=== PATIENT | female | born 1965 | race Caucasian/White ===

== ENCOUNTER → 2017-03-10 | Day surgery (SDC) | payer OTHER ==
[~2017-03-10] VITALS: Ht 160 cm; Wt 123.0 kg
[~2017-03-10] MED LIST: ALBUAER19 INH; ASPI81TA28 PO; CLB/200 PO; DIPH25TA24 PO; FENTANYL CITRATE INJ 50 MCG/1 ML 2 ML VIAL ONE; LACTATED RINGER'S 1000ML 1,000 ML IV ONE; LIDOCAINE HCL 2% 2 ML VIAL (20MG/ML) ONE; LISI-729 PO; LORA10TA51 PO; METF-384 PO; OMEG10007 PO; ONDANSETRON INJ 2 MG/ML 2 ML VIAL IV PRN; PROPOFOL IV EMULSION 10 MG/ML 20 ML VIAL IV ONE; SITA50TA3 PO
[2017-03-10 10:16] VITALS: Ht 160 cm; Wt 123.0 kg
[2017-03-10 10:28] VITALS: TEMP 36.5
--- NOTE | 2017-03-10 10:47 | Endo History and Physical ---
History & Physical Date of Service: Mar 10, 2017. Chief Complaint: SCREENING Referring Physician: DR Nolan GRAY History of Present Illness Patient referred for colon cancer screening today. She has a second-degree relative who had colon cancer in his mid 60s. She has no present symptoms. Past Surgical History Hx Cardiac Surgery: No Hx Internal Defibrillator: No Hx Pacemaker: No Hx Abdominal Surgery: Yes (TUBAL) Hx of Implantable Prosthesis: No Hx Post-Op Nausea and Vomiting: No Hx Cancer Surgery: No Hx Thoracic Surgery: No Hx Orthopedic: Yes (SCREWS RIGHT ANKLE) Hx Urinary Tract Surgery: No Tubal ligation Family History None, Polyp Social History Smoking Status: Current Every Day Smoker Hx Substance Use: No Hx Alcohol Use: No Allergies Coded Allergies: Ibuprofen (Verified Allergy, Unknown, RASH, 03/10/17) with brand name drug can take generic forms Naproxen (Verified Allergy, Unknown, rash, 03/10/17) Current Medications Reported Home Medications Medications Dose Route/Sig Max Daily Dose Days Date Category Januvia (Sitagliptin) 50 Mg Tab 50 Mg PO DAILY 03/10/17 Reported Zestril (Lisinopril) 5 Mg Tab 5 Mg PO DAILY 11/12/15 Reported CeleBREX (Celecoxib) 200 Mg Cap 200 Mg PO DAILY 11/12/15 Reported Claritin (Loratadine) 10 Mg Tab 10 Mg PO DAILY 11/12/15 Reported [place]-3 (Fish Oil) 1 Ea Cap 1 Cap PO DAILY 11/12/15 Reported Aspirin Ec (Aspirin) 81 Mg Tab 81 Mg PO DAILY 11/12/15 Reported Benadryl (Diphenhydramine Hcl) 25 Mg Tab 50 Mg PO Q4H PRN 04/07/15 Reported Ventolin Inhaler (Albuterol) Aers 2 Puffs INH UD PRN 11/15/14 Reported Vital Signs Weight (Kilograms): 123 Height (Feet): 5 Height (Inches): 3 Date Time Temp Pulse Resp B/P (MAP) Pulse Ox O2 Delivery O2 Flow Rate FiO2 03/10/17 10:28 36.5 75 18 147/64 (91) 97 Room Air Physical Exam General Appearance: no apparent distress Respiratory/Chest: Auscultation: breath sounds normal Cardiovascular: Heart Auscultation: RRR Assessment and Plan Patient for colon cancer screening today. We have discussed the risks and benefits of the procedure to include bleeding, infection, perforation and missed colonic polyps.
--- NOTE | 2017-03-10 12:42 | GI REPORT ---
Procedure Date: 03/10/2017 12:02 PM Procedure: Colonoscopy Indications: Screening for colorectal malignant neoplasm Medicines: Monitored Anesthesia Care Complications: No immediate complications. Estimated blood loss: Minimal. Estimated Blood Loss: Estimated blood loss was minimal. Procedure: Pre-Anesthesia Assessment: - Prior to the procedure, a History and Physical was performed, and patient medications, allergies and sensitivities were reviewed. The patient's tolerance of previous anesthesia was reviewed. - The risks and benefits of the procedure and the sedation options and risks were discussed with the patient. All questions were answered and informed consent was obtained. - Patient identification and proposed procedure were verified prior to the procedure by the physician, the nurse and the community planner. The procedure was verified in the procedure room. - Pre-procedure physical examination revealed no contraindications to sedation. - ASA Grade Assessment: III - A patient with severe systemic disease. - After reviewing the risks and benefits, the patient was deemed in satisfactory condition to undergo the procedure. - The anesthesia plan was to use monitored anesthesia care (MAC). - Immediately prior to administration of medications, the patient was re-assessed for adequacy to receive sedatives. - The heart rate, respiratory rate, oxygen saturations, blood pressure, adequacy of pulmonary ventilation, and response to care were monitored throughout the procedure. - The physical status of the patient was re-assessed after the procedure. After I obtained informed consent, the scope was passed under direct vision. Throughout the procedure, the patient's blood pressure, pulse, and oxygen saturations were monitored continuously. The scope was introduced through the anus and advanced to the terminal ileum. The colonoscopy was performed without difficulty. The patient tolerated the procedure well. The quality of the bowel preparation was good. Findings: The perianal and digital rectal examinations were normal. Pertinent negatives include normal sphincter tone. The terminal ileum appeared normal. A 5 mm polyp was found in the transverse colon. The polyp was sessile. The polyp was removed with a cold snare. Resection and retrieval were complete. Estimated blood loss was minimal. A 5 mm polyp was found in the sigmoid colon. The polyp was sessile. The polyp was removed with a cold snare. Resection and retrieval were complete. Estimated blood loss was minimal. Internal hemorrhoids were found during retroflexion. The hemorrhoids were mild. The exam was otherwise without abnormality. Impression: - The examined portion of the ileum was normal. - One 5 mm polyp in the transverse colon, removed with a cold snare. Resected and retrieved. - One 5 mm polyp in the sigmoid colon, removed with a cold snare. Resected and retrieved. - Internal hemorrhoids. - The examination was otherwise normal. Recommendation: - Discharge patient to home (ambulatory). - Advance diet as tolerated today. - Await pathology results. - Repeat colonoscopy in 3 - 5 years for surveillance based on pathology results. - Return to GI office PRN. Nicole Junior D.O. Nicole Junior, 03/10/2017 12:41:33 PM This report has been signed electronically. Note Initiated On: 03/10/2017 12:02 PM I attest to the content of the Intraoperative Record and orders documented therein, exceptions below
--- NOTE | 2017-03-10 12:45 | Anesthesiology Progress Note ---
Anesthesia Post Op Note Date & Time Mar 10, 2017 at 12:45 Vital Signs Pain Intensity: 0 Vital Signs Past 12 Hours Date Time Temp Pulse Resp B/P (MAP) Pulse Ox O2 Delivery O2 Flow Rate FiO2 03/10/17 12:41 75 18 111/63 (79) 96 Room Air 03/10/17 12:34 75 18 97/49 (65) 96 Room Air 03/10/17 10:28 36.5 75 18 147/64 (91) 97 Room Air Notes Mental Status: alert / awake / arousable, participated in evaluation Pt Amnestic to Procedure: Yes Nausea / Vomiting: adequately controlled Pain: adequately controlled Airway Patency, RR, SpO2: stable & adequate BP & HR: stable & adequate Hydration State: stable & adequate Anesthetic Complications: no major complications apparent
--- NOTE | 2017-03-10 12:46 | Discharge Instructions ---
Endoscopy Patient Instructions Date / Procedure(s) Performed Mar 10, 2017. Colonoscopy Allergy Information Coded Allergies: Ibuprofen (Verified Allergy, Unknown, RASH, 03/10/17) with brand name drug can take generic forms Naproxen (Verified Allergy, Unknown, rash, 03/10/17) Discharge Date / Findings Mar 10, 2017. Internal hemorrhoids 2 small colon polyps Medication Instructions Reported Home Medications Medications Dose Route/Sig Max Daily Dose Days Date Category Januvia (Sitagliptin) 50 Mg Tab 50 Mg PO DAILY 03/10/17 Reported Zestril (Lisinopril) 5 Mg Tab 5 Mg PO DAILY 11/12/15 Reported CeleBREX (Celecoxib) 200 Mg Cap 200 Mg PO DAILY 11/12/15 Reported Claritin (Loratadine) 10 Mg Tab 10 Mg PO DAILY 11/12/15 Reported [place]-3 (Fish Oil) 1 Ea Cap 1 Cap PO DAILY 11/12/15 Reported Aspirin Ec (Aspirin) 81 Mg Tab 81 Mg PO DAILY 11/12/15 Reported Benadryl (Diphenhydramine Hcl) 25 Mg Tab 50 Mg PO Q4H PRN 04/07/15 Reported Ventolin Inhaler (Albuterol) Aers 2 Puffs INH UD PRN 11/15/14 Reported Provider Instructions Activity Restrictions - No exercising or heavy lifting for 24 hours. - Do not drink alcohol the day of the procedure. - Do not drive a car or operate machinery until the day after the procedure. - Do not make any important decisions or sign important papers in 24 hours after the procedure. Following Day: - Return to full activity which may include returning to work/school. Diet Start your diet with liquids and light foods (jello, soup, juice, toast). Then eat your usual diet if not nauseated. Treatment For Common After Affects For mild abdominal pain, bloating, or excessive gas: - Rest - Eat lightly - Lie on right side Follow-Up Information Follow-up with DR Nolan GRAY as scheduled Repeat colonoscopy in 3-5 years depending on pathology results. Anesthesia Information What You Should Know You have had a procedure that required some medicine to reduce anxiety and discomfort. This treatment is called moderate sedation. After receiving the treatment, you may be sleepy, but you will be able to breathe on your own. The effects of the treatment may last for several hours. Follow these instructions along with Activity/Diet recommendations noted above: * Do NOT do anything where dizziness or clumsiness would be dangerous. * Rest quietly at home today, then you can be up and about tomorrow. * Have a responsible person stay with you the rest of today. * You may have had an I.V. today. If so, you may take the dressing off later today. Recommendations Call your doctor if: * Trouble breathing * Continuous vomiting for more than 24 hours * Temperature above 101 degrees * Severe abdominal pain or bloating * Pain not relieved by pain medicine ordered * There is increased drainage or redness from any incision * A large amount of rectal bleeding greater than 2-3 tablespoons. (If you had a polyp/s removed or have hemorrhoids, a small amount of blood - from the rectum is to be expected.) * You have any unanswered questions or concerns. IN THE EVENT OF A SERIOUS EMERGENCY, GO TO THE NEAREST EMERGENCY ROOM Your discharge instructions were prepared by provider Nicole Junior. Patient Instructions Signature Page Josey Rotmhan Patient (or Guardian) Signature/Date: I have read and understand the instructions given to me by my caregivers. Caregiver/RN/Doctor Signature/Date: The above-named patient and/or guardian has received patient instructions on this date. + Original Patient Signature Page (only) stays with chart. Please make copy for patient.
[2017-03-10 12:52] VITALS: BP 122/73; PULSE 72; O2SAT 98
== END | disposition home or self-care (01) ==
LOC: C.GI 09:57
PROVIDERS: ATTEND Internal Medicine Gastroenterology
DX: Z12.11 Encounter for screening for malignant neoplasm of colon (principal); D12.5 Benign neoplasm of sigmoid colon; D12.3 Benign neoplasm of transverse colon; F17.200 Nicotine dependence, unspecified, uncomplicated

== ENCOUNTER 2017-07-24 04:38 | Emergency (ER) | payer SELFPAY ==
[~2017-07-24] VITALS: Ht 160 cm; Wt 126.8 kg
[~2017-07-24 04:38] MED LIST changes: -FENTANYL CITRATE INJ 50 MCG/1 ML 2 ML VIAL ONE; -LACTATED RINGER'S 1000ML 1,000 ML IV ONE; -LIDOCAINE HCL 2% 2 ML VIAL (20MG/ML) ONE; -METF-384 PO; -ONDANSETRON INJ 2 MG/ML 2 ML VIAL IV PRN; -PROPOFOL IV EMULSION 10 MG/ML 20 ML VIAL IV ONE; +VARE1PAK15 PO
[2017-07-24 04:44] VITALS: TEMP 36.6; Ht 160 cm; Wt 126.8 kg
[2017-07-24 05:39] VITALS: O2SAT 98
[2017-07-24 05:58] LABS: BASO % 0.3 %; BASO ABS # 0.04 K/uL (0-0.2); EOS % 0.6 %; EOS ABS # 0.08 K/uL (0-0.5); HEMATOCRIT 42.5 % (37-47); HEMOGLOBIN 14.4 g/dL (12.0-16.0); IG# 0.03 K/uL (0.00-0.02); LYMPH % 29.2 %; LYMPH ABS # 3.77 K/uL (1.2-3.4); MEAN CELL VOLUME 87.6 fL (80-100); MEAN CORPUSCULAR HEMOGLOBIN 29.7 pg (25-34); MEAN CORPUSCULAR HGB CONC 33.9 g/dl (32-36); MEAN PLATELET VOLUME 9.8 fL (7.4-10.4); MONO % 5.4 %; NEUT % 64.3 %; NEUT ABS # 8.31 K/uL (1.4-6.5); PLATELET COUNT 262 K/uL (130-400); RED CELL DISTRIBUTION WIDTH CV 13.4 % (11.5-14.5); RED CELL DISTRIBUTION WIDTH SD 42.6 fL (36.4-46.3); WHITE BLOOD COUNT 12.93 K/uL (4.8-10.8)
[2017-07-24 06:08] LABS: ALBUMIN 3.1 gm/dl (3.4-5.0); ALT/SGPT 19 U/L (12-78); AST/SGOT 9 U/L (15-37); BLOOD UREA NITROGEN 13 mg/dl (7-18); CALCIUM 8.4 mg/dl (8.5-10.1); CARBON DIOXIDE 29 mmol/L (21-32); CREATININE 0.65 mg/dl (0.60-1.20); GLUCOSE 149 mg/dl (70-99); SODIUM 138 mmol/L (136-145)
[2017-07-24] MEDS ORDERED: LPT40 PO (06:09)
[2017-07-24] MEDS ORDERED: FLUT1INH3 PO (06:09)
[2017-07-24] MEDS ORDERED: ULT50 PO (06:09)
[2017-07-24] MEDS ORDERED: CYM60 PO (06:09)
[2017-07-24] MEDS ORDERED: EPP3/2 INJ (06:09)
[2017-07-24] MEDS ORDERED: LIDOCAINE HCL 2% VISC SOLN 20 ML UDC PO STA (06:10)
[2017-07-24] MEDS ORDERED: ALUMINUM/MAGNESIUM SUSP 30 ML UDC PO STA (06:10)
[2017-07-24 06:13] LABS: ALKALINE PHOSPHATASE 114 U/L (45-117); CKMB < 0.5 ng/ml (0.5-3.6); TOTAL PROTEIN 7.4 gm/dl (6.4-8.2)
--- NOTE | 2017-07-24 06:30 | DIAGNOSTIC IMAGING REPORT ---
CHEST ONE VIEW PORTABLE CLINICAL HISTORY: Chest pain. COMPARISON STUDY: Chest radiograph July 11, 2015. FINDINGS: Lung volumes are normal. No pneumothorax or pleural effusion is noted. There is no consolidation to suggest pneumonia. Cardiac size is at the upper limits of normal. There is no evidence of pulmonary edema. IMPRESSION: No acute cardiopulmonary findings. Electronically signed by: Attila Harrison M.D. 07/24/2017 6:28 AM Dictated Date/Time: 07/24/2017 6:27 AM
[2017-07-24 08:00] VITALS: BP 129/66; PULSE 70; O2SAT 99
--- NOTE | 2017-07-24 22:59 | EMERGENCY ROOM VISIT NOTE ---
History Report prepared by Jordan: Anais Dillon Under the Supervision of: Dr. Aruna Chopra D.O. First contact with patient: 05:20 Chief Complaint: CHEST PAIN Stated Complaint: CHEST PAIN Nursing Triage Summary: Patient reports midsternal chest pain that began approx 0330, woke her from sleep. Patient denies cardiac history. Reports shortness of breath. History of Present Illness The patient is a 51 year old female who presents to the Emergency Room with complaints of sudden chest pain starting two hours ago. The patient states that it woke her up out of her sleep. She states that the pain is in the center. She states that she has had this once before. The patient notes that she felt fine before going to bed. The patient currently rates her pain as a 6/10 in severity. The patient complains of shortness of breath. The patient denies nausea, vomiting, diaphoresis, lightheadedness, leg cramping, leg swelling, and a cardiac history. She notes that she did not eat anything before bed that would give her reflux. Source of History: patient Onset: two hours ago Position: chest Symptom Intensity: 6/10 Timing: other (sudden) Associated Symptoms: + SOB, No diaphoresis, No nausea, No vomiting Note: The patient denies lightheadedness, leg cramping, and leg swelling. Review of Systems See HPI for pertinent positives & negatives. A total of 10 systems reviewed and were otherwise negative. Past Medical & Surgical Medical Problems: (1) CHRONIC SINUSITIS NOS (2) MORBID OBESITY (3) PNEUMONIA, ORGANISM NOS (4) TOBACCO USE DISORDER Family History Diabetes mellitus Heart disease Hypertension Social History Smoking Status: Current Every Day Smoker Alcohol Use: none Marital Status: single Housing Status: lives with family Occupation Status: employed Current/Historical Medications Scheduled Aspirin (Aspirin Ec), 81 MG PO DAILY Atorvastatin (Lipitor), 40 MG PO DAILY Celecoxib (CeleBREX), 200 MG PO DAILY Duloxetine HCl (Duloxetine HCl), 60 MG PO DAILY Fluticasone Furoate (Inhalatio (Arnuity Ellipta), 1 PUFF PO DAILY Lisinopril (Zestril), 5 MG PO DAILY Sitagliptin (Januvia), 50 MG PO DAILY Varenicline Tartrate (Chantix Starting Month Pa), PO UD Scheduled PRN Epinephrine (Epipen 2-Iglesia), 0.3 MG INJ UD PRN for Allergic Reaction Loratadine (Claritin), 10 MG PO DAILY PRN for Nasal Congestion Tramadol HCl (Tramadol HCl), 1-2 TABS PO TID PRN for Pain Allergies Coded Allergies: Ibuprofen (Verified Allergy, Unknown, RASH, 07/24/17) with brand name drug can take generic forms Naproxen (Verified Allergy, Unknown, rash, 07/24/17) Physical Exam Vital Signs Date Time Temp Pulse Resp B/P (MAP) Pulse Ox O2 Delivery O2 Flow Rate FiO2 07/24/17 08:00 70 18 129/66 99 07/24/17 07:51 66 07/24/17 07:08 59 18 126/63 98 Room Air 07/24/17 06:40 69 18 124/45 98 Room Air 07/24/17 05:39 98 Room Air 07/24/17 05:38 66 07/24/17 04:44 36.6 75 18 140/74 97 Room Air Physical Exam General: Obese. Appears comfortable on exam. HEENT: Head - normocephalic and atraumatic Pupils are equal, round, and reactive to light. Extraocular eye muscles are intact, and sclera are anicteric. Nose - moist nasal mucosa without discharge. Mouth - moist buccal mucosa. Oropharynx is nonerythematous and there is no tonsillar exudate or edema noted. Neck: Supple; no JVD, nuchal rigidity, cervical lymphadenopathy, or auscultated bruits. Heart: Regular rate and rhythm. There is a normal S1 and S2 with no murmurs, clicks, or gallops appreciated. Lungs: Clear to auscultation bilaterally with no wheezes, rales, or rhonchi. Abdomen: Soft, completely nontender, nondistended, with good bowel sounds. There are no palpable pulsatile masses or hepatosplenomegaly. There is no guarding, rigidity, or rebound noted. Extremities: No evidence of cyanosis, clubbing, or edema. There are easily palpable peripheral pulses. Skin: warm and dry with good turgor and no rashes. Medical Decision & Procedures ER Provider Diagnostic Interpretation: Radiology results as stated below per my review and the radiologist's interpretation: CHEST ONE VIEW PORTABLE CLINICAL HISTORY: Chest pain. COMPARISON STUDY: Chest radiograph July 11, 2015. FINDINGS: Lung volumes are normal. No pneumothorax or pleural effusion is noted. There is no consolidation to suggest pneumonia. Cardiac size is at the upper limits of normal. There is no evidence of pulmonary edema. IMPRESSION: No acute cardiopulmonary findings. Electronically signed by: Attila Harrison M.D. 07/24/2017 6:28 AM Dictated Date/Time: 07/24/2017 6:27 AM Laboratory Results 07/24/17 05:36 Red Blood Count 4.85, Mean Corpuscular Volume 87.6, Mean Corpuscular Hemoglobin 29.7, Mean Corpuscular Hemoglobin Concent 33.9, Mean Platelet Volume 9.8, Neutrophils (%) (Auto) 64.3, Lymphocytes (%) (Auto) 29.2, Monocytes (%) (Auto) 5.4, Eosinophils (%) (Auto) 0.6, Basophils (%) (Auto) 0.3, Neutrophils # (Auto) 8.31, Lymphocytes # (Auto) 3.77, Monocytes # (Auto) 0.70, Eosinophils # (Auto) 0.08, Basophils # (Auto) 0.04 07/24/17 05:36 Test 07/24/17 05:36 07/24/17 07:13 White Blood Count 12.93 K/uL (4.8-10.8) Red Blood Count 4.85 M/uL (4.2-5.4) Hemoglobin 14.4 g/dL (12.0-16.0) Hematocrit 42.5 % (37-47) Mean Corpuscular Volume 87.6 fL (80-100) Mean Corpuscular Hemoglobin 29.7 pg (25-34) Mean Corpuscular Hemoglobin Concent 33.9 g/dl (32-36) Platelet Count 262 K/uL (130-400) Mean Platelet Volume 9.8 fL (7.4-10.4) Neutrophils (%) (Auto) 64.3 % Lymphocytes (%) (Auto) 29.2 % Monocytes (%) (Auto) 5.4 % Eosinophils (%) (Auto) 0.6 % Basophils (%) (Auto) 0.3 % Neutrophils # (Auto) 8.31 K/uL (1.4-6.5) Lymphocytes # (Auto) 3.77 K/uL (1.2-3.4) Monocytes # (Auto) 0.70 K/uL (0.11-0.59) Eosinophils # (Auto) 0.08 K/uL (0-0.5) Basophils # (Auto) 0.04 K/uL (0-0.2) RDW Standard Deviation 42.6 fL (36.4-46.3) RDW Coefficient of Variation 13.4 % (11.5-14.5) Immature Granulocyte % (Auto) 0.2 % Immature Granulocyte # (Auto) 0.03 K/uL (0.00-0.02) Anion Gap 2.0 mmol/L (3-11) Est Creatinine Clear Calc Drug Dose 134.3 ml/min Estimated GFR () 120.0 Estimated GFR (Non- 103.5 BUN/Creatinine Ratio 19.4 (10-20) Calcium Level 8.4 mg/dl (8.5-10.1) Total Bilirubin 0.3 mg/dl (0.2-1) Aspartate Amino Transf (AST/SGOT) 9 U/L (15-37) Alanine Aminotransferase (ALT/SGPT) 19 U/L (12-78) Alkaline Phosphatase 114 U/L (45-117) Total Creatine Kinase 49 U/L (26-192) Creatine Kinase MB < 0.5 ng/ml (0.5-3.6) Creatine Kinase MB Ratio (0-3.0) Total Protein 7.4 gm/dl (6.4-8.2) Albumin 3.1 gm/dl (3.4-5.0) Globulin 4.3 gm/dl (2.5-4.0) Albumin/Globulin Ratio 0.7 (0.9-2) Troponin I < 0.015 ng/ml (0-0.045) Laboratory results per my review. Medications Administered Medications (Trade) Dose Ordered Sig/Precious Route Start Time Stop Time Status Last Admin Dose Admin Lidocaine HCl (Viscous Lidocaine 2% Soln) 10 ml NOW STAT PO 07/24/17 06:10 07/24/17 06:12 DC 07/24/17 06:10 10 ML Al Hydroxide/Mg Hydroxide (Maalox Susp) 30 ml NOW STAT PO 07/24/17 06:10 07/24/17 06:12 DC 07/24/17 06:10 30 ML Procedure 0610: Ordered Maalox Susp 30 ml PO, Lidocaine HCl 10 ml PO. ECG Indication: chest pain Rate (beats per minute): 67 Rhythm: normal sinus Findings: no acute ischemic change, no ectopy ED Course 0539: Past medical records reviewed. The patient was evaluated in room A2. A complete history and physical exam was performed. A twelve-lead EKG was obtained as described above. A chest x-ray was performed. 0540: I interpreted the patient's EKG at this time. It was normal with no signs of ischemia. 0610: Ordered Maalox Susp 30 ml PO, Lidocaine HCl 10 ml PO. 0632: I reevaluated the patient and she just received the GI Cocktail. 0649: I reevaluated the patient and she feels better after the GI Cocktail. She had a repeat troponin which remained negative. She had no return of her chest discomfort. 0752: Upon reevaluation, the patient is feeling better. She asked for a work note. I discussed findings and results with her. She verbalized agreement of the treatment plan. The patient was discharged home. Medical Decision The patient is a 51 year old female who presents to the Emergency Room with complaints of sudden chest pain starting two hours ago. Differential diagnoses include GERD, cardiac ischemia, aortic dissection, costochondritis, pleurisy, pneumonia. LABS: White count 12.9 Stable H&H Normal renal function Glucose 149 Normal cardiac enzymes Repeat Troponin less than 0.015 This is a 51-year-old female patient presents to the emergency department with an episode of chest discomfort which woke her from sleep. The pain resolved after a GI cocktail. She has a normal EKG with 2 negative troponins. Her pain has resolved. I spent some time talking to the patient about further workup to rule out heart disease. We did talk about her risk factors. I encouraged her to stop smoking. She was told to return to the ER immediately if she developed worsening discomfort in her chest, nausea, diaphoresis or shortness of breath. Otherwise, she should follow-up with his PCP on Wednesday to schedule outpatient stress testing. Medication Reconcilliation Current Medication List: was personally reviewed by me Blood Pressure Screening Patient's blood pressure: Normal blood pressure Blood pressure disposition: Did not require urgent referral Impression Primary Impression: Left sided chest pain Scribe Attestation The scribe's documentation has been prepared under my direction and personally reviewed by me in its entirety. I confirm that the note above accurately reflects all work, treatment, procedures, and medical decision making performed by me. Departure Information Dispostion Home / Self-Care Referrals Yanni Tillman D.O. (PCP) Forms Call Back Authorization, HOME CARE DOCUMENTATION FORM, IMPORTANT VISIT INFORMATION Patient Instructions My [facility] Additional Instructions Return to the ED if you develop increased chest pain, shortness of breath, nausea, or sweating. Follow up on Wednesday with your PCP for further cardiac testing - stress test, etc. Stop smoking.
== END 2017-07-24 08:02 | disposition home or self-care (01) ==
LOC: C.EDB 04:39 → C.EDA 08:02
DX: R07.9 Chest pain, unspecified (principal); J32.9 Chronic sinusitis, unspecified; E66.01 Morbid (severe) obesity due to excess calories; Z87.01 Personal history of pneumonia (recurrent); F17.210 Nicotine dependence, cigarettes, uncomplicated; Z83.3 Family history of diabetes mellitus; Z82.49 Family history of ischemic heart disease and other diseases of the circulatory system; Z79.82 Long term (current) use of aspirin; Z79.899 Other long term (current) drug therapy

== ENCOUNTER 2017-07-30 20:40 | Inpatient (IN) | payer SELFPAY ==
[~2017-07-30] VITALS: Ht 160 cm; Wt 120.0 kg
[~2017-07-30 20:40] MED LIST changes: -ALBUAER19 INH; +CYM60 PO; -DIPH25TA24 PO; +EPP3/2 INJ; +FLUT1INH3 PO; +LPT40 PO; -OMEG10007 PO; +ULT50 PO
[2017-07-30] MEDS ORDERED: OPTIRAY 320 IV PRN (21:30)
--- NOTE | 2017-07-30 21:43 | DIAGNOSTIC IMAGING REPORT ---
CHEST ONE VIEW PORTABLE CLINICAL HISTORY: 51 years-old Female presenting with EVALUATE FOR TRAUMA/INJURY. TECHNIQUE: Portable upright AP view of the chest was obtained. COMPARISON: 07/24/2017. FINDINGS: Cardiac silhouette normal in size. Pulmonary vascular prominence. Lungs and pleural spaces clear. Osseous structures normal. Upper abdomen normal. IMPRESSION: 1. Findings could suggest volume overload. Otherwise no acute cardiopulmonary disease. Electronically signed by: Roby Garcia M.D. 07/30/2017 9:41 PM Dictated Date/Time: 07/30/2017 9:40 PM
[2017-07-30 22:15] LABS: BASO % 0.3 %; BASO ABS # 0.05 K/uL (0-0.2); EOS % 0.1 %; EOS ABS # 0.02 K/uL (0-0.5); HEMATOCRIT 45.4 % (37-47); HEMOGLOBIN 15.4 g/dL (12.0-16.0); IG# 0.09 K/uL (0.00-0.02); LYMPH % 15.2 %; LYMPH ABS # 2.74 K/uL (1.2-3.4); MEAN CELL VOLUME 87.5 fL (80-100); MEAN CORPUSCULAR HEMOGLOBIN 29.7 pg (25-34); MEAN CORPUSCULAR HGB CONC 33.9 g/dl (32-36); MEAN PLATELET VOLUME 9.9 fL (7.4-10.4); MONO % 5.3 %; MONO ABS # 0.96 K/uL (0.11-0.59); NEUT % 78.6 %; NEUT ABS # 14.18 K/uL (1.4-6.5); PLATELET COUNT 286 K/uL (130-400); RED CELL DISTRIBUTION WIDTH CV 13.5 % (11.5-14.5); RED CELL DISTRIBUTION WIDTH SD 43.2 fL (36.4-46.3); WHITE BLOOD COUNT 18.04 K/uL (4.8-10.8)
[2017-07-30 22:39] LABS: PTT PATIENT 26.6 SECONDS (21.0-31.0)
[2017-07-30 23:11] LABS: POTASSIUM 3.8 mmol/L (3.5-5.1); SODIUM 134 mmol/L (136-145)
[2017-07-30 23:16] LABS: AST/SGOT 29 U/L (15-37)
[2017-07-30 23:24] LABS: ALBUMIN 3.6 gm/dl (3.4-5.0); ALKALINE PHOSPHATASE 117 U/L (45-117); ALT/SGPT 38 U/L (12-78); BLOOD UREA NITROGEN 16 mg/dl (7-18); CARBON DIOXIDE 22 mmol/L (21-32); CREATININE 0.75 mg/dl (0.60-1.20); GLUCOSE 135 mg/dl (70-99); TOTAL PROTEIN 8.1 gm/dl (6.4-8.2)
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
[2017-07-31] MEDS ORDERED: ATORVASTATIN 40 MG TAB PO STA (06:49)
[2017-07-31] MEDS ORDERED: ASPIRIN 81 MG ECTAB PO STA (06:49)
[2017-07-31] MEDS ORDERED: LISINOPRIL 5 MG TAB PO ONE (07:00)
--- NOTE | 2017-07-31 07:01 | EMERGENCY ROOM VISIT NOTE ---
ED Visit Note First contact with patient: 05:04 This case was signed out to me awaiting bed placement. The patient rested comfortably throughout the night. The bed search was suspended overnight. Her morning medications were ordered. The case was signed out to Dr. Encarnacion at change of shift.
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
[2017-07-31] MEDS ORDERED: SITAGLIPTIN 25 MG TAB PO SCH (09:00)
[2017-07-31] MEDS ORDERED: NURSING VERBAL MED ORDER ONE (13:00)
[2017-07-31] MEDS ORDERED: TRAMADOL HCL 50 MG TAB PO STA (13:06)
[2017-07-31] MEDS ORDERED: ACETAMINOPHEN 500 MG TAB PO STA (13:06)
--- NOTE | 2017-07-31 13:24 | Psych Management Progress Note ---
Psychiatry Miscellaneous Date of Service: Jul 31, 2017. As to review as patient has been in the emergency room since yesterday awaiting placement on a 302 commitment. She is not on any psychotropic medications, and has been given her home medications this morning. He have an expected female discharge this afternoon, and will be able to admit the patient to the behavioral health unit at that time.
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
[2017-07-31] MEDS ORDERED: TRAMADOL HCL 50 MG TAB PO PRN (16:15)
[2017-07-31] MEDS ORDERED: MAGNESIUM HYDROXIDE SUSP 30 ML UDC PO PRN (16:15)
[2017-07-31] MEDS ORDERED: hydrOXYzine HCL 25 MG TAB PO PRN ×2 (16:15)
[2017-07-31] MEDS ORDERED: EPINEPHRINE ADULT AUTO-INJECT 0.3 MG SYR IM PRN (16:15)
[2017-07-31] MEDS ORDERED: SODIUM CHLORIDE 0.65% NA SOLN 45 ML (OCEAN) PRN (16:15)
[2017-07-31] MEDS ORDERED: BISMUTH SUBSALICYLATE PER ML OMNICELL CHARGE PO PRN (16:15)
[2017-07-31] MEDS ORDERED: ALUMINUM/MAGNESIUM SUSP 30 ML UDC PO PRN (16:15)
[2017-07-31] MEDS ORDERED: DULO60CA44 PO (16:34)
--- NOTE | 2017-07-31 17:14 | EMERGENCY ROOM VISIT NOTE ---
ED Visit Note First contact with patient: 15:23 I assumed care at the change of shift, Dr. Encarnacion had been the physician prior to me. The patient was seen by the psychiatry services at our hospital. She has been accepted to the psychiatry floor, [address] [facility]. She has been cooperative under my stay.
[2017-07-31 17:16] VITALS: O2SAT 95
[2017-07-31] MEDS ORDERED: LORAZEPAM 2 MG/ML 1 ML VIAL IM STA (17:44)
[2017-07-31] MEDS ORDERED: HALOPERIDOL LACTATE 5 MG/ML 1 ML VIAL IM STA (17:44)
--- NOTE | 2017-07-31 17:47 | EMERGENCY ROOM VISIT NOTE ---
ED Visit Note First contact with patient: 15:23 As the patient was being readied to be transferred to the psychiatric floor of this hospital, she became uncooperative. The psychiatrist subcontract manager requested IM Haldol and IM Ativan for behavioral control. This was ordered. She was given 10 mg of Haldol IM, 2 mg of Ativan IM.
[2017-07-31] MEDS ORDERED: LORAZEPAM 1 MG TAB SL STA (18:12)
[2017-07-31] MEDS ORDERED: HALOPERIDOL 5 MG TAB PO STA (18:12)
[2017-07-31] MEDS: ACETAMINOPHEN 325 MG TAB PO PRN (18:30)
--- NOTE | 2017-07-31 18:34 | EMERGENCY ROOM VISIT NOTE ---
ED Visit Note First contact with patient: 15:23 Before the IM Haldol and IM Ativan were given, the patient consented to transfer to the psychiatry floor. She agreed to take some oral Ativan. 2 mg sublingual was given. I did speak with her, she is now cooperative and understands her situation and the need for a hospital stay. She consented to taking the Ativan orally. I did speak with Dr. Dimas of psychiatry. She is aware of the canceled order for the IM Haldol and IM Ativan.
[2017-07-31] MEDS ORDERED: NICOTINE 21 MG/24 HR TDSY EXT STA (18:35)
[2017-07-31 20:41] VITALS: BP 131/78; PULSE 81; TEMP 36.6; Ht 160 cm; Wt 120.0 kg
[2017-08-01 06:52] VITALS: BP_SYST 121; BP_SYST 156; BP_DIAS 77; BP_DIAS 84; PULSE 77; PULSE 87; TEMP 36.8
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
[2017-08-01] MEDS: CeleBREX 200 MG CAP PO SCH (08:49)
[2017-08-01] MEDS: ASPIRIN 81 MG ECTAB PO SCH (08:50)
[2017-08-01] MEDS: ATORVASTATIN 40 MG TAB PO SCH (08:50)
[2017-08-01] MEDS: LISINOPRIL 5 MG TAB PO SCH (08:50)
[2017-08-01] MEDS ORDERED: LISINOPRIL 5 MG TAB PO SCH (09:00)
[2017-08-01] MEDS ORDERED: ATORVASTATIN 40 MG TAB PO SCH (09:00)
[2017-08-01] MEDS ORDERED: CeleBREX 200 MG CAP PO SCH (09:00)
[2017-08-01] MEDS ORDERED: ASPIRIN 81 MG ECTAB PO SCH (09:00)
[2017-08-01] MEDS: FLUTICASONE FUROATE SCH (09:00)
--- NOTE | 2017-08-01 09:38 | DIAGNOSTIC IMAGING REPORT ---
CHEST 2 VIEWS ROUTINE CLINICAL HISTORY: 51 years-old Female presenting with per ER recs - rib fractures, checking for fluid accumulation. TECHNIQUE: PA and lateral views of the chest were obtained. COMPARISON: 07/30/2017. FINDINGS: Cardiomediastinal silhouette normal. Lungs and pleural spaces clear. Nondisplaced rib fractures not radiographically apparent. Upper abdomen normal. IMPRESSION: 1. No acute cardiopulmonary disease. 2. Bilateral rib fractures not radiographically apparent. No fluid accumulation as clinically queried. Electronically signed by: Roby Garcia M.D. 08/01/2017 9:37 AM Dictated Date/Time: 08/01/2017 9:35 AM
[2017-08-01] MEDS: NICOTINE 21 MG/24 HR TDSY TD SCH (10:17)
[2017-08-01] MEDS: TRAMADOL HCL 50 MG TAB PO PRN (13:42)
[2017-08-01] MEDS: ACETAMINOPHEN 325 MG TAB PO PRN (13:44)
[2017-08-02 06:51] VITALS: BP_SYST 144; BP_SYST 148; BP_DIAS 76; BP_DIAS 84; PULSE 62; PULSE 71; TEMP 36.8
[2017-08-02] MEDS: CeleBREX 200 MG CAP PO SCH (08:45)
[2017-08-02] MEDS: LISINOPRIL 5 MG TAB PO SCH (08:46)
[2017-08-02] MEDS: ASPIRIN 81 MG ECTAB PO SCH (08:46)
[2017-08-02] MEDS: ATORVASTATIN 40 MG TAB PO SCH (08:46)
[2017-08-02] MEDS: NICOTINE 21 MG/24 HR TDSY TD SCH (08:47)
[2017-08-02] MEDS: ACETAMINOPHEN 325 MG TAB PO PRN ×2 (08:55→21:16)
[2017-08-02] MEDS: TRAMADOL HCL 50 MG TAB PO PRN ×2 (08:56→18:45)
[2017-08-02] MEDS: FLUTICASONE FUROATE SCH (09:00)
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
[2017-08-03 05:37] LABS: HEMOGLOBIN A1C 7.1 % (4.5-5.6)
[2017-08-03 06:57] VITALS: BP_SYST 140; BP_SYST 141; BP_DIAS 77; BP_DIAS 84; PULSE 62; PULSE 67; TEMP 36.8
[2017-08-03] MEDS: CeleBREX 200 MG CAP PO SCH (09:09)
[2017-08-03] MEDS: ASPIRIN 81 MG ECTAB PO SCH (09:10)
[2017-08-03] MEDS: ATORVASTATIN 40 MG TAB PO SCH (09:10)
[2017-08-03] MEDS: LISINOPRIL 5 MG TAB PO SCH (09:10)
[2017-08-03] MEDS: TRAMADOL HCL 50 MG TAB PO PRN (09:11)
[2017-08-03] MEDS: NICOTINE 21 MG/24 HR TDSY TD SCH (09:16)
[2017-08-03] MEDS ORDERED: ULT50 PO (09:44)
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
[2017-08-03] MEDS ORDERED: DESTROY THIS MEDICATION ONE (10:00)
== END 2017-08-03 10:54 | disposition home or self-care (01) | DRG 880 ==
LOC: EDBD 20:40 → C.EDA 20:44 → C.MHU 07-31 16:09 → ENRESERV 07-31 17:17
PROVIDERS: ADMIT Psychiatry & Neurology Psychiatry; ATTEND Psychiatry & Neurology Psychiatry
DX: R45.851 Suicidal ideations (principal); S22.41XA Multiple fractures of ribs, right side, initial encounter for closed fracture; E11.9 Type 2 diabetes mellitus without complications; Z83.3 Family history of diabetes mellitus; Z82.49 Family history of ischemic heart disease and other diseases of the circulatory system; Z79.82 Long term (current) use of aspirin; Z88.8 Allergy status to other drugs, medicaments and biological substances; F17.200 Nicotine dependence, unspecified, uncomplicated; E66.01 Morbid (severe) obesity due to excess calories; V89.2XXA Person injured in unspecified motor-vehicle accident, traffic, initial encounter

== ENCOUNTER 2018-01-26 19:46 | Emergency (ER) | payer SELFPAY ==
[~2018-01-26] VITALS: Ht 160 cm; Wt 126.5 kg
[~2018-01-26 19:46] MED LIST changes: -CYM60 PO; -LORA10TA51 PO; -VARE1PAK15 PO
[2018-01-26 19:48] VITALS: TEMP 36.6; Ht 160 cm; Wt 126.5 kg
[2018-01-26] MEDS ORDERED: LIDOCAINE/EPINEPHRINE 1% 20 ML VIAL INFIL STA (20:03)
[2018-01-26] MEDS ORDERED: OXYCODONE HCL IR 5 MG TAB (IMMEDIATE RELEASE) PO STA (20:03)
[2018-01-26] MEDS ORDERED: CEPHALEXIN 500MG HOME PACK 1 EA BTL PO STA (21:26)
[2018-01-26] MEDS ORDERED: CEPH500C PO ×2 (21:27→21:29)
[2018-01-26] MEDS ORDERED: OXYC-90 PO ×2 (21:27→21:29)
--- NOTE | 2018-01-26 21:30 | EMERGENCY ROOM VISIT NOTE ---
History First contact with patient: 19:58 Chief Complaint: WOUND INFECTION Stated Complaint: PAINFUL CYST ON BUTTOCK Nursing Triage Summary: Cyst to left buttocks History of Present Illness The patient is a 52 year old female who presents to the Emergency Room via private vehicle with complaints of "painful cyst on buttock". The patient notes that she has had a cyst on the left buttock region for about 2 years now. She notes that it continues to come and go. She notes she seen dermatology and she states that they have not removed it. It became painful today especially with sitting therefore prompting her arrival. She denies any fevers or chills. No history of Crohn's or ulcerative colitis. She rates the pain as a 7/10 Review of Systems A complete 6-point Review of Systems was discussed with the patient, with pertinent positives and negatives listed in the History of Present Illness. All remaining Review of Systems questions can be considered negative unless otherwise specified. Past Medical/Surgical History Medical Problems: (1) Arthritis (2) CHRONIC SINUSITIS NOS (3) Diabetes (4) MORBID OBESITY (5) PNEUMONIA, ORGANISM NOS (6) Ribs, multiple fractures (7) Suicidal ideation (8) TOBACCO USE DISORDER Family History Diabetes mellitus Heart disease Hypertension Social History Smoking Status: Current Every Day Smoker Alcohol Use: none Marital Status: single Housing Status: lives with family Occupation Status: employed Current/Historical Medications Scheduled Aspirin (Aspirin Ec), 81 MG PO DAILY Atorvastatin (Lipitor), 40 MG PO DAILY Celecoxib (CeleBREX), 200 MG PO DAILY Cephalexin Monohydrate (Keflex), 500 MG PO QID Fluticasone Furoate (Inhalatio (Arnuity Ellipta), 1 PUFF PO DAILY Lisinopril (Zestril), 5 MG PO DAILY Sitagliptin (Januvia), 50 MG PO DAILY Scheduled PRN Epinephrine (Epipen 2-Iglesia), 0.3 MG INJ UD PRN for Allergic Reaction Oxycodone Ir (Roxicodone Ir), 1 TAB PO Q4H PRN for Pain Tramadol HCl (Tramadol HCl), 1-2 TABS PO TID PRN for Pain Physical Exam Vital Signs Date Time Temp Pulse Resp B/P (MAP) Pulse Ox O2 Delivery O2 Flow Rate FiO2 01/26/18 22:35 84 20 125/77 98 01/26/18 19:48 36.6 105 18 141/68 94 Room Air Physical Exam VITAL SIGNS - Vital signs and nursing notes were reviewed. Stable. Afebrile. GENERAL -52-year-old female appearing her stated age who is in no acute distress. Communicates well with provider and answers questions appropriately. SKIN -overlying the left buttock, medial aspect there is a 2 cm in diameter slightly depressed/dimple-like region with surrounding induration, and erythema. No large palpable fluctuance. No drainage currently. Medical Decision & Procedures Medications Administered Medications (Trade) Dose Ordered Sig/Precious Route Start Time Stop Time Status Last Admin Dose Admin Lidocaine/ Epinephrine (Xylocaine/Epine 1% Inj) 20 ml ONE STAT INFIL 01/26/18 20:03 01/26/18 20:05 DC 01/26/18 20:24 20 ML Oxycodone HCl (Roxicodone Immediate Rel Tab) 10 mg NOW STAT PO 01/26/18 20:03 01/26/18 20:05 DC 01/26/18 20:26 10 MG Cephalexin Monohydrate (Keflex 500MG Home Pack) 1 homepack NOW STAT PO 01/26/18 21:26 01/26/18 21:27 DC 01/26/18 22:10 1 HOMEPACK Oxycodone HCl (Roxicodone Immediate Rel 5MG Home Pack) 1 homepack UD STAT PO 01/26/18 22:16 01/26/18 22:17 DC 01/26/18 22:34 1 HOMEPACK Medical Decision Patient was seen and evaluated as above in room D2. Review was performed of nursing notes and vital signs. After obtaining a thorough history and physical examination the above work up was performed. She presents to us today with an erythematous and indurated region on the right buttock. This is consistent with cellulitis likely overlying a chronic cyst. She notes she has had it for about 2 years off and on and sometimes becomes infected. This appears to be chronic in nature, the skin is hardened and indurated. I did elect to attempt an I&D. Consent was obtained. Region was cleansed and dressed with Betadine. 11 blade scalpel was utilized to incise a small portion of the center of the region. Minimal purulence. No evidence of large abscess. There was not enough to culture. Keflex will be initiated. She is to follow with general surgery for definitive removal/management. I do believe that pathology will likely need to be sent in the future when this is removed. Patient was educated upon differentials. She is to return with worsening. She is to call the family doctor tomorrow. She was given oxycodone here for pain and a short prescription. No red flags in the [place] drug monitoring system. The patient was educated upon management, had questions answered prior to discharge , and was discharged home in good condition. In the evaluation and treatment of this patient the following differential diagnoses were entertained: Cellulitis, abscess, cancer, among others. Impression Primary Impression: Cellulitis and abscess of buttock Departure Information Dispostion Home / Self-Care Condition GOOD Prescriptions Oxycodone Ir (Roxicodone Ir) 5 Mg Tab 1 TAB PO Q4H Y for Pain, #12 TAB For Initial Treatment Prov: Duc Milton PA-C 01/26/18 Cephalexin Monohydrate (Keflex) 500 Mg Cap 500 MG PO QID for 9 Days, #36 CAP . Prov: Duc Milton PA-C 01/26/18 Referrals No Doctor, Assigned (PCP) Edward Gracia M.D. Patient Instructions [facility] Additional Instructions You were seen in the emergency department for an infection in the left buttock. At this time I do recommend follow-up with general surgery as well as [facility] please call Dr. Gracia. Please take the Keflex 1 tablet every 6 hours. Remainder via prescription. Oxycodone 1 tablet every [address] with this. Please watch for fevers, chills or worsening symptoms if this occur please return.
[2018-01-26] MEDS ORDERED: OXYCODONE IR HOME PACK PO STA (22:16)
[2018-01-26 22:35] VITALS: BP 125/77; PULSE 84; O2SAT 98
== END 2018-01-26 22:37 | disposition home or self-care (01) ==
LOC: C.EDB 19:48 → C.EDD 22:37
DX: L03.317 Cellulitis of buttock (principal); L02.31 Cutaneous abscess of buttock; E11.9 Type 2 diabetes mellitus without complications; M19.90 Unspecified osteoarthritis, unspecified site; F17.200 Nicotine dependence, unspecified, uncomplicated; Z83.3 Family history of diabetes mellitus; Z79.82 Long term (current) use of aspirin; Z79.899 Other long term (current) drug therapy

== ENCOUNTER 2021-07-10 18:04 | Inpatient (IN) ==
[2021-07-10] MEDS ORDERED: SODIUM CHLORIDE 0.9% 1000ML 1,000 ML IV ONE (18:40)
[2021-07-10 18:56] LABS: Basophils # (auto) 0.03 K/uL (0-0.2); Basophils % (auto) 0.2 %; Eosinophils # (auto) 0.05 K/uL (0-0.5); Eosinophils % (auto) 0.3 %; Hematocrit (blood only) 42.5 % (37-47); Hemoglobin 14.1 g/dL (12.0-16.0); Immature Granulocytes # (auto) 0.05 K/uL (0.00-0.02); Immature Granulocytes % (auto) 0.3 %; Lymphocytes # (auto) 2.48 K/uL (1.2-3.4); Lymphocytes % (auto) 13.8 %; Mean Corpuscular Hemoglobin 29.5 pg (25-34); Mean Corpuscular Hgb Conc 33.2 g/dL (32-36); Mean Corpuscular Volume 88.9 fL (80-100); Mean Platelet Volume 9.4 fL (7.4-10.4); Monocytes # (auto) 1.02 K/uL (0.11-0.59); Monocytes % (auto) 5.7 %; Neutrophils # (auto) 14.34 K/uL (1.4-6.5); Neutrophils % (auto) 79.7 %; Platelet Count 354 K/uL (130-400); RDW Coefficient of Variation 12.9 % (11.5-14.5); RDW Standard Deviation 42.4 fL (36.4-46.3); Red Blood Count 4.78 M/uL (4.2-5.4); White Blood Count 17.97 K/uL (4.8-10.8)
--- NOTE | 2021-07-10 19:31 | Emergency Department Note ---
History of Present Illness General Chief complaint: Skin Problem Stated complaint: POSS CYST ON BUTT, UNABLE TO SIT Time Seen by Provider: 07/10/21 18:28 History of Present Illness Maximum Pain Intensity: 10 55-year-old female who presents to the emergency department with complaint of skin wounds on both buttocks. The patient reports that she has had a history of recurrent infections with drainage for over 3 years on the left buttock. Patient reports that she has followed up with her PCP with these infections, however reports that no one has referred her to a surgeon for I&D or wound debridement. The patient reports that over the past several days, she now is starting to get a wound on the right buttock as well. She reports notable swelling and pain. She denies any fevers, but has had chills. The patient is diabetic. She denies any abdominal or vaginal pain. She does report rectal pain, especially with bowel movements. The patient rates her discomfort a 10 out of 10. Home Medications Medication Instructions Recorded Confirmed Type aspirin 81 mg tablet,delayed 81 mg PO DAILY 12/11/18 12/11/18 History release (Aspir-) atorvastatin 40 mg tablet 40 mg PO DAILY 12/11/18 12/11/18 History celecoxib 200 mg capsule (Celebrex) 200 mg PO DAILY 12/11/18 12/11/18 History cyclobenzaprine 5 mg tablet 5 - 10 mg PO Q8H PRN #20 tab 12/11/18 Rx epinephrine 0.3 mg/0.3 mL 0.3 mg IM DIRECTED PRN 12/11/18 12/11/18 History injection, auto-injector (EpiPen) fluticasone furoate 100 1 inh INHALATION DAILY 12/11/18 12/11/18 History mcg/actuation blister powder for inhalation (Arnuity Ellipta) lisinopril 5 mg tablet 5 mg PO DAILY 12/11/18 12/11/18 History sitagliptin 50 mg tablet (Januvia) 50 mg PO DAILY 12/11/18 12/11/18 History Allergies Allergy/AdvReac Type Severity Reaction Status Date / Time ibuprofen AdvReac Intermediate RASH Verified 12/11/18 15:58 naproxen AdvReac Intermediate rash Verified 12/11/18 15:58 Past Med/Surg History Medical History No pertinent past medical history Surgical History No pertinent past surgical history Social History (Updated 07/10/21 @ 19:31 by Wilder Ann) Smoking Status: Current every day smoker Tobacco Type: Cigarettes Preferred Language: [place] marital status: current occupational status: employed Feels Safe at Home: Yes Review of Systems 10 system review was performed and was negative except for pertinent positives and negatives as indicated in history of present illness Physical Exam Vital Signs Vital Signs - 24 hr 07/10/21 18:18 Temperature 36.4 C L Temperature Source Oral Pulse Rate 110 H Respiratory Rate 18 Blood Pressure 139/87 Blood Pressure Mean 104 Pulse Oximetry 96 Oxygen Delivery Method Room Air Sepsis Recent Fever Within 48 Hours No Sepsis New/Unexplained Change in Mental Status No Sepsis Action Taken by Nursing No Action Required CONSTITUTIONAL: Obese female in moderate discomfort. HEENT: No scleral icterus or conjunctival injection. RESPIRATORY: Clear to auscultation bilaterally with no wheezing, crackles, rhonchi or stridor. CARDIOVASCULAR: Regular rate and rhythm with no murmurs, rubs or gallops. GASTROINTESTINAL: Bowel sounds present in all quadrants. Abdomen is soft and n ontender to palpation. MUSCULOSKELETAL: Full range of motion of all joints without discomfort. No pain with logroll of the hips. No tenderness to palpation through the lower lumbar spine. INTEGUMENTARY: With a female nurse automatic glove former present, examination shows notable induration of bilateral buttocks. There is an open wound with purulent drainage from the left inferomedial buttock. Edema goes down to the perianal region, with induration extending to the intergluteal fold and medial wall of the right buttock. No drainage is noted from the right buttock region. Patient does have tenderness to palpation of the perianal region. Digital rectal exam was not performed. HEMATOLOGIC: No ecchymosis or petechiae. PSYCHIATRIC: Positive affect. NEUROLOGIC: No focal neurologic deficits noted. Course Course Patient history and physical exam were performed. Nurses notes were reviewed. Vital signs were reviewed. The patient is mildly tachycardic, but not febrile or hypotensive. IV access was established, and labs were drawn. The patient was hydrated with a liter of normal saline, and administered IV morphine and Zofran for pain. Review of labs shows a notable leukocytosis with left shift and bandemia. Patient is mildly hyponatremic at 135. Glucose is also elevated at 270. The patient reports that she does not check her glucose levels at home. An order was placed for Zosyn 4.5 g IV infusion. The patient was happy with her pain control. COVID-19 test was also ordered and pending at the time of this dictation Findings were discussed with Dr. Lao, general surgeon who came to the emergency department for further evaluation. He will take the patient to the OR for surgical management. Please see his dictation for further treatment and final disposition. Administered Medications Discontinued Medications Sodium Chloride (Nss 1000ml) 1,000 mls @ 999 mls/hr IV .Q1H1M ONE Stop: 07/10/21 19:40 Last Infusion: 07/10/21 21:09 Dose: 0 mls/hr Documented by: [id number] Admin: 07/10/21 19:49 Dose: 999 mls/hr Documented by: [id number] Piperacillin Sod/Tazobactam Sod (Zosyn) 4.5 gm in 120 mls @ 240 mls/hr IV NOW ONE Stop: 07/10/21 21:33 Last Admin: 07/10/21 21:27 Dose: 240 mls/hr Documented by: [id number] Ioversol (Optiray 320 100ml) 91 ml IV ONCE ONE Stop: 07/10/21 20:16 Last Admin: 07/10/21 20:15 Dose: 91 ml Documented by: [id number] Morphine Sulfate (Morphine Sulfate 10 Mg/Ml Carp/Vial) 8 mg IV NOW STA Stop: 07/10/21 19:33 Last Admin: 07/10/21 19:47 Dose: 8 mg Documented by: [id number] Ondansetron HCl (Ondansetron Inj 2 Mg/Ml 2 Ml Vial) 4 mg IV NOW STA Stop: 07/10/21 19:33 Last Admin: 07/10/21 19:48 Dose: 4 mg Documented by: [id number] Medical Decision Making Medical Records Attestation: I reviewed the patient's medical records. Home Medications Current Medication List: was personally reviewed by me Laboratory Data Attestation: I reviewed the patient's lab results. Result diagrams: 07/10/21 18:35 07/10/21 18:35 Lab Results 07/10/21 07/10/21 Range/Units 18:35 18:35 WBC 17.97 H (4.8-10.8) K/uL RBC 4.78 (4.2-5.4) M/uL Hgb 14.1 (12.0-16.0) g/dL Hct 42.5 (37-47) % MCV 88.9 (80-100) fL MCH 29.5 (25-34) pg MCHC 33.2 (32-36) g/dL RDW Std Deviation 42.4 (36.4-46.3) fL RDW Coeff of Won 12.9 (11.5-14.5) % Plt Count 354 (130-400) K/uL MPV 9.4 (7.4-10.4) fL Immature Gran % (Auto) 0.3 % Neut % (Auto) 79.7 % Lymph % (Auto) 13.8 % Stanly % (Auto) 5.7 % Eos % (Auto) 0.3 % Baso % (Auto) 0.2 % Neut # (Auto) 14.34 H (1.4-6.5) K/uL Lymph # (Auto) 2.48 (1.2-3.4) K/uL Stanly # (Auto) 1.02 H (0.11-0.59) K/uL Eos # (Auto) 0.05 (0-0.5) K/uL Baso # (Auto) 0.03 (0-0.2) K/uL Immature Gran # (Auto) 0.05 H (0.00-0.02) K/uL Sodium 135 L (136-145) mmol/L Potassium 3.7 (3.5-5.1) mmol/L Chloride 103 (98-107) mmol/L Carbon Dioxide 23 (21-32) mmol/L Anion Gap 9 (3-11) BUN 16 (6-23) mg/dl Creatinine 0.80 (0.6-1.2) mg/dl Est Cr Clr Drug Dosing Not Reportable Est GFR ( Amer) 96.9 ml/min Est GFR (Non-Af Amer) 83.6 ml/min BUN/Creatinine Ratio 20.0 (10-20) Glucose 270 H (70-99) mg/dl Calcium 8.9 (8.5-10.1) mg/dl Total Bilirubin 0.3 (0.2-1.0) mg/dl AST 7 L (13-39) U/L ALT 8 (7-52) U/L Alkaline Phosphatase 101 (34-104) U/L Total Protein 7.9 (6.0-8.3) gm/dl Albumin 3.6 (3.4-5.0) gm/dl Globulin 4.3 H (2.5-4.0) gm/dl Albumin/Globulin Ratio 0.8 L (0.9-2) Imaging Data Attestation: I personally reviewed and interpreted this imaging study as follows: My Impression: My interpretation of the CT with IV contrast of the pelvis confirms bilateral buttock abscesses with a fistulous track extending around the inferior anal ring region. No additional deep pelvic fluid collections are noted. Radiologist report was also reviewed. Radiologist's Impression: Pelvis CT 07/10/21 18:40 CT SCAN OF THE PELVIS WITH IV CONTRAST CLINICAL HISTORY: Cellulitis of the buttock. COMPARISON STUDY: Pelvic CT dated 07/30/2017. TECHNIQUE: Following the IV administration of 91 cc of Optiray 320, CT scan of the pelvis is performed from the pelvic inlet to the proximal femora. Images are reviewed in the axial, sagittal, and coronal planes. IV contrast was administered without complication. A dose lowering technique was utilized adhering to the principles of ALARA. CT DOSE: 1669.57 mGy.cm FINDINGS: The bladder, uterus, and adnexa are normal as visualized. No free fluid is seen in the pelvis. Atherosclerotic calcification is noted in the distal abdominal aorta and iliac arteries. The vessels remain patent. There is mild diverticulosis of the sigmoid colon without CT evidence of acute diverticulitis. Imaged portions of the small bowel and colon show no evidence of obstruction. A mildly enlarged lymph node along the left pelvic sidewall measures up to 12 mm in short axis. No inguinal adenopathy is seen. Inflammatory change is present within the buttock bilaterally along the gluteal crease. There is a multiloculated fluid collection identified in the right buttock along the gluteal crease seen on axial image #152 - 180. This measures 4.5 x 4.1 x 5.6 cm in dimension and is typical in appearance for abscess. This approaches the inferior aspect of the anal ring at the 7:00 position. Additionally, there is a gas and fluid containing tract identified in the medial left buttock measuring at least 5 cm in length. This is best seen on axial image #154 and likely represents a fistula. This reaches the dermal surface in the inferior buttock on image #165. The largest pocket of fluid within this tract measures 1.6 cm. This approaches the inferior aspect of the anal ring at the 5:00 position. No perianal fluid collection is identified. The bony pelvis is intact. No lytic or blastic lesion is seen. Lumbosacral spondylosis is partially visualized. Mild sclerotic change is noted in the sacroiliac joints. Advanced sclerosis is seen in the pubic symphysis. There is generalized and symmetric atrophy of the regional musculature. IMPRESSION: 1. There is a fluid collection in the medial right buttock measuring up to 5.6 cm as detailed above. This is typical for abscess with surrounding cellulitis. 2. The fluid collection approaches the inferior aspect of the right anal ring at the 7:00 position. 3. A fistulous tract is seen extending from the inferior aspect of the anal ring at 5:00 and reaches the dermal surface in the inferior left buttock. The largest pocket of fluid within this tract measures up to 1.6 cm. 4. Additional findings as above. ACT 112: Negative or not required by law. Dictated: 07/10/2021 8:24 PM Transcribed: 07/10/2021 8:48 PM Swati [id number] [facility] Electronically signed by: Efren Nielsen M.D. 07/10/2021 8:49 PM Blood Pressure Blood Pressure Findings: Normal blood pressure MDM Narrative Patient presents to the emergency department for evaluation of ongoing and recurrent left buttock abscesses. She now reports development of a right buttock swelling and pain as well. She has noticed discomfort around the anus, especially with bowel movements. The patient presents today because of worsening pain and swelling. She also has had some drainage from the left buttock as well. CT imaging today is concerning for abscesses of bilateral buttocks, with a connecting anal rim fistula. CT imaging does not show any convincing evidence for Katie's gangrene. Patient does have a notable leukocytosis. She is afebrile. At this point, I do not suspect sepsis given her stable vital signs. General surgery evaluated the patient and will be taking the patient to the OR for surgical management. Impression & Plan Abscess of buttock, left, Abscess of buttock, right, Perianal fistula, History of diabetes mellitus Discharge Plan Visit Data Chief Complaint: Skin Problem Stated Complaint: POSS CYST ON BUTT, UNABLE TO SIT ED Provider: Santos Ann ED Midlevel Provider: Wilder Ann Discharge Problem: Abscess of buttock, left, Abscess of buttock, right, Perianal fistula, History of diabetes mellitus Forms Stand Alone Forms: [facility] Prescriptions Prescriptions: No Action celecoxib [Celebrex] 200 mg Capsule 200 mg PO DAILY RF: 0 atorvastatin 40 mg Tablet 40 mg PO DAILY RF: 0 aspirin [Aspir-81] 81 mg Tablet,Delayed Release (Dr/Ec) 81 mg PO DAILY RF: 0 lisinopril 5 mg Tablet 5 mg PO DAILY RF: 0 epinephrine [EpiPen] 0.3 mg/0.3 mL Auto-Injector 0.3 mg IM DIRECTED PRN (Reason: Allergic Reaction) RF: 0 Januvia 50 mg Tablet 50 mg PO DAILY RF: 0 Arnuity Ellipta 100 mcg/actuation Blister With Device 1 inh INHALATION DAILY RF: 0 cyclobenzaprine 5 mg tablet 5 - 10 mg PO Q8H PRN (Reason: muscle spasm) Qty: 20 RF: 0 Referrals Referrals: [facility],Medicine [Primary Care Provider] -
[2021-07-10 19:32] LABS: Alanine Aminotransferase 8 U/L (7-52); Albumin Globulin Ratio 0.8 (0.9-2); Albumin Level 3.6 gm/dl (3.4-5.0); Alkaline Phosphatase 101 U/L (34-104); Anion Gap 9 (3-11); Aspartate Aminotransferase 7 U/L (13-39); Bilirubin,Total 0.3 mg/dl (0.2-1.0); Blood Urea Nitrogen 16 mg/dl (6-23); Calcium 8.9 mg/dl (8.5-10.1); Carbon Dioxide 23 mmol/L (21-32); Chloride 103 mmol/L (98-107); Est GFR (African American) 96.9 ml/min; Est GFR (Non-African American) 83.6 ml/min; Globulin 4.3 gm/dl (2.5-4.0); Glucose 270 mg/dl (70-99); Potassium 3.7 mmol/L (3.5-5.1); Sodium 135 mmol/L (136-145); Total Protein 7.9 gm/dl (6.0-8.3)
[2021-07-10] MEDS ORDERED: MoRPHine SULFATE 10 MG/ML CARP/VIAL IV STA (19:32)
[2021-07-10] MEDS ORDERED: ONDANSETRON INJ 2 MG/ML 2 ML VIAL IV STA (19:32)
[2021-07-10] MEDS ORDERED: OPTIRAY 320 100ml IV ONE (20:15)
--- NOTE | 2021-07-10 20:50 | CT Scan Report ---
CT SCAN OF THE PELVIS WITH IV CONTRAST CLINICAL HISTORY: Cellulitis of the buttock. COMPARISON STUDY: Pelvic CT dated 07/30/2017. TECHNIQUE: Following the IV administration of 91 cc of Optiray 320, CT scan of the pelvis is performe d from the pelvic inlet to the proximal femora. Images are reviewed in the axial, sagittal, and coron al planes. IV contrast was administered without complication. A dose lowering technique was utilized adhering to the principles of ALARA. CT DOSE: 1669.57 mGy.cm FINDINGS: The bladder, uterus, and adnexa are normal as visualized. No free fluid is seen in the pelvis. Athero sclerotic calcification is noted in the distal abdominal aorta and iliac arteries. The vessels remain patent. There is mild diverticulosis of the sigmoid colon without CT evidence of acute diverticuliti s. Imaged portions of the small bowel and colon show no evidence of obstruction. A mildly enlarged ly mph node along the left pelvic sidewall measures up to 12 mm in short axis. No inguinal adenopathy is seen. Inflammatory change is present within the buttock bilaterally along the gluteal crease. There is a mu ltiloculated fluid collection identified in the right buttock along the gluteal crease seen on axial image #152 - 180. This measures 4.5 x 4.1 x 5.6 cm in dimension and is typical in appearance for absc ess. This approaches the inferior aspect of the anal ring at the 7:00 position. Additionally, there i s a gas and fluid containing tract identified in the medial left buttock measuring at least 5 cm in l ength. This is best seen on axial image #154 and likely represents a fistula. This reaches the dermal surface in the inferior buttock on image #165. The largest pocket of fluid within this tract measure s 1.6 cm. This approaches the inferior aspect of the anal ring at the 5:00 position. No perianal flui d collection is identified. The bony pelvis is intact. No lytic or blastic lesion is seen. Lumbosacral spondylosis is partially v isualized. Mild sclerotic change is noted in the sacroiliac joints. Advanced sclerosis is seen in the pubic symphysis. There is generalized and symmetric atrophy of the regional musculature. IMPRESSION: 1. There is a fluid collection in the medial right buttock measuring up to 5.6 cm as detailed above. This is typical for abscess with surrounding cellulitis. 2. The fluid collection approaches the inferior aspect of the right anal ring at the 7:00 position. 3. A fistulous tract is seen extending from the inferior aspect of the anal ring at 5:00 and reaches the dermal surface in the inferior left buttock. The largest pocket of fluid within this tract measur es up to 1.6 cm. 4. Additional findings as above. ACT 112: Negative or not required by law. Dictated: 07/10/2021 8:24 PM Transcribed: 07/10/2021 8:48 PM Swati [id number] [facility] Electronically signed by: Efren Nielsen M.D. 07/10/2021 8:49 PM
[2021-07-10] MEDS ORDERED: PIPERACILLIN/TAZOBACTAM 4.5 GM/120 ML BAG IV ONE (21:04)
[2021-07-10] MEDS ORDERED: PIPERACILL/TAZOBAC CONSULT ACTIVE PRN ×2 (21:04→23:48)
--- NOTE | 2021-07-10 21:35 | Surgery Consultation ---
Date of Consultation July 10, 2021 Assessment & Plan (1) Abscess of buttock, left: see below (2) Abscess of buttock, right: pt is a 55 year-old female who presents to ER with 4 days history perirectal pain, IMP: bilateral buttock abscess, plan, I recommend to do Incision and drainage bilateral buttock abscess, D/W benefits, risks and alternatives of the surgery, the risks - infection, bleeding, recurrence, sepsis, may need more surgery, pt understood, she agrees with the surgery, she signed informed consent, I answered all questions, pre-op antibiotic, History of Present Illness Reason for Consultation: bilateral buttock abscess History of Present Illness History of Present Illness General Chief complaint: Skin Problem Stated complaint: POSS CYST ON BUTT, UNABLE TO SIT Time Seen by Provider: 07/10/21 18:28 History of Present Illness Maximum Pain Intensity: 10 55-year-old female who presents to the emergency department with complaint of skin wounds on both buttocks. The patient reports that she has had a history of recurrent infections with drainage for over 3 years on the left buttock. Patient reports that she has followed up with her PCP with these infections, however reports that no one has referred her to a surgeon for I&D or wound debridement. The patient reports that over the past several days, she now is starting to get a wound on the right buttock as well. She reports notable swelling and pain. She denies any fevers, but has had chills. The patient is diabetic. She denies any abdominal pain, rectal pain or vaginal pain. The patient rates her discomfort a 10 out of 10. I ( Johana Lao MD ) got a call for consult bilateral buttock abscess, I reviewed pt's H/P, labs, CT scan with pt, Home Medications Medication Instructions Recorded Confirmed Type aspirin 81 mg tablet,delayed 81 mg PO DAILY 12/11/18 12/11/18 Hi story release (Aspir-) atorvastatin 40 mg tablet 40 mg PO DAILY 12/11/18 12/11/18 Histo ry celecoxib 200 mg capsule (Celebrex) 200 mg PO DAILY 12/11/1811/26 History cyclobenzaprine 5 mg tablet 5 - 10 mg PO Q8H PRN #20 tab 12/11/18 Rx epinephrine 0.3 mg/0.3 mL 0.3 mg IM DIRECTED PRN 12/11/18 12/11/18 History injection, auto-injector (EpiPen) fluticasone furoate 100 1 inh INHALATION DAILY 12/11/18 12/11/18 Hist ory mcg/actuation blister powder for inhalation (Arnuity Ellipta) lisinopril 5 mg tablet 5 mg PO DAILY 12/11/18 12/11/18 History sitagliptin 50 mg tablet (Januvia) 50 mg PO DAILY 12/11/1812/11 History Allergies Allergy/AdvReac Type Severity Reaction Status Date / Time ibuprofen AdvReac Intermediate RASH Verified 12/11/18 15:58 naproxen AdvReac IntermediateB rash Verified 12/11/18 15:58 Past Med/Surg History Medical History No pertinent past medical history Surgical History No pertinent past surgical history Social History(Updated 07/10/21 @ 19:31 by Wilder Ann) Smoking Status: Current every day smoker Tobacco Type: Cigarettes Preferred Language: Turkish marital status: current occupational status: employed Feels Safe at Home: Yes Review of Systems 10 system review was performed and was negative except for pertinent positives and negatives as indicated in history of present illness Allergies Allergy/AdvReac Type Severity Reaction Status Date / Time ibuprofen AdvReac Intermediate RASH Verified 12/11/18 15:58 naproxen AdvReac Intermediate rash Verified 12/11/18 15:58 Home Medications Medication Instructions Recorded Confirmed Type aspirin 81 mg tablet,delayed 81 mg PO DAILY 12/11/18 12/11/18 History release (Aspir-) atorvastatin 40 mg tablet 40 mg PO DAILY 12/11/18 12/11/18 History celecoxib 200 mg capsule (Celebrex) 200 mg PO DAILY 12/11/18 12/11/18 History cyclobenzaprine 5 mg tablet 5 - 10 mg PO Q8H PRN #20 tab 12/11/18 Rx epinephrine 0.3 mg/0.3 mL 0.3 mg IM DIRECTED PRN 12/11/18 12/11/18 History injection, auto-injector (EpiPen) fluticasone furoate 100 1 inh INHALATION DAILY 12/11/18 12/11/18 History mcg/actuation blister powder for inhalation (Arnuity Ellipta) lisinopril 5 mg tablet 5 mg PO DAILY 12/11/18 12/11/18 History sitagliptin 50 mg tablet (Januvia) 50 mg PO DAILY 12/11/18 12/11/18 History Patient History Medical History No pertinent past medical history Surgical History No pertinent past surgical history Social History (Updated 07/10/21 @ 19:31 by Wilder Ann) Smoking Status: Current every day smoker Tobacco Type: Cigarettes Preferred Language: Turkish marital status: current occupational status: employed Feels Safe at Home: Yes Review of Systems Constitutional: obesity Eyes: as per Subjective / HPI Respiratory: as per Subjective / HPI (dyspnea) Cardiovascular: Additional Comments: non-cardiac chest pain Gastrointestinal: rectal fistula, perirectal abscess, Genitourinary: as per Subjective / HPI Musculoskeletal: as per Subjective / HPI (knee pain, lumbar pain) Neurologic: as per Subjective / HPI Psychiatric: suicidal ideation Endocrine: as per Subjective / HPI Hematologic / Lymphatic: as per Subjective / HPI Physical Exam Constitutional: obesity Eyes: PERRL, conjunctivae normal, anicteric sclerae Neck: trachea midline, no thyromegaly Respiratory: normal respiratory effort, lungs clear to auscultation Cardiovascular: RRR, no murmur, no edema Gastrointestinal (Abdomen): Rectal Exam: + rectal tenderness (tenderness and redness at bilateral buttock,some drainage from left buttock) soft, NT, ND, Musculoskeletal: no cyanosis or clubbing, extremities motor strength 5/5 Neurologic: patellar DTR's 2+ bilat, sensation intact Psychiatric: A+Ox3, euthymic affect Results & Data ([facility]) Vital Signs (Past 12 Hours) Vital Signs Temp Pulse Resp BP Pulse Ox 07/10/21 18:18 36.4 C L 110 H 18 139/87 96 Laboratory Results Abnormal lab results 07/10/21 07/10/21 Range/Units 18:35 18:35 WBC 17.97 H (4.8-10.8) K/uL Neut # (Auto) 14.34 H (1.4-6.5) K/uL Starke # (Auto) 1.02 H (0.11-0.59) K/uL Immature Gran # (Auto) 0.05 H (0.00-0.02) K/uL Sodium 135 L (136-145) mmol/L Glucose 270 H (70-99) mg/dl AST 7 L (13-39) U/L Globulin 4.3 H (2.5-4.0) gm/dl Albumin/Globulin Ratio 0.8 L (0.9-2) Diagnostic Findings CT SCAN OF THE PELVIS WITH IV CONTRAST CLINICAL HISTORY: Cellulitis of the buttock. COMPARISON STUDY: Pelvic CT dated 07/30/2017. TECHNIQUE: Following the IV administration of 91 cc of Optiray 320, CT scan of the pelvis is performed from the pelvic inlet to the proximal femora. Images are reviewed in the axial, sagittal, and coronal planes. IV contrast was administered without complication. A dose lowering technique was utilized adhering to the principles of ALARA. CT DOSE: 1669.57 mGy.cm FINDINGS: The bladder, uterus, and adnexa are normal as visualized. No free fluid is seen in the pelvis. Atherosclerotic calcification is noted in the distal abdominal aorta and iliac arteries. The vessels remain patent. There is mild diverticulosis of the sigmoid colon without CT evidence of acute diverticulitis. Imaged portions of the small bowel and colon show no evidence of obstruction. A mildly enlarged lymph node along the left pelvic sidewall measures up to 12 mm in short axis. No inguinal adenopathy is seen. Inflammatory change is present within the buttock bilaterally along the gluteal crease. There is a multiloculated fluid collection identified in the right buttock along the gluteal crease seen on axial image #152 - 180. This measures 4.5 x 4.1 x 5.6 cm in dimension and is typical in appearance for abscess. This approaches the inferior aspect of the anal ring at the 7:00 position. Additionally, there is a gas and fluid containing tract identified in the medial left buttock measuring at least 5 cm in length. This is best seen on axial image #154 and likely represents a fistula. This reaches the dermal surface in the inferior buttock on image #165. The largest pocket of fluid within this tract measures 1.6 cm. This approaches the inferior aspect of the anal ring at the 5:00 position. No perianal fluid collection is identified. The bony pelvis is intact. No lytic or blastic lesion is seen. Lumbosacral spondylosis is partially visualized. Mild sclerotic change is noted in the sacroiliac joints. Advanced sclerosis is seen in the pubic symphysis. There is generalized and symmetric atrophy of the regional musculature. IMPRESSION: 1. There is a fluid collection in the medial right buttock measuring up to 5.6 cm as detailed above. This is typical for abscess with surrounding cellulitis. 2. The fluid collection approaches the inferior aspect of the right anal ring at the 7:00 position. 3. A fistulous tract is seen extending from the inferior aspect of the anal ring at 5:00 and reaches the dermal surface in the inferior left buttock. The largest pocket of fluid within this tract measures up to 1.6 cm. 4. Additional findings as above.
--- NOTE | 2021-07-10 21:40 | History & Physical Bridge Note ---
Date of Service July 10, 2021 History & Physical Bridge Note I have examined the patient, reviewed the History & Physical and in the interval since the performance of the History & Physical I have noted the following changes of clinical significance: no changes noted
[2021-07-10] MEDS ORDERED: ePHEDrine sulfate 50 MG/ML AMP IV PRN (21:45)
[2021-07-10] MEDS ORDERED: ONDANSETRON INJ 2 MG/ML 2 ML VIAL IV PRN (21:45)
[2021-07-10] MEDS ORDERED: fentaNYL citrate 100 MCG/2 ML VIAL IV PRN (21:45)
[2021-07-10] MEDS ORDERED: PROMETHAZINE HCL 6.25 MG in SODIUM CHLORIDE 0.9% 50 ML IV PRN (21:45)
[2021-07-10] MEDS ORDERED: ATROPINE SULFATE 0.1 MG/ML 10ML SYR IV PRN (21:45)
[2021-07-10] MEDS ORDERED: LIDOCAINE 1% LOCAL 20 ML VIAL ONE (22:19)
[2021-07-10] MEDS ORDERED: BACITRACIN OINT 15 GM TUBE ONE (22:19)
[2021-07-10] MEDS ORDERED: BUPIVACAINE 0.5 % 5 MG/1 ML MPF 30ML VIAL ONE (22:19)
[2021-07-10] MEDS ORDERED: fentaNYL citrate 100 MCG/2 ML VIAL ONE (22:20)
[2021-07-10] MEDS ORDERED: PROPOFOL IV EMULSION 10 MG/ML 20 ML VIAL IV ONE (22:44)
[2021-07-10] MEDS ORDERED: SUCCINYLCHOLINE CHLORIDE 20 MG/ML 10 ML VIAL IV ONE (22:44)
[2021-07-10] MEDS ORDERED: ONDANSETRON INJ 2 MG/ML 2 ML VIAL ONE (22:44)
[2021-07-10] MEDS ORDERED: LIDOCAINE 2% 2 ML VIAL/AMP(20MG/ML) INFIL ONE (22:44)
[2021-07-10] MEDS ORDERED: DEXAMETHASONE SOD INJ 4 MG/ML VIAL ONE (22:44)
--- NOTE | 2021-07-10 22:49 | Anesthesiology Consultation ---
Date of Service July 10, 2021 Assessment & Plan Chart Review Chart Review: Acceptable Risk for Surgery and Patient NOT seen in Pre Admission Testing Consults Requested none ASA [id number] Proposed Anesthesia Anesthesia Type: General Risk / Benefits Reviewed With: PT / POA / Parent / Guardian, Accepts Plan and Informed Consent Obtained History Surgery Operation Date: 07/10/21 22:30 Proposed Procedures p Rectal Surgery - Johana Lao MD Height/Weight Height: 5 ft 3 in Weight: 0 g Allergies Allergy/AdvReac Type Severity Reaction Status Date / Time ibuprofen AdvReac Intermediate RASH Verified 12/11/18 15:58 naproxen AdvReac Intermediate rash Verified 12/11/18 15:58 Medications Home Medications Medication Instructions Recorded Confirmed Last Taken aspirin 81 mg tablet,delayed 81 mg PO DAILY 12/11/18 12/11/18 12/11/18 release (Aspir-) atorvastatin 40 mg tablet 40 mg PO DAILY 12/11/18 12/11/18 12/10/18 celecoxib 200 mg capsule (Celebrex) 200 mg PO DAILY 12/11/18 12/11/18 12/11/18 cyclobenzaprine 5 mg tablet 5 - 10 mg PO Q8H PRN #20 tab 12/11/18 Unknown epinephrine 0.3 mg/0.3 mL 0.3 mg IM DIRECTED PRN 12/11/18 12/11/18 Unknown injection, auto-injector (EpiPen) fluticasone furoate 100 1 inh INHALATION DAILY 12/11/18 12/11/18 12/11/18 mcg/actuation blister powder for inhalation (Arnuity Ellipta) lisinopril 5 mg tablet 5 mg PO DAILY 12/11/18 12/11/18 12/11/18 sitagliptin 50 mg tablet (Januvia) 50 mg PO DAILY 12/11/18 12/11/18 12/11/18 NPO Date Last Intake of Fluids: 07/10/21 Time Last Intake of Fluids: 19:00 Date Last Intake of Solids: 07/09/21 Last Intake of Solids Comment: Nothing to eat today Past Medical History Medical History No pertinent past medical history Exercise / Class Metabolic Activity II 4-5 Yardwork/Stairs/Walk up hill Past Surgical History Surgical History No pertinent past surgical history Past Anesthesia History No Hx of Anesthesia Complications and No Family Hx of Anesthesia Complications History of PONV No Hx of PONV and No Hx of Motion Sickness Social History Smoking Status: Current every day smoker Physical Exam Vital Signs Last Vital Signs Temp 36.4 C L 07/10/21 18:18 Pulse 110 H 07/10/21 18:18 Resp 18 07/10/21 18:18 BP 139/87 07/10/21 18:18 Pulse Ox 96 07/10/21 18:18 Constitutional + morbidly obese ENMT Mouth: + dentures Thyromental Distance: > or= 3.5 Finger Breadths Mallampati Class: II Neck normal visual inspection Respiratory normal respiratory effort Auscultation: lungs clear to auscultation bilaterally Cardiovascular Rate/Rhythm: regular rate and regular rhythm Psychiatric Orientation: alert Testing Laboratory Results 07/10/21 18:35 07/10/21 18:35
--- NOTE | 2021-07-10 23:04 | Post Operative Brief Note ---
Immediate Post Op Note v1 Date of Surgery July 10, 2021 Pre & Post Diagnosis Operation Date: 07/10/21 22:30 Pre-Op Diagnosis: Bilateral Buttock Abscesses Post-Op Diagnosis: Bilateral Buttock Abscesses I identified the patient and participated in the time-out.: Yes Procedure Operation Date: 07/10/21 22:30 Actual Procedures p Incision and Drainage Bilateral Buttock Abscess - Johana Lao MD Surgeon Johana Lao MD Dumbwaiter Operator surgical specialist Estimated Blood Loss 20 Findings Consistent with Post-Op Diagnosis bilateral buttock abscess Fluids 1000ml Specimens wound culture sent Drains [place] Drain (07/01", one on each side) Complications none Disposition Accompanied Patient To Recovery: Yes
[2021-07-10 23:17] LABS: Pregnancy Test, Urine Negative (Negative)
--- NOTE | 2021-07-10 23:47 | Anesthesiology Progress Note ---
Date of Service July 10, 2021 Anesthesia Post Procedure Vital Signs Vital Signs: Temp Pulse Pulse Resp BP BP Pulse Ox 07/10/21 23:38 36.7 C 81 20 133/50 L 98 07/10/21 23:30 84 20 138/66 97 07/10/21 23:20 83 16 128/58 L 97 07/10/21 23:14 36.5 C 88 14 146/79 H 97 07/10/21 18:18 36.4 C L 110 H 18 139/87 96 Transfer of Care Handoff Completed per policy Notes Mental Status: alert / awake / arousable Patient Amnestic to Procedure: Yes Nausea / Vomiting: adequately controlled Pain: adequately controlled Airway Patency, RR, SpO2: stable & adequate BP & HR: stable & adequate Hydration State: stable & adequate Anesthetic Complications: no major complications apparent
[2021-07-10] MEDS ORDERED: EPINEPHrine ADULT AUTO-INJECT 0.3 MG SYR IM PRN (23:48)
[2021-07-10] MEDS ORDERED: HYDROmorphone INJ 1 MG/ML SYRINGE IV PRN (23:48)
[2021-07-10] MEDS ORDERED: CYCLOBENZAPRINE HCL 5 MG TAB PO PRN (23:48)
[2021-07-11] MEDS ORDERED: DAPTOmycin 300 MG in SYRINGE 0 ML IV SCH
[2021-07-11] MEDS ORDERED: GLUCOSE 40% GEL 15 GM TUBE PO PRN (00:03)
[2021-07-11] MEDS ORDERED: CARBOHYDRATES FOR HYPOGLYCEMIA PO PRN (00:03)
[2021-07-11] MEDS ORDERED: GLUCAGON FOR INJ 1 MG VIAL SQ PRN (00:03)
[2021-07-11] MEDS ORDERED: DEXTROSE 50% 50 ML SYRINGE IV PRN (00:03)
[2021-07-11] MEDS ORDERED: INSULIN GLARGINE SOLOSTAR 100 UNITS/ML 3 ML PEN SC STA (00:03)
[2021-07-11] MEDS ORDERED: GLUCOSE 10 TABS/TUBE PO PRN (00:03)
[2021-07-11 00:10] LABS: Basophils # (auto) 0.01 K/uL (0-0.2); Basophils % (auto) 0.1 %; Eosinophils % (auto) 0.6 %; Hemoglobin 12.6 g/dL (12.0-16.0); Immature Granulocytes # (auto) 0.07 K/uL (0.00-0.02); Immature Granulocytes % (auto) 0.4 %; Lymphocytes # (auto) 1.88 K/uL (1.2-3.4); Lymphocytes % (auto) 10.8 %; Mean Corpuscular Hemoglobin 29.5 pg (25-34); Mean Corpuscular Hgb Conc 33.2 g/dL (32-36); Mean Platelet Volume 9.1 fL (7.4-10.4); Monocytes # (auto) 1.25 K/uL (0.11-0.59); Monocytes % (auto) 7.2 %; Neutrophils # (auto) 14.09 K/uL (1.4-6.5); Neutrophils % (auto) 80.9 %; Platelet Count 296 K/uL (130-400); RDW Coefficient of Variation 12.9 % (11.5-14.5); RDW Standard Deviation 41.7 fL (36.4-46.3); Red Blood Count 4.27 M/uL (4.2-5.4)
--- NOTE | 2021-07-11 00:13 | Hospitalist Consultation ---
Date of Consultation July 11, 2021 Assessment & Plan (1) Sepsis: Final Assessment and Recommendations as follows : Sepsis secondary to bilateral buttock abscesses/anal fistula status post I/D concern for rectovaginal fistula given patient account hypertension, stable hyperlipidemia on statin Rx COPD, pulmonary status at baseline DM2 on oral medications, BSGs elevated, suboptimal control as of recent hemoglobin A1c of 7.30 December 2020 ongoing tobacco abuse Follow abscess CS, Zosyn for now Gynecology consult for possible rectovaginal fistula if okay with General Surgery Basal insulin, ISS BG goal 1 10-1 40, carb count coverage, update hemoglobin A1c Nicotine patch as needed DVT prophylaxis SCDs as per postop orders. Recommend pharmacologic anticoagulation with Lovenox 40 mg subcutaneous daily once bleeding risk is deemed to be minimal and negligible pending postop Surgery evaluation. Thank you very much for this consultation. Dr. Maravilla will follow patient's progress. Text document was generated using [employer] voice recognition software. It may contain grammatical or spelling errors. Kindly contact undersigned for clarification of any documentation item in question. History of Present Illness Reason for Consultation: Medical management Requesting Physician: Dr. Lao Attending Physician: Johana Lao MD History of Present Illness PCP : [facility] History obtained from patient and records. Medical history significant for hypertension, hyperlipidemia, COPD, DM2 on oral medications, ongoing tobacco abuse. Patient has had a cyst on her left buttock, coming and going in the last 3 years. Spontaneous rupture with purulent drainage from time to time without antibiotic Rx or consultations. Last month, patient noted consulted PCP's office with note of drainage through her vagina. Patient prescribed Bactrim Rx which did not totally relieve symptoms. Last week, patient noted a painful enlarging cyst on the right buttock. Rectal pain causing constipation. No fever, no chills. Patient consulted ER yesterday for worsening symptoms. Zosyn administered for pelvic abscess. Patient underwent emergent incision and drainage of bilateral buttock abscesses. Patient currently admitted under General Surgery. Medical History as above Surgical History : Buttock abscess drainage, BTL, tonsillectomy, right ankle surgery, jaw fracture surgery Family History : DM, heart disease, esophageal cancer Personal/Social history : 1 pack daily, occasional EtOH intake, caregiver Allergies Allergy/AdvReac Type Severity Reaction Status Date / Time ibuprofen AdvReac Intermediate RASH Verified 12/11/18 15:58 naproxen AdvReac Intermediate rash Verified 12/11/18 15:58 Home Medications Medication Instructions Recorded Confirmed Type atorvastatin 40 mg tablet 40 mg PO DAILY 12/11/18 12/11/18 History fluticasone furoate 100 1 inh INHALATION DAILY 12/11/18 12/11/18 History mcg/actuation blister powder for inhalation (Arnuity Ellipta) lisinopril 5 mg tablet 5 mg PO DAILY 12/11/18 12/11/18 History sitagliptin 50 mg tablet (Januvia) 50 mg PO DAILY 12/11/18 12/11/18 History Patient History Medical History No pertinent past medical history Surgical History No pertinent past surgical history Social History (Updated 07/10/21 @ 19:31 by Wilder Ann) Smoking Status: Current every day smoker Tobacco Type: Cigarettes Do You Dip or Chew Tobacco: No; Tobacco Cessation Education Requested by Patient: No Hx Alcohol Use: No Hx Substance Use: No Preferred Language: Bengali Communication Ability: Effective Explosive Ordnance Disposal Specialist Required: No Beliefs That Will Affect Care: None marital status: Current Living Situation: Spouse Current Living Situation Comment: current occupational status: employed Other Information That Helps Us Care for You: No Feels Safe at Home: Yes Safety Concerns: Feels Safe At This Time Assistive Devices: Denture - Upper and Glasses Review of Systems Review of Systems: As per HPI, all 10 systems reviewed, all other ROS negative Physical Exam Physical Exam: GENERAL: Comfortable, pleasant, morbidly obese, no respiratory distress SKIN: Normal color, warm HEENT: [place] palpebral conjunctivae, no ptosis, dry buccal mucosa NECK : Supple, short neck no tenderness CHEST : Decreased breath sounds, no tenderness HEART : RRR, no obvious murmurs ABDOMEN: Some distention, nontender EXTREMITIES : Minimal LE swelling, no LE tenderness, no other conspicuous deformities noted NEUROLOGIC : Coherent, no facial asymmetry, no other gross focality Results & Data Results & Data ([facility]) Vital Signs (Past 12 Hours) Vital Signs Temp Pulse Pulse Resp BP BP Pulse Ox 07/10/21 23:38 36.7 C 81 20 133/50 L 98 07/10/21 23:30 84 20 138/66 97 07/10/21 23:20 83 16 128/58 L 97 07/10/21 23:14 36.5 C 88 14 146/79 H 97 07/10/21 18:18 36.4 C L 110 H 18 139/87 96 Laboratory Results Laboratory Results WBC 17.40 K/uL (4.8-10.8) H 07/11/21 00:02 RBC 4.27 M/uL (4.2-5.4) 07/11/21 00:02 Hgb 12.6 g/dL (12.0-16.0) 07/11/21 00:02 Hct 38.0 % (37-47) 07/11/21 00:02 MCV 89.0 fL (80-100) 07/11/21 00:02 MCH 29.5 pg (25-34) 07/11/21 00:02 MCHC 33.2 g/dL (32-36) 07/11/21 00:02 RDW Std Deviation 41.7 fL (36.4-46.3) 07/11/21 00:02 RDW Coeff of Won 12.9 % (11.5-14.5) 07/11/21 00:02 Plt Count 296 K/uL (130-400) 07/11/21 00:02 MPV 9.1 fL (7.4-10.4) 07/11/21 00:02 Immature Gran % (Auto) 0.4 % 07/11/21 00:02 Neut % (Auto) 80.9 % 07/11/21 00:02 Lymph % (Auto) 10.8 % 07/11/21 00:02 [place] % (Auto) 7.2 % 07/11/21 00:02 Eos % (Auto) 0.6 % 07/11/21 00:02 Baso % (Auto) 0.1 % 07/11/21 00:02 Neut # (Auto) 14.09 K/uL (1.4-6.5) H 07/11/21 00:02 Lymph # (Auto) 1.88 K/uL (1.2-3.4) 07/11/21 00:02 Alpine # (Auto) 1.25 K/uL (0.11-0.59) H 07/11/21 00:02 Eos # (Auto) 0.10 K/uL (0-0.5) 07/11/21 00:02 Baso # (Auto) 0.01 K/uL (0-0.2) 07/11/21 00:02 Immature Gran # (Auto) 0.07 K/uL (0.00-0.02) H 07/11/21 00:02 Sodium 135 mmol/L (136-145) L 07/10/21 18:35 Potassium 3.7 mmol/L (3.5-5.1) 07/10/21 18:35 Chloride 103 mmol/L (98-107) 07/10/21 18:35 Carbon Dioxide 23 mmol/L (21-32) 07/10/21 18:35 Anion Gap 9 (3-11) 07/10/21 18:35 BUN 16 mg/dl (6-23) 07/10/21 18:35 Creatinine 0.80 mg/dl (0.6-1.2) 07/10/21 18:35 Est Cr Clr Drug Dosing Not Reportable 07/10/21 18:35 Est GFR ( Amer) 96.9 ml/min 07/10/21 18:35 Est GFR (Non-Af Amer) 83.6 ml/min 07/10/21 18:35 BUN/Creatinine Ratio 20.0 (10-20) 07/10/21 18:35 Glucose 270 mg/dl (70-99) H 07/10/21 18:35 POC Glucose 189 mg/dl (70-99) H 07/10/21 23:15 Calcium 8.9 mg/dl (8.5-10.1) 07/10/21 18:35 Total Bilirubin 0.3 mg/dl (0.2-1.0) 07/10/21 18:35 AST 7 U/L (13-39) L 07/10/21 18:35 ALT 8 U/L (7-52) 07/10/21 18:35 Alkaline Phosphatase 101 U/L (34-104) 07/10/21 18:35 Total Protein 7.9 gm/dl (6.0-8.3) 07/10/21 18:35 Albumin 3.6 gm/dl (3.4-5.0) 07/10/21 18:35 Globulin 4.3 gm/dl (2.5-4.0) H 07/10/21 18:35 Albumin/Globulin Ratio 0.8 (0.9-2) L 07/10/21 18:35 Urine Test Negative (Negative) 07/10/21 23:14 POC Ur Test Cancelled 07/10/21 21:45 SARS-CoV-2, RNA, NAAT NEGATIVE (NEGATIVE) 07/10/21 21:[address] 07/10/21 18:40 CT SCAN OF THE PELVIS WITH IV CONTRAST CLINICAL HISTORY: Cellulitis of the buttock. COMPARISON STUDY: Pelvic CT dated 07/30/2017. TECHNIQUE: Following the IV administration of 91 cc of Optiray 320, CT scan of the pelvis is performed from the pelvic inlet to the proximal femora. Images are reviewed in the axial, sagittal, and coronal planes. IV contrast was administered without complication. A dose lowering technique was utilized adhering to the principles of ALARA. CT DOSE: 1669.57 mGy.cm FINDINGS: The bladder, uterus, and adnexa are normal as visualized. No free fluid is seen in the pelvis. Atherosclerotic calcification is noted in the distal abdominal aorta and iliac arteries. The vessels remain patent. There is mild diverticulosis of the sigmoid colon without CT evidence of acute diverticulitis. Imaged portions of the small bowel and colon show no evidence of obstruction. A mildly enlarged lymph node along the left pelvic sidewall measures up to 12 mm in short axis. No inguinal adenopathy is seen. Inflammatory change is present within the buttock bilaterally along the gluteal crease. There is a multiloculated fluid collection identified in the right buttock along the gluteal crease seen on axial image #152 - 180. This measures 4.5 x 4.1 x 5.6 cm in dimension and is typical in appearance for abscess. This approaches the inferior aspect of the anal ring at the 7:00 position. Additionally, there is a gas and fluid containing tract identified in the medial left buttock measuring at least 5 cm in length. This is best seen on axial image #154 and likely represents a fistula. This reaches the dermal surface in the inferior buttock on image #165. The largest pocket of fluid within this tract measures 1.6 cm. This approaches the inferior aspect of the anal ring at the 5:00 position. No perianal fluid collection is identified. The bony pelvis is intact. No lytic or blastic lesion is seen. Lumbosacral spondylosis is partially visualized. Mild sclerotic change is noted in the sacroiliac joints. Advanced sclerosis is seen in the pubic symphysis. There is generalized and symmetric atrophy of the regional musculature. IMPRESSION: 1. There is a fluid collection in the medial right buttock measuring up to 5.6 cm as detailed above. This is typical for abscess with surrounding cellulitis. 2. The fluid collection approaches the inferior aspect of the right anal ring at the 7:00 position. 3. A fistulous tract is seen extending from the inferior aspect of the anal ring at 5:00 and reaches the dermal surface in the inferior left buttock. The largest pocket of fluid within this tract measures up to 1.6 cm. 4. Additional findings as above. ACT 112: Negative or not required by law. Dictated: 07/10/2021 8:24 PM Transcribed: 07/10/2021 8:48 PM Swati [id number] [email or web address] Electronically signed by: Efren Nielsen M.D. 07/10/2021 8:49 PM
[2021-07-11] MEDS: LACTATED RINGER'S 1,000 ML IV SCH ×3 (00:21→23:25)
[2021-07-11] MEDS: INSULIN ASPART PER UNIT SC SCH ×5 (01:09→20:54)
--- NOTE | 2021-07-11 02:11 | Operative Report (OR) ---
DATE OF SURGERY: 07/10/2021. PREOPERATIVE DIAGNOSIS: Bilateral buttock abscess. POSTOPERATIVE DIAGNOSIS: Bilateral buttock abscess. OPERATION: Incision and drainage of bilateral buttock abscess. SURGEON: Johana Lao MD ANESTHESIA: General. ESTIMATED BLOOD LOSS: About 20 mL. FINDINGS: Bilateral buttock abscess and Sesar drain on each side. COMPLICATIONS: None. INDICATIONS FOR THE PROCEDURE: This is a 55-year-old female with diabetes history, who presented to the ED with a 4-day history of rectal pain and the patient had a CT scan diagnosis of bilateral buttock abscess. I recommended to do the incision and drainage of bilateral buttock abscess. I did talk to the patient about the benefits, risks, alternate procedures. I indicated the risks may include, but not limited to, such as bleeding, infection, recurrence, sepsis, may need more procedure, the patient understands. She signed informed consent and I answered all questions. DETAILS OF PROCEDURE: After we identified the patient and verified the procedure, we brought in the patient to the OR, put the patient in the lithotomy position. The patient received SCDs on bilateral legs to prevent DVT. Also, the patient received 3.375 grams Zosyn IV for prophylactic antibiotic and the patient received general anesthesia without difficulty. The rectal area was prepped and draped in routine sterile fashion after timeout. Then we found the patient had bilateral buttock abscess and we made an about 3 cm incision on the right side buttock area. There was some pus that came out and we sent a wound culture. Once we cleared up the abscess, the abscess was pretty close to the rectal area. We did not find any connect to inside the rectum. At this moment, we put one Sesar drainage. I used 3-0 nylon to fix the Sesar on the skin and then we packed the wound by using iodoform 0.5-inch. Hemostasis was obtained. Then we moved on to the left side buttock. I made about a 3 cm incision and there was pus that came out immediately. We sent a wound culture and once we cleared up the large abscess, again abscess near the rectal area, and used normal saline to flush the abscess. Then put one Sesar drainage and I used 3-0 nylon to fix the Sesar on the skin. I used iodoform 0.5-inch for packing the wound. Hemostasis was obtained. Then I injected the local anesthesia by using 1% lidocaine mixed with 0.5% Marcaine on the two sides of the incision around the incision each one, and again hemostasis was obtained. Then, we put the dressing on. The patient tolerated the procedure well. All the instrument, needle and sponge counts were correct x2 at the end of the case. The patient was transferred to recovery room in stable condition. After the procedure, I did talk to the patient about the OR finding and the procedure we did, the patient understands. Job ID: [id number] MTDD
[2021-07-11] MEDS: PIPERACILLIN/TAZOBACTAM 4.5 GM in DEXTROSE 5% 100 ML IV SCH ×3 (04:58→20:53)
[2021-07-11 05:27] LABS: Basophils # (auto) 0.01 K/uL (0-0.2); Basophils % (auto) 0.1 %; Hematocrit (blood only) 39.8 % (37-47); Hemoglobin 13.4 g/dL (12.0-16.0); Immature Granulocytes # (auto) 0.05 K/uL (0.00-0.02); Immature Granulocytes % (auto) 0.3 %; Lymphocytes # (auto) 1.44 K/uL (1.2-3.4); Lymphocytes % (auto) 8.4 %; Mean Corpuscular Hemoglobin 29.9 pg (25-34); Mean Corpuscular Hgb Conc 33.7 g/dL (32-36); Mean Corpuscular Volume 88.8 fL (80-100); Mean Platelet Volume 9.2 fL (7.4-10.4); Monocytes # (auto) 0.76 K/uL (0.11-0.59); Monocytes % (auto) 4.4 %; Neutrophils # (auto) 14.94 K/uL (1.4-6.5); Neutrophils % (auto) 86.8 %; Platelet Count 307 K/uL (130-400); RDW Coefficient of Variation 12.8 % (11.5-14.5); RDW Standard Deviation 41.6 fL (36.4-46.3); Red Blood Count 4.48 M/uL (4.2-5.4)
[2021-07-11 05:47] LABS: Albumin Globulin Ratio 0.9 (0.9-2); Albumin Level 3.2 gm/dl (3.4-5.0); BUN Creatinine Ratio 23.1 (10-20); Bilirubin,Total 0.3 mg/dl (0.2-1.0); Calcium 8.3 mg/dl (8.5-10.1); Creatinine Clr Calc Pharmacy 146.4 ml/min; Est GFR (African American) 125.5 ml/min; Est GFR (Non-African American) 108.3 ml/min; Globulin 3.6 gm/dl (2.5-4.0); Potassium 4.4 mmol/L (3.5-5.1); Total Protein 6.8 gm/dl (6.0-8.3)
[2021-07-11 06:07] LABS: Estimated Average Glucose 169 mg/dl; Hemoglobin A1C 7.5 % (4.5-5.6)
--- NOTE | 2021-07-11 08:22 | Surgery Progress Note ---
Date of Service July 11, 2021 Assessment & Plan (1) Abscess of buttock, left: Plan: see below (2) Abscess of buttock, right: Plan: pt is a 55 year-old female who presents to ER with 4 days history perirectal pain, IMP: bilateral buttock abscess, plan, I recommend to do Incision and drainage bilateral buttock abscess, D/W benefits, risks and alternatives of the surgery, the risks - infection, bleeding, recurrence, sepsis, may need more surgery, pt understood, she agrees with the surgery, she signed informed consent, I answered all questions, pre-op antibiotic, 07/11/2021 8:19AM F/U S/P I/D bilateral buttock abscess, POD 1 doing better, continue iv antibiotic treatment, consult hospitalist for manage DM, consult wound care nurse for dressing change repeat labs in morning, 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, Thanks, Admission and Anticipated Discharge Date Admission Date: July 10, 2021 Subjective F/U S/P I/D bilateral buttock abscess, POD 1 pt feels better, less pain, no fever, wound culture pending Review of Systems Constitutional: obesity Eyes: as per Subjective / HPI Respiratory: as per Subjective / HPI (dyspnea) Cardiovascular: Additional Comments: non-cardiac chest pain Gastrointestinal: rectal fistula, perirectal abscess, Genitourinary: as per Subjective / HPI Musculoskeletal: as per Subjective / HPI (knee pain, lumbar pain) Neurologic: as per Subjective / HPI Psychiatric: suicidal ideation Endocrine: as per Subjective / HPI Hematologic / Lymphatic: as per Subjective / HPI Physical Exam Eyes: PERRL, conjunctivae normal, anicteric sclerae Neck: trachea midline, no thyromegaly Respiratory: normal respiratory effort, lungs clear to auscultation Cardiovascular: RRR, no murmur, no edema Gastrointestinal (Abdomen): Rectal Exam: + rectal tenderness (emelyn drainage intact, less redness, ) Musculoskeletal: no cyanosis or clubbing, extremities motor strength 5/5 Neurologic: patellar DTR's 2+ bilat, sensation intact Psychiatric: A+Ox3, euthymic affect Results & Data ([facility]) Vital Signs (Past 12 Hours) Vital Signs Temp Pulse Pulse Resp BP Pulse Ox 07/11/21 07:23 36.4 C L 65 16 109/65 96 07/11/21 02:47 36.9 C 71 16 121/72 94 07/11/21 01:45 36.7 C 73 16 146/77 H 96 07/11/21 00:47 36.4 C L 74 16 138/76 94 07/11/21 00:26 36.5 C 75 16 133/79 96 07/10/21 23:45 36.4 C L 78 16 124/69 99 07/10/21 23:38 36.7 C 81 20 133/50 L 98 07/10/21 23:30 84 20 138/66 97 07/10/21 23:20 83 16 128/58 L 97 07/10/21 23:14 36.5 C 88 14 146/79 H 97 Laboratory Results Abnormal lab results 07/10/21 07/10/21 07/10/21 Range/Units 18:35 18:35 23:15 WBC 17.97 H (4.8-10.8) K/uL Neut # (Auto) 14.34 H (1.4-6.5) K/uL [place] # (Auto) 1.02 H (0.11-0.59) K/uL Immature Gran # (Auto) 0.05 H (0.00-0.02) K/uL Sodium 135 L (136-145) mmol/L Creatinine (0.6-1.2) mg/dl BUN/Creatinine Ratio (10-20) Glucose 270 H (70-99) mg/dl POC Glucose 189 H (70-99) mg/dl Hemoglobin A1c (4.5-5.6) % Calcium (8.5-10.1) mg/dl AST 7 L (13-39) U/L Albumin (3.4-5.0) gm/dl Globulin 4.3 H (2.5-4.0) gm/dl Albumin/Globulin Ratio 0.8 L (0.9-2) 07/11/21 07/11/21 07/11/21 Range/Units 00:02 00:02 00:37 WBC 17.40 H (4.8-10.8) K/uL Neut # (Auto) 14.09 H (1.4-6.5) K/uL [place] # (Auto) 1.25 H (0.11-0.59) K/uL Immature Gran # (Auto) 0.07 H (0.00-0.02) K/uL Sodium (136-145) mmol/L Creatinine (0.6-1.2) mg/dl BUN/Creatinine Ratio (10-20) Glucose (70-99) mg/dl POC Glucose 226 H (70-99) mg/dl Hemoglobin A1c 7.5 H (4.5-5.6) % Calcium (8.5-10.1) mg/dl AST (13-39) U/L Albumin (3.4-5.0) gm/dl Globulin (2.5-4.0) gm/dl Albumin/Globulin Ratio (0.9-2) 07/11/21 07/11/21 07/11/21 Range/Units 05:18 05:18 07:51 WBC 17.20 H (4.8-10.8) K/uL Neut # (Auto) 14.94 H (1.4-6.5) K/uL [place] # (Auto) 0.76 H (0.11-0.59) K/uL Immature Gran # (Auto) 0.05 H (0.00-0.02) K/uL Sodium 134 L (136-145) mmol/L Creatinine 0.52 L (0.6-1.2) mg/dl BUN/Creatinine Ratio 23.1 H (10-20) Glucose 263 H (70-99) mg/dl POC Glucose 227 H (70-99) mg/dl Hemoglobin A1c (4.5-5.6) % Calcium 8.3 L (8.5-10.1) mg/dl AST 6 L (13-39) U/L Albumin 3.2 L (3.4-5.0) gm/dl Globulin (2.5-4.0) gm/dl Albumin/Globulin Ratio (0.9-2)
[2021-07-11] MEDS ORDERED: ASPIRIN 81 MG ECTAB PO SCH (09:00)
[2021-07-11] MEDS ORDERED: CeleBREX 200 MG CAP PO SCH (09:00)
[2021-07-11] MEDS ORDERED: INSULIN GLARGINE SOLOSTAR 100 UNITS/ML 3 ML PEN SC SCH ×3 (09:00→20:30)
[2021-07-11] MEDS ORDERED: SITagliptin PHOSPHATE 25 MG TAB PO SCH (09:00)
[2021-07-11] MEDS ORDERED: ATORVASTATIN 40 MG TAB PO SCH (09:00)
[2021-07-11] MEDS ORDERED: ACETAMINOPHEN 325 MG TAB PO PRN (09:17)
[2021-07-11] MEDS: lisinopril 5 MG TAB PO SCH (09:22)
[2021-07-11] MEDS: FLUTICASONE FUROATE 100MCG 14 PUFFS/INHALER INH SCH (09:23)
[2021-07-11] MEDS: ATORVASTATIN 40 MG TAB PO SCH (09:23)
[2021-07-11] MEDS: ENOXAPARIN INJ 40 MG/0.4 ML SYR SQ SCH (10:45)
[2021-07-11] MEDS: DAPTOmycin 450 MG in SYRINGE 0 ML IV SCH (11:03)
--- NOTE | 2021-07-11 15:49 | Hospitalist Progress Note ---
Date of Service July 11, 2021 Assessment & Plan (1) Sepsis: Plan: Sepsis Bilateral buttock abscesses/anal fistula ? 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 on rectovaginal fistula Hyponatremia Sodium 134 today monitor Hypertension Continue lisinopril Monitor Hyperlipidemia on statin COPD, No signs of exacerbation DM II HbA1C: 7.5 Monitor BGs Hold oral medication Continue insulin therapy Tobacco disorder Counseled to quit DVT Px: SCDs for now Admission and Anticipated Discharge Date Admission Date: July 10, 2021 Subjective Seen and examined at bedside States having minimal pain at surgical site Denies any chest pain, shortness of breath, dizziness, nausea, abdominal pain Offers no other complaints Review of Systems Review of Systems: All systems reviewed & are unremarkable except as noted in Subjective Physical Exam Physical Exam: Physical Exam: Vitals signs as noted above General Appearance:Morbidly Obese, no apparent distress Head: normocephalic, Atraumatic Eyes: normal inspection, EOMI Neck: supple, Trachea midline Respiratory/Chest: Normal breath sounds, CTA Cardiovascular: S1, S2, + murmur Abdomen/GI:Soft, Non tender, Bowel sounds present perirectal wound in dressing Extremities/Musculoskeletal:normal inspection, no edema Neurologic/Psych:AAOX3, grossly no focal neurological deficits Skin: normal color, warm Results & Data Results & Data ([facility]) Vital Signs (Past 12 Hours) Vital Signs Temp Pulse Resp BP Pulse Ox 07/11/21 15:34 36.4 C L 70 16 117/68 97 07/11/21 11:54 36.5 C 65 13 115/61 97 07/11/21 08:53 66 108/63 07/11/21 07:23 36.4 C L 65 16 109/65 96 Laboratory Results Short CBC 07/10/21 07/11/21 07/11/21 Range/Units 18:35 00:02 05:18 WBC 17.97 H 17.40 H 17.20 H (4.8-10.8) K/uL Hgb 14.1 12.6 13.4 (12.0-16.0) g/dL Hct 42.5 38.0 39.8 (37-47) % Plt Count 354 296 307 (130-400) K/uL BMP 07/10/21 07/11/21 18:35 05:18 Sodium 135 L 134 L Potassium 3.7 4.4 Chloride 103 104 Carbon Dioxide 23 23 BUN 16 12 Creatinine 0.80 0.52 L Glucose 270 H 263 H Calcium 8.9 8.3 L Liver Function 07/10/21 07/11/21 Range/Units 18:35 05:18 Total Bilirubin 0.3 0.3 (0.2-1.0) mg/dl AST 7 L 6 L (13-39) U/L ALT 8 7 (7-52) U/L Alkaline Phosphatase 101 88 (34-104) U/L Albumin 3.6 3.2 L (3.4-5.0) gm/dl
--- NOTE | 2021-07-11 16:33 | OB/GYN Consultation ---
Date of Consultation July 11, 2021 Assessment & Plan (1) Abscess of buttock, left: 55-year-old -0-0-5 postmenopausal female who presented to ER with bilateral buttock abscess and had surgery by Dr. Dillon as Incision and drainage of bilateral buttock abscess this morning, postop day 0, Questionable rectovaginal fistula, unable to perform pelvic exam due to recent surgery and patient discomfort, Patient wants to hold on pelvic exam and follow-up later, Continue to monitor, All questions were answered. I will sign out to my partner for exam this weekend if she will be here on Wednesday I can follow-up, Thank you for the consultation. (2) Abscess of buttock, right: (3) Perianal fistula: (4) History of diabetes mellitus: (5) Menopausal state: History of Present Illness Attending Physician: Johana Lao MD History of Present Illness Is a 55-year-old -0-0-5 postmenopausal female who is status post Incision and drainage of bilateral buttock abscess this morning by Dr. Lao. She has been feeling drainage and pus coming from her holes not sure which will for about 2 months. She presented to ER last night and found to have bilateral buttock abscess. She was taking [address] Lao and had surgery this morning. It was thought that she might also have rectovaginal fistula. Patient denies any history of stool leaking or discharge from vagina, she denies history of traumatic vaginal , denies history of pelvic radiation therapy nor Crohn's disease. She had uneventful full-term spontaneous vaginal deliveries in the past with no history of laceration or repair, no history of forceps or vacuum use. Her youngest child is 24-year-old. She has been menopausal for about 4 years and never use hormones. She has not seen VEHICLE W[employer]OW [employer]INTER for about 3 to 4 years. She had normal Pap smear and exam at that time. She has a dressing and rectal drain covered by sponges and feels sore. I discussed how to diagnose rectovaginal fistula starting with pelvic exam with speculum possible instruments used possible rectal exam and use of methylene blue or radiologic exam like CT scan. She states she is sore and she is not ready for pelvic or speculum exam today. I will sign out to my partner for possible exam of Wednesday or Wednesday if she will be here on Wednesday I will come back and see her. Recommended to follow-up at our [facility] office at [facility]. 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 She sees [facility] for her medical care and was unable to make an appointment with [facility] clinic there. Allergies Allergy/AdvReac Type Severity Reaction Status Date / Time ibuprofen AdvReac Intermediate RASH Verified 12/11/18 15:58 naproxen AdvReac Intermediate rash Verified 12/11/18 15:58 Home Medications Medication Instructions Recorded Confirmed Type atorvastatin 40 mg tablet 40 mg PO DAILY 12/11/18 12/11/18 History fluticasone furoate 100 1 inh INHALATION DAILY 12/11/18 12/11/18 History mcg/actuation blister powder for inhalation (Arnuity Ellipta) lisinopril 5 mg tablet 5 mg PO DAILY 12/11/18 12/11/18 History sitagliptin 50 mg tablet (Januvia) 50 mg PO DAILY 12/11/18 12/11/18 History oxycodone-acetaminophen 5 mg-325 1 tab PO Q6H PRN #12 tab 07/11/21 Rx mg tablet sulfamethoxazole 800 1 tab PO BID 10 Days #20 tab 07/11/21 Rx mg-trimethoprim 160 mg tablet (Bactrim DS) Patient History Medical History No pertinent past medical history Surgical History No pertinent past surgical history Social History Smoking Status: Current every day smoker Tobacco Type: Cigarettes Do You Dip or Chew Tobacco: No; Tobacco Cessation Education Requested by Patient: No Hx Alcohol Use: No Hx Substance Use: No Preferred Language: Azeri Communication Ability: Effective Personal Financial Representative Required: No Beliefs That Will Affect Care: None marital status: Current Living Situation: Spouse Current Living Situation Comment: current occupational status: employed Other Information That Helps Us Care for You: No Feels Safe at Home: Yes Safety Concerns: Feels Safe At This Time Assistive Devices: None Physical Exam Constitutional: WD/WN, vitals as above well developed, well nourished and + obese SHe seems comfortable, speaking normally. Pleasant female Genitourinary: I gently opened her dressing and lower buttock sacral area and there were skin on the coccygeal lesion and a plastic drain on the anal orifice with sutures. Patient declined pelvic exam for today. Results & Data ([facility]) Vital Signs (Past 12 Hours) Vital Signs Temp Pulse Resp BP Pulse Ox 07/11/21 15:34 36.4 C L 70 16 117/68 97 07/11/21 11:54 36.5 C 65 13 115/61 97 07/11/21 08:53 66 108/63 07/11/21 07:23 36.4 C L 65 16 109/65 96 Laboratory Results Lab Results 07/10/21 07/10/21 07/10/21 Range/Units 18:35 18:35 21:28 WBC 17.97 H (4.8-10.8) K/uL RBC 4.78 (4.2-5.4) M/uL Hgb 14.1 (12.0-16.0) g/dL Hct 42.5 (37-47) % MCV 88.9 (80-100) fL MCH 29.5 (25-34) pg MCHC 33.2 (32-36) g/dL RDW Std Deviation 42.4 (36.4-46.3) fL RDW Coeff of [place] 12.9 (11.5-14.5) % Plt Count 354 (130-400) K/uL MPV 9.4 (7.4-10.4) fL Immature Gran % (Auto) 0.3 % Neut % (Auto) 79.7 % Lymph % (Auto) 13.8 % [place] % (Auto) 5.7 % Eos % (Auto) 0.3 % Baso % (Auto) 0.2 % Neut # (Auto) 14.34 H (1.4-6.5) K/uL Lymph # (Auto) 2.48 (1.2-3.4) K/uL [place] # (Auto) 1.02 H (0.11-0.59) K/uL Eos # (Auto) 0.05 (0-0.5) K/uL Baso # (Auto) 0.03 (0-0.2) K/uL Immature Gran # (Auto) 0.05 H (0.00-0.02) K/uL Sodium 135 L (136-145) mmol/L Potassium 3.7 (3.5-5.1) mmol/L Chloride 103 (98-107) mmol/L Carbon Dioxide 23 (21-32) mmol/L Anion Gap 9 (3-11) BUN 16 (6-23) mg/dl Creatinine 0.80 (0.6-1.2) mg/dl Est Cr Clr Drug Dosing Not Reportable Est GFR ( Amer) 96.9 ml/min Est GFR (Non-Af Amer) 83.6 ml/min BUN/Creatinine Ratio 20.0 (10-20) Glucose 270 H (70-99) mg/dl POC Glucose (70-99) mg/dl Estimat Average Glucose mg/dl Hemoglobin A1c (4.5-5.6) % Calcium 8.9 (8.5-10.1) mg/dl Total Bilirubin 0.3 (0.2-1.0) mg/dl AST 7 L (13-39) U/L ALT 8 (7-52) U/L Alkaline Phosphatase 101 (34-104) U/L Total Protein 7.9 (6.0-8.3) gm/dl Albumin 3.6 (3.4-5.0) gm/dl Globulin 4.3 H (2.5-4.0) gm/dl Albumin/Globulin Ratio 0.8 L (0.9-2) Urine Test (Negative) POC Ur Test Nasal Screen MRSA (PCR) (Negative) SARS-CoV-2, RNA, NAAT NEGATIVE (NEGATIVE) 07/10/21 07/10/21 07/10/21 Range/Units 21:45 23:14 23:15 WBC (4.8-10.8) K/uL RBC (4.2-5.4) M/uL Hgb (12.0-16.0) g/dL Hct (37-47) % MCV (80-100) fL MCH (25-34) pg MCHC (32-36) g/dL RDW Std Deviation (36.4-46.3) fL RDW Coeff of Won (11.5-14.5) % Plt Count (130-400) K/uL MPV (7.4-10.4) fL Immature Gran % (Auto) % Neut % (Auto) % Lymph % (Auto) % [place] % (Auto) % Eos % (Auto) % Baso % (Auto) % Neut # (Auto) (1.4-6.5) K/uL Lymph # (Auto) (1.2-3.4) K/uL [place] # (Auto) (0.11-0.59) K/uL Eos # (Auto) (0-0.5) K/uL Baso # (Auto) (0-0.2) K/uL Immature Gran # (Auto) (0.00-0.02) K/uL Sodium (136-145) mmol/L Potassium (3.5-5.1) mmol/L Chloride (98-107) mmol/L Carbon Dioxide (21-32) mmol/L Anion Gap (3-11) BUN (6-23) mg/dl Creatinine (0.6-1.2) mg/dl Est Cr Clr Drug Dosing Est GFR ( Amer) ml/min Est GFR (Non-Af Amer) ml/min BUN/Creatinine Ratio (10-20) Glucose (70-99) mg/dl POC Glucose 189 H (70-99) mg/dl Estimat Average Glucose mg/dl Hemoglobin A1c (4.5-5.6) % Calcium (8.5-10.1) mg/dl Total Bilirubin (0.2-1.0) mg/dl AST (13-39) U/L ALT (7-52) U/L Alkaline Phosphatase (34-104) U/L Total Protein (6.0-8.3) gm/dl Albumin (3.4-5.0) gm/dl Globulin (2.5-4.0) gm/dl Albumin/Globulin Ratio (0.9-2) Urine Test Negative (Negative) POC Ur Test Cancelled Nasal Screen MRSA (PCR) (Negative) SARS-CoV-2, RNA, NAAT (NEGATIVE) 07/11/21 07/11/21 07/11/21 Range/Units 00:02 00:02 00:37 WBC 17.40 H (4.8-10.8) K/uL RBC 4.27 (4.2-5.4) M/uL Hgb 12.6 (12.0-16.0) g/dL Hct 38.0 (37-47) % MCV 89.0 (80-100) fL MCH 29.5 (25-34) pg MCHC 33.2 (32-36) g/dL RDW Std Deviation 41.7 (36.4-46.3) fL RDW Coeff of Won 12.9 (11.5-14.5) % Plt Count 296 (130-400) K/uL MPV 9.1 (7.4-10.4) fL Immature Gran % (Auto) 0.4 % Neut % (Auto) 80.9 % Lymph % (Auto) 10.8 % [place] % (Auto) 7.2 % Eos % (Auto) 0.6 % Baso % (Auto) 0.1 % Neut # (Auto) 14.09 H (1.4-6.5) K/uL Lymph # (Auto) 1.88 (1.2-3.4) K/uL [place] # (Auto) 1.25 H (0.11-0.59) K/uL Eos # (Auto) 0.10 (0-0.5) K/uL Baso # (Auto) 0.01 (0-0.2) K/uL Immature Gran # (Auto) 0.07 H (0.00-0.02) K/uL Sodium (136-145) mmol/L Potassium (3.5-5.1) mmol/L Chloride (98-107) mmol/L Carbon Dioxide (21-32) mmol/L Anion Gap (3-11) BUN (6-23) mg/dl Creatinine (0.6-1.2) mg/dl Est Cr Clr Drug Dosing Est GFR ( Amer) ml/min Est GFR (Non-Af Amer) ml/min BUN/Creatinine Ratio (10-20) Glucose (70-99) mg/dl POC Glucose 226 H (70-99) mg/dl Estimat Average Glucose 169 mg/dl Hemoglobin A1c 7.5 H (4.5-5.6) % Calcium (8.5-10.1) mg/dl Total Bilirubin (0.2-1.0) mg/dl AST (13-39) U/L ALT (7-52) U/L Alkaline Phosphatase (34-104) U/L Total Protein (6.0-8.3) gm/dl Albumin (3.4-5.0) gm/dl Globulin (2.5-4.0) gm/dl Albumin/Globulin Ratio (0.9-2) Urine Test (Negative) POC Ur Test Nasal Screen MRSA (PCR) (Negative) SARS-CoV-2, RNA, NAAT (NEGATIVE) 07/11/21 07/11/21 07/11/21 Range/Units 05:18 05:18 07:51 WBC 17.20 H (4.8-10.8) K/uL RBC 4.48 (4.2-5.4) M/uL Hgb 13.4 (12.0-16.0) g/dL Hct 39.8 (37-47) % MCV 88.8 (80-100) fL MCH 29.9 (25-34) pg MCHC 33.7 (32-36) g/dL RDW Std Deviation 41.6 (36.4-46.3) fL RDW Coeff of Won 12.8 (11.5-14.5) % Plt Count 307 (130-400) K/uL MPV 9.2 (7.4-10.4) fL Immature Gran % (Auto) 0.3 % Neut % (Auto) 86.8 % Lymph % (Auto) 8.4 % [place] % (Auto) 4.4 % Eos % (Auto) 0.0 % Baso % (Auto) 0.1 % Neut # (Auto) 14.94 H (1.4-6.5) K/uL Lymph # (Auto) 1.44 (1.2-3.4) K/uL [place] # (Auto) 0.76 H (0.11-0.59) K/uL Eos # (Auto) 0.00 (0-0.5) K/uL Baso # (Auto) 0.01 (0-0.2) K/uL Immature Gran # (Auto) 0.05 H (0.00-0.02) K/uL Sodium 134 L (136-145) mmol/L Potassium 4.4 (3.5-5.1) mmol/L Chloride 104 (98-107) mmol/L Carbon Dioxide 23 (21-32) mmol/L Anion Gap 7 (3-11) BUN 12 (6-23) mg/dl Creatinine 0.52 L (0.6-1.2) mg/dl Est Cr Clr Drug Dosing 146.4 Est GFR ( Amer) 125.5 ml/min Est GFR (Non-Af Amer) 108.3 ml/min BUN/Creatinine Ratio 23.1 H (10-20) Glucose 263 H (70-99) mg/dl POC Glucose 227 H (70-99) mg/dl Estimat Average Glucose mg/dl Hemoglobin A1c (4.5-5.6) % Calcium 8.3 L (8.5-10.1) mg/dl Total Bilirubin 0.3 (0.2-1.0) mg/dl AST 6 L (13-39) U/L ALT 7 (7-52) U/L Alkaline Phosphatase 88 (34-104) U/L Total Protein 6.8 (6.0-8.3) gm/dl Albumin 3.2 L (3.4-5.0) gm/dl Globulin 3.6 (2.5-4.0) gm/dl Albumin/Globulin Ratio 0.9 (0.9-2) Urine Test (Negative) POC Ur Test Nasal Screen MRSA (PCR) (Negative) SARS-CoV-2, RNA, NAAT (NEGATIVE) 07/11/21 07/11/21 Range/Units 11:11 11:54 WBC (4.8-10.8) K/uL RBC (4.2-5.4) M/uL Hgb (12.0-16.0) g/dL Hct (37-47) % MCV (80-100) fL MCH (25-34) pg MCHC (32-36) g/dL RDW Std Deviation (36.4-46.3) fL RDW Coeff of Won (11.5-14.5) % Plt Count (130-400) K/uL MPV (7.4-10.4) fL Immature Gran % (Auto) % Neut % (Auto) % Lymph % (Auto) % [place] % (Auto) % Eos % (Auto) % Baso % (Auto) % Neut # (Auto) (1.4-6.5) K/uL Lymph # (Auto) (1.2-3.4) K/uL [place] # (Auto) (0.11-0.59) K/uL Eos # (Auto) (0-0.5) K/uL Baso # (Auto) (0-0.2) K/uL Immature Gran # (Auto) (0.00-0.02) K/uL Sodium (136-145) mmol/L Potassium (3.5-5.1) mmol/L Chloride (98-107) mmol/L Carbon Dioxide (21-32) mmol/L Anion Gap (3-11) BUN (6-23) mg/dl Creatinine (0.6-1.2) mg/dl Est Cr Clr Drug Dosing Est GFR ( Amer) ml/min Est GFR (Non-Af Amer) ml/min BUN/Creatinine Ratio (10-20) Glucose (70-99) mg/dl POC Glucose 213 H (70-99) mg/dl Estimat Average Glucose mg/dl Hemoglobin A1c (4.5-5.6) % Calcium (8.5-10.1) mg/dl Total Bilirubin (0.2-1.0) mg/dl AST (13-39) U/L ALT (7-52) U/L Alkaline Phosphatase (34-104) U/L Total Protein (6.0-8.3) gm/dl Albumin (3.4-5.0) gm/dl Globulin (2.5-4.0) gm/dl Albumin/Globulin Ratio (0.9-2) Urine Test (Negative) POC Ur Test Nasal Screen MRSA (PCR) Negative (Negative) SARS-CoV-2, RNA, NAAT (NEGATIVE)
[2021-07-11] MEDS: DOCUSATE SODIUM 100 MG CAP PO SCH (20:55)
[2021-07-12] MEDS: PIPERACILLIN/TAZOBACTAM 4.5 GM in DEXTROSE 5% 100 ML IV SCH ×3 (04:20→20:55)
[2021-07-12] MEDS: oxyCODONE/ACETAMINOPHEN 5mg/325mg TAB PO PRN ×4 (04:27→21:13)
--- NOTE | 2021-07-12 06:46 | Surgery Progress Note ---
Date of Service July 12, 2021 Assessment & Plan (1) Abscess of buttock, left: Plan: Patient is status post I&D of buttock abscess (postop day #1) Wound care as directed by wound care nurse Continue antibiotics in form of daptomycin and Zosyn. Antibiotics can be further tailored based on results of operative cultures which are pending Remainder of care per medical team (2) Abscess of buttock, right: Admission and Anticipated Discharge Date Admission Date: July 10, 2021 Supervising Physician Co-Signing Physician Notes Dr. Balderrama-patient appears to be feeling much better Nurses to change packing later this morning-patient wishes to go home She says her daughter can help her with the wounds-we will see how she tolerates the dressing changes Likely can go home with oral antibiotics and wound clinic follow-up as per Dr. Lao plan Subjective Patient is resting comfortably in bed. She denies any fevers, shakes, chills. She denies significant pain from yesterday's procedure Physical Exam Physical Exam: Patient's buttocks is covered with surgical dressing. This was not removed at the time of my initial exam we are waiting for wound care nurse to see. Results & Data ([facility]) Vital Signs (Past 12 Hours) Vital Signs Temp Pulse Resp BP Pulse Ox 07/11/21 23:05 36.5 C 61 16 90/53 L 98 PG Care Time/CCT Total # of Minutes Spent Total Time Spent with Patient: Total time spent is greater than 50% in coordination of care (as documented) at patient's floor/unit and/or counseling patient: Coding Level of Care Code None Diagnoses Abscess of buttock, left L02.31 Abscess of buttock, right L02.31
[2021-07-12] MEDS: ATORVASTATIN 40 MG TAB PO SCH (08:19)
[2021-07-12] MEDS: FLUTICASONE FUROATE 100MCG 14 PUFFS/INHALER INH SCH (08:19)
[2021-07-12] MEDS: DOCUSATE SODIUM 100 MG CAP PO SCH ×2 (08:19→21:12)
[2021-07-12] MEDS: ENOXAPARIN INJ 40 MG/0.4 ML SYR SQ SCH (08:19)
[2021-07-12] MEDS: lisinopril 5 MG TAB PO SCH (08:19)
[2021-07-12] MEDS: DAPTOmycin 450 MG in SYRINGE 0 ML IV SCH (08:19)
[2021-07-12] MEDS: INSULIN ASPART PER UNIT SC SCH ×4 (08:59→21:18)
[2021-07-12] MEDS: INSULIN GLARGINE SOLOSTAR 100 UNITS/ML 3 ML PEN SC SCH ×2 (09:43→21:15)
[2021-07-12 10:40] LABS: Basophils # (auto) 0.02 K/uL (0-0.2); Basophils % (auto) 0.2 %; Eosinophils # (auto) 0.11 K/uL (0-0.5); Eosinophils % (auto) 0.9 %; Hematocrit (blood only) 36.5 % (37-47); Hemoglobin 11.9 g/dL (12.0-16.0); Immature Granulocytes # (auto) 0.03 K/uL (0.00-0.02); Immature Granulocytes % (auto) 0.3 %; Lymphocytes # (auto) 4.12 K/uL (1.2-3.4); Lymphocytes % (auto) 35.2 %; Mean Corpuscular Hemoglobin 29.2 pg (25-34); Mean Corpuscular Hgb Conc 32.6 g/dL (32-36); Mean Corpuscular Volume 89.7 fL (80-100); Mean Platelet Volume 9.1 fL (7.4-10.4); Monocytes # (auto) 0.77 K/uL (0.11-0.59); Monocytes % (auto) 6.6 %; Neutrophils # (auto) 6.64 K/uL (1.4-6.5); Neutrophils % (auto) 56.8 %; Platelet Count 321 K/uL (130-400); RDW Coefficient of Variation 12.9 % (11.5-14.5); RDW Standard Deviation 42.3 fL (36.4-46.3); Red Blood Count 4.07 M/uL (4.2-5.4); White Blood Count 11.69 K/uL (4.8-10.8)
[2021-07-12] MEDS: LACTATED RINGER'S 1,000 ML IV SCH ×2 (11:07→23:26)
[2021-07-12 11:21] LABS: Albumin Globulin Ratio 0.9 (0.9-2); Albumin Level 2.9 gm/dl (3.4-5.0); BUN Creatinine Ratio 29.6 (10-20); Bilirubin,Total 0.2 mg/dl (0.2-1.0); Calcium 8.2 mg/dl (8.5-10.1); Globulin 3.3 gm/dl (2.5-4.0); Magnesium 1.9 mg/dl (1.7-2.4); Potassium 3.8 mmol/L (3.5-5.1); Total Protein 6.2 gm/dl (6.0-8.3)
[2021-07-12] MEDS ORDERED: LOPERAMIDE HCL 2 MG CAP PO PRN (16:04)
--- NOTE | 2021-07-12 19:14 | Hospitalist Progress Note ---
Date of Service July 12, 2021 Assessment & Plan (1) Sepsis: Plan: Sepsis Bilateral buttock abscesses/anal fistula ? 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 for input on rectovaginal fistula Leukocytosis trending down Cultures negative to date Hyponatremia Sodium 134 >143 Resolved monitor Hypertension Continue lisinopril Monitor Hyperlipidemia on statin COPD, No signs of exacerbation DM II HbA1C: 7.5 Monitor BGs Hold oral medication Continue insulin therapy And adjust insulin dose as needed Tobacco disorder Counseled to quit DVT Px: As per Primary Team Admission and Anticipated Discharge Date Admission Date: July 10, 2021 Subjective Patient is seen and examined at bedside Doing well today Denies any pain at surgical site Offers no complaints Eager to get discharged Denies any chest pain, shortness of breath, dizziness, nausea, abdominal pain Review of Systems Review of Systems: All systems reviewed & are unremarkable except as noted in Subjective Physical Exam Physical Exam: Physical Exam: Vitals signs as noted above General Appearance:Morbidly Obese, no apparent distress Head: normocephalic, Atraumatic Eyes: normal inspection, EOMI Neck: supple, Trachea midline Respiratory/Chest: Normal breath sounds, CTA Cardiovascular: S1, S2, + murmur Abdomen/GI:Soft, Non tender, Bowel sounds present perirectal wound in dressing Extremities/Musculoskeletal:normal inspection, no edema Neurologic/Psych:AAOX3, grossly no focal neurological deficits Skin: normal color, warm Results & Data Results & Data ([facility]) Vital Signs (Past 12 Hours) Vital Signs Temp Pulse Resp BP Pulse Ox 07/12/21 16:11 36.5 C 60 16 92/53 L 97 07/12/21 07:35 36.5 C 64 16 102/67 98 Laboratory Results Short CBC 07/12/21 Range/Units 10:31 WBC 11.69 H (4.8-10.8) K/uL Hgb 11.9 L (12.0-16.0) g/dL Hct 36.5 L (37-47) % Plt Count 321 (130-400) K/uL BMP 07/12/21 10:31 Sodium 143 D Potassium 3.8 Chloride 108 H Carbon Dioxide 27 BUN 16 Creatinine 0.54 L Glucose 229 H Calcium 8.2 L Liver Function 07/12/21 Range/Units 10:31 Total Bilirubin 0.2 (0.2-1.0) mg/dl AST 7 L (13-39) U/L ALT 8 (7-52) U/L Alkaline Phosphatase 74 (34-104) U/L Albumin 2.9 L (3.4-5.0) gm/dl
[2021-07-13] MEDS: PIPERACILLIN/TAZOBACTAM 4.5 GM in DEXTROSE 5% 100 ML IV SCH (04:16)
--- NOTE | 2021-07-13 05:54 | Surgery Progress Note ---
Date of Service July 13, 2021 Assessment & Plan (1) Abscess of buttock, left: Plan: Patient is status post I&D of buttock abscess (postop day #2) Continue local wound care. Continue antibiotics in form of daptomycin and Zosyn. Antibiotics can be further tailored based on results of operative cultures which presently have pinpoint growth and artery incubating Patient to follow-up with Dr. Lao at time of d/c Remainder of care per medical team (2) Abscess of buttock, right: Admission and Anticipated Discharge Date Admission Date: July 10, 2021 Supervising Physician Co-Signing Physician Notes Dr. Balderrama-patient is doing much better The left Sesar drain came out and was removed but continues to have ribbon gauze packing I do believe she can go home with the packing and her family apparently can take care of this daily We will continue her on antibiotics and have her follow-up with the surgery anne jaquez Subjective Patient denies any specific complaints today. She notes some minor pain at surgical site but otherwise is feeling well. She denies any fevers, shakes, chills. She denies any nausea vomiting Physical Exam Physical Exam: [facility] over I&D site. Nurses to change packing later this morning Results & Data ([facility]) Vital Signs (Past 12 Hours) Vital Signs Temp Pulse Resp BP Pulse Ox 07/12/21 23:28 36.8 C 73 16 126/78 95 PG Care Time/CCT Total # of Minutes Spent Total Time Spent with Patient: Total time spent is greater than 50% in coordination of care (as documented) at patient's floor/unit and/or counseling patient: Coding Level of Care Code None Diagnoses Abscess of buttock, left L02.31 Abscess of buttock, right L02.31
[2021-07-13] MEDS: DAPTOmycin 450 MG in SYRINGE 0 ML IV SCH (07:36)
[2021-07-13] MEDS: FLUTICASONE FUROATE 100MCG 14 PUFFS/INHALER INH SCH (07:37)
[2021-07-13] MEDS: ENOXAPARIN INJ 40 MG/0.4 ML SYR SQ SCH (07:37)
[2021-07-13] MEDS: ATORVASTATIN 40 MG TAB PO SCH (07:37)
[2021-07-13] MEDS: lisinopril 5 MG TAB PO SCH (07:37)
[2021-07-13] MEDS: DOCUSATE SODIUM 100 MG CAP PO SCH (07:37)
[2021-07-13 07:45] LABS: Hematocrit (blood only) 36.2 % (37-47); Hemoglobin 11.7 g/dL (12.0-16.0); Mean Corpuscular Hemoglobin 29.5 pg (25-34); Mean Corpuscular Hgb Conc 32.3 g/dL (32-36); Mean Corpuscular Volume 91.2 fL (80-100); Mean Platelet Volume 9.4 fL (7.4-10.4); Platelet Count 330 K/uL (130-400); RDW Standard Deviation 43.7 fL (36.4-46.3); Red Blood Count 3.97 M/uL (4.2-5.4); White Blood Count 11.12 K/uL (4.8-10.8)
[2021-07-13 07:55] LABS: BUN Creatinine Ratio 21.1 (10-20); Calcium 8.1 mg/dl (8.5-10.1); Creatinine Clr Calc Pharmacy 133.6 ml/min; Est GFR (African American) 121.8 ml/min; Est GFR (Non-African American) 105.1 ml/min; Potassium 3.9 mmol/L (3.5-5.1)
[2021-07-13] MEDS: INSULIN GLARGINE SOLOSTAR 100 UNITS/ML 3 ML PEN SC SCH (08:55)
[2021-07-13] MEDS: INSULIN ASPART PER UNIT SC SCH (08:55)
[2021-07-13] MEDS: oxyCODONE/ACETAMINOPHEN 5mg/325mg TAB PO PRN (09:20)
--- NOTE | 2021-07-30 16:31 | Discharge Summary (DS) ---
DATE OF ADMISSION: 07/10/2021 DATE OF DISCHARGE: 07/13/2021 ADMISSION DIAGNOSIS: Bilateral buttock abscess. DISCHARGE DIAGNOSIS: Bilateral buttock abscess. OPERATION: Incision and drainage of bilateral buttock abscess. SURGEON: Johana Lao MD. DETAILS OF DISCHARGE SUMMARY: This is a 55-year-old female who presented to ED with a few days histo ry of bilateral buttock pain with tenderness and infection. The patient had bilateral buttock infect ion over the last 3 years, and in the last few days, the patient was feeling more pain. The patient came to the ER and the patient had a CT scan diagnosis of bilateral buttock abscess. After I examine d the patient, reviewed all the CT scan and labs with the patient, I recommended to do the incision a nd drainage of bilateral buttock abscess. We took the patient to the OR, we did bilateral buttock ab scess incision and drainage and the patient tolerated the procedure well. After the procedure, the p atient was transferred to recovery room and later on transferred to regular floor. The patient is do ing fine, pain is less, no fever. Wound packing was changed. PHYSICAL EXAMINATION: VITAL SIGNS: Temperature is 36.8, respiratory rate is 16, heart rate 63, blood pressure 146/72, O2 s aturation 99% on room air. GENERAL: The patient is alert, awake, oriented x3. HEENT: Normal limitation. NEUROLOGIC: Exam intact. NECK: No JVD. CHEST: Bilateral lung sounds clear. HEART: Normal S1 and S2. No murmur. ABDOMEN: Soft and no tenderness. Bowel sounds positive. BACK: Bilateral buttock, the wound is dry and packing intact. Also, we put a Sesar drainage in ea ch incision site. EXTREMITIES: No edema. The patient wanted to go home on 07/13/2021. We gave the patient postoperative care instructions. T he patient will follow up with [facility] for packing change. Fo llow up with me as needed. The patient understands. Job ID: [id number]
--- NOTE | 2021-07-31 05:19 | Coding Query ---
SEPSIS To promote full compliance with coding requirements relating to patient care, physician participation is requested in all cases of flat drier uncertainty. Please assist us with the question(s) below: In responding to this query, please exercise your independent professional judgement. The fact that a question is asked does not imply that any particular answer is desired or expected. We appreciate your clarification on this issue. Throughout the medical record, you have clearly documented a localized infection and your patient has clinical evidence of a generalized sepsis or severe sepsis. The term urosepsis is a nonspecific entity and is coded as an UTI. If the patient has sepsis, severe sepsis, from an urinary source or some other source, please clarify in your response below. The medical record reflects the following clinical findings: Pt admitted with buttock abscesses. Had OR debridement. Hospitalist Consult documents Sepsis- also Hospitalist Progress notes 07/11 & 07/12. Please check below the appropriate phrase describing the diagnosis treated if applicable. Thanks for your help! Jeff Colbert ONCOLOGY RN [facility] ____ ( )Bacteremia (Nonspecific laboratory finding of bacteria in the blood) Specify Organism ( ) Present on Admission ( ) Not present on admission ( x) Unable to clinically determine ( ) Septicemia (Systemic disease associated with the presence of pathogenic microorganisms in the blood): Specify Organism ( ) Present on Admission ( )Not present on admission (x ) Unable to clinically determine ( ) Sepsis Specify Organism Specify Associated Condition/Diagnosis ( x) Present on Admission ( ) Not present on admission ( ) Unable to clinically determine ( ) Severe Sepsis (Sepsis associated with acute organ dysfunction) Specify Organism Specify Associated Condition/Diagnosis ( ) Present on Admission ( x) Not present on admission Unable to clinically determine ( ) Septic Shock (Severe sepsis with acute circulatory failure, unexplained by other causes) ( ) Present on Admission (x ) Not present on admission ( ) Unable to clinically determine ( ) Other, patient has: MTDD
== END 2021-07-13 09:52 | disposition home or self-care (01) | DRG 603 ==
LOC: ED 18:04 → 3E 22:06

== ENCOUNTER 2023-05-07 09:59 | Observation (INO) ==
[2023-05-07] MEDS ORDERED: SODIUM CHLORIDE 0.9% 1,000 ML IV ONE (10:58)
[2023-05-07 11:15] LABS: Basophils # (auto) 0.06 K/uL (0.00-0.20); Basophils % (auto) 0.3 %; Eosinophils # (auto) 0.15 K/uL (0.00-0.50); Eosinophils % (auto) 0.8 %; Hematocrit (blood only) 42.4 % (37.0-47.0); Hemoglobin 13.6 g/dl (12.0-16.0); Immature Granulocytes # (auto) 0.06 K/uL (0.01-0.20); Immature Granulocytes % (auto) 0.3 %; Lymphocytes # (auto) 1.89 K/uL (1.20-3.40); Lymphocytes % (auto) 10.6 %; Mean Corpuscular Hemoglobin 27.5 pg (25.0-34.0); Mean Corpuscular Hgb Conc 32.1 g/dL (32.0-36.0); Mean Corpuscular Volume 85.8 fL (80.0-100.0); Mean Platelet Volume 9.7 fL (9.4-12.4); Monocytes # (auto) 1.24 K/uL (0.11-0.59); Neutrophils # (auto) 14.42 K/uL (1.40-6.50); Platelet Count 303 K/uL (130-400); RDW Coefficient of Variation 14.3 % (11.5-14.5); RDW Standard Deviation 44.9 fL (36.4-46.3); Red Blood Count 4.94 M/uL (4.20-5.40); White Blood Count 17.82 K/ul (4.8-10.8)
[2023-05-07 11:32] LABS: Albumin Globulin Ratio 1.1 (0.9-2); Albumin Level 3.8 gm/dl (3.4-5.0); BUN Creatinine Ratio 30.6 (10-20); Bilirubin,Total 0.3 mg/dl (0.2-1.0); Calcium 8.9 mg/dl (8.6-10.3); Creatinine Clr Calc Pharmacy 112.8 ml/min; Est GFR (African American) 116.8 ml/min; Est GFR (Non-African American) 100.8 ml/min; Globulin 3.5 gm/dl (2.5-4.0); Potassium 3.8 mmol/L (3.5-5.1); Total Protein 7.3 gm/dl (6.0-8.3)
[2023-05-07] MEDS ORDERED: ACETAMINOPHEN 1,000 MG/100 ML VIAL IV STA (11:35)
[2023-05-07 11:39] LABS: Troponin I High Sensitivity 5.9 pg/ml (0-14)
[2023-05-07 11:53] LABS: Partial Thromboplastin Time 28.5 Seconds (21.0-31.0); Prothrombin Time 10.7 Seconds (9.0-12.0)
--- NOTE | 2023-05-07 11:53 | XRay Report ---
SINGLE VIEW CHEST CLINICAL HISTORY: Atypical chest pain. FINDINGS: An AP, portable, upright chest radiograph is compared to study dated 04/27/2023 and correla jose armando with chest CT dated 07/30/2017. The cardiac silhouette is enlarged. There is prominence of the pulm onary vasculature and interstitial thickening. Atelectasis is seen at the lung bases. No large pleura l effusion or pneumothorax is identify. The skeletal structures are osteopenic. The bony thorax is gr ossly intact. IMPRESSION: 1. Enlarged cardiac silhouette with prominence of the pulmonary vasculature and interstitial thickeni ng. Correlate clinically for evidence of fluid overload/congestive change. A pneumonitis could appear similar. Radiographic follow-up resolution is recommended. 2. No large pleural effusion is identified. ACT 112: Negative or not required by law. Electronically signed by: Efren Nielsen M.D. 05/07/2023 11:52 AM
[2023-05-07 12:03] LABS: D Dimer 510 ug/L FEU (0-500)
[2023-05-07 12:15] LABS: Influenza A virus by PCR Negative (Neg); Influenza B virus by PCR Negative (Neg); RSV by PCR Negative (Neg); SARS CoV2 RNA(COVID-19) Ceph NEGATIVE (Negative)
--- NOTE | 2023-05-07 12:54 | Emergency Department Note ---
Impression & Plan Chest pain, Tobacco abuse, Type II diabetes mellitus, Dyspnea ED Provider Note CHIEF COMPLAINT: Left-sided chest pain HISTORY OF PRESENT ILLNESS: This 57-year-old female patient presents to the emergency department via private vehicle for evaluation of shortness of breath, chest pain, body aches, and chills. Symptoms started this morning when she awoke. Patient states it feels like a "elephant sitting on my chest". The patient reports a history of an RI with stent placement 1 year ago in [place]. She states 3 weeks ago, she was "dumpster diving" when she struck the left ribs on the side of a dumpster. She was evaluated here and there was no fracture noted. Patient denies any nausea or vomiting. No documented fever, but there have been chills. No abdominal pain, numbness, tingling, weakness. No history of similar symptoms. REVIEW OF SYSTEMS: A 10 system review of systems was performed with positives and pertinent negatives listed in the history of present illness. All other systems were reviewed and are negative. ALLERGIES: Ibuprofen, naproxen PHYSICAL EXAM: VITALS: Vitals are noted on the nurse's note and reviewed by myself. Vital signs stable. GENERAL: This is a 57-year-old for, in no acute distress, nondiaphoretic, well- developed well-nourished. SKIN: The skin was without rashes, erythema, edema, or bruising. There is no tenting of the skin. Capillary refill less than 2 seconds. HEAD: Normocephalic atraumatic. EYES: Conjunctivae without injection, sclerae without icterus. NECK: Supple without nuchal rigidity. No lymphadenopathy. No JVD. HEART: Regular rate and rhythm without murmurs gallops or rubs. LUNGS: Clear to auscultation bilaterally without wheezes, rales or rhonchi. No retractions or accessory muscle use. ABDOMEN: Positive bowel sounds x 4. Soft, nontender, without masses or organomegaly. Navarrete sign negative. No guarding or rebound tenderness. MUSCULOSKELETAL: No muscle atrophy, erythema, or edema noted. Full range of motion without joint tenderness in all extremities. No tenderness to palpation. Normal gait. Strength 5/5 throughout. NEURO: Patient was alert and oriented to person place and time. No focal neurological deficits. An order was placed for continuous patternmaker all around. The monitor showed a normal sinus rhythm at a ventricular rate of 86 bpm, per my interpretation. EKG, per my interpretation: Normal sinus rhythm with ventricular rate of [address] elevation or depression. No T wave inversion. No significant change when compared to EKG completed 07/30/2017 EMERGENCY DEPARTMENT COURSE: The patient was seen and evaluated as above. Patient presents with left-sided chest pain and shortness of breath. The patient describes it as "an elephant sitting on my chest". The patient does have a history of RI with stents. She did injure the left ribs several weeks ago. Patient awoke with body aches and chills. She is complaining of some shortness of breath and there is intermittently wheezing/rhonchi on examination which seems to clear with movement and coughing Given the patient's history and physical examination we did elect to perform the above-mentioned work-up. IV access was obtained, labs were drawn. Patient was hydrated with IV fluids. Patient was medicated with acetaminophen Labs were reviewed. Per my interpretation, there was a leukocytosis of 17,000. No anemia or thrombocytopenia. INR 1.0. D-dimer was mildly elevated at 510. Renal, hepatic function and electrolytes without significant abnormality. Glucose was 203. Lipase 41. Procalcitonin less than 0.05 COVID-19, influenza, RSV testing is negative. Patient's blood glucose was elevated at 203. BNP was completed and was elevated at 185 Patient does not have any history of CHF. Chest x-ray was concerning for possible fluid overload/congestive change versus pneumonitis. Given the positive D-dimer and these abnormalities on chest x-ray, we did elect to perform CT imaging to evaluate for possible PE or other abnormality. CT scan was completed and was concerning for several incidental findings. CT scan without note of PE. There were subacute left anterior lateral sixth through eighth rib fractures. There was cardiomegaly with congestive failure. Peribronchial thickening suggestive of bronchitis or reactive airway disease which would fit the clinical picture. No evidence of consolidation or pleural effusion. There are pathologically enlarged mediastinal lymph nodes as well as mildly enlarged hilar lymph nodes which are new from 07/30/2017. Neoplasm is not excluded. The patient is a smoker and I am concerned for possible neoplasm and did discuss this with the patient. CT scan was concerning for advanced coronary artery atherosclerosis. There was also note of high-grade stenosis with near complete occlusion at the origin of the left internal carotid artery with only trace flow seen. I discussed the case with my attending physician. Given the extensive CT findings, the patient's risk factors including obesity, diabetes, vascular disease, and reports of sensation that "an elephant is sitting on her chest", we did recommend admission for chest pain rule out and to further evaluate the additional findings. The patient's care seems to be somewhat limited. It does appear that she spent some time in [place] and also spends time here. Uncertain of who her PCP is and how her care is being coordinated. I discussed the case with Bri Ohara PA-C with [facility] hospitalist group. She did agree to see and evaluate the patient. Please see hospitalist dictation regarding ongoing management care of this patient Differential diagnosis includes Cardiac ischemia, aortic dissection, pulmonary embolism, pneumothorax, pneumonia, pericarditis, myocarditis, esophageal rupture, GERD, cholecystitis, pancreatitis, musculoskeletal, as well as other pathologies. I attest that I have personally reviewed the patient's current medication list. Patient was found to have normal blood pressure on screening and does not require follow-up. The chart was completed utilizing [employer] Speech voice recognition software. Grammatical errors, random word insertions, pronoun errors, and incomplete sentences are an occasional consequence of this system due to software limitations, ambient noise, and hardware issues. Any formal questions or concerns about the content, text, or information contained within the body of this dictation should be directly addressed to the provider for clarification. Past Med/Surg History Medical History Dyslipidemia Diabetes mellitus Sepsis Surgical History (Updated 05/07/23 @ 15:52 by Yen Ohara PA-C) Status post incision and drainage bilateral buttocks S/P tubal ligation History of ankle surgery History of mandibular surgery S/P tonsillectomy Family History Uncle Colorectal cancer paternal Mother Ovarian cancer unsure if it was uterine cancer Sister Uterine cancer Denies family history of Breast cancer Social History Smoking Status: Current every day smoker Tobacco Type: Cigarettes Cigarettes Per Day: 10; Do You Dip or Chew Tobacco: No; Hx Alcohol Use: No Hx Substance Use: No Preferred Language: Egyptian Communication Ability: Effective Visual Impairment: Limited Hearing Ability: Normal Raiser Helper Required: No Beliefs That Will Affect Care: None marital status: Current Living Situation: Spouse Current Living Situation Comment: current occupational status: employed 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 Feels Safe at Home: Yes Diet: regular during the past year weight has: decreased > 10 lbs Assistive Devices: Denture - Upper and Glasses Allergies Allergies Allergy/AdvReac Type Severity Reaction Status Date / Time ibuprofen AdvReac Intermediate RASH Verified 12/03/21 09:38 naproxen AdvReac Intermediate rash Verified 12/03/21 09:38 Home Meds Home Medications Medication Instructions Recorded Confirmed aspirin 81 mg tablet,delayed 162 mg PO DAILY 05/07/23 05/07/23 release atorvastatin 80 mg tablet 80 mg PO DAILY 05/07/23 05/07/23 Results & Data (ED) Vital Signs Vital Signs - 24 hr 05/07/23 10:03 05/07/23 10:30 05/07/23 14:19 Temperature 36.3 C L Temperature Source Oral Pulse Rate 89 85 Pulse Rate [Apical] Pulse Rate [Right Finger] 84 Pulse Rhythm [Right Finger] Regular Pulse Strength [Right Finger] Normal Respiratory Rate 18 18 Respiratory Effort / Characteristics Non-Labored Respiratory Depth Normal Respiratory Pattern Regular Blood Pressure 103/62 Blood Pressure [Right Arm] 106/64 Blood Pressure Mean 75 Blood Pressure Mean [Right Arm] 78 Blood Pressure Position [Right Arm] Lying Pulse Oximetry 100 94 Oxygen Delivery Method Room Air Room Air Sepsis Recent Fever Within 48 Hours No Sepsis New/Unexplained Change in Mental Status No Sepsis Action Taken by Nursing No Action Required 05/07/23 14:29 05/07/23 16:15 Temperature Temperature Source Pulse Rate 81 Pulse Rate [Apical] 86 Pulse Rate [Right Finger] Pulse Rhythm [Right Finger] Pulse Strength [Right Finger] Respiratory Rate 17 Respiratory Effort / Characteristics Non-Labored Spontaneous Respiratory Depth Normal Respiratory Pattern Regular Blood Pressure Blood Pressure [Right Arm] 92/51 L Blood Pressure Mean Blood Pressure Mean [Right Arm] 64 Blood Pressure Position [Right Arm] Semi-fowlers Pulse Oximetry 95 Oxygen Delivery Method Room Air Sepsis Recent Fever Within 48 Hours Sepsis New/Unexplained Change in Mental Status Sepsis Action Taken by Nursing Laboratory Data 05/07/23 10:20 05/07/23 10:20 Lab Results 05/07/23 05/07/23 05/07/23 Range/Units 10:20 11:14 12:49 WBC 17.82 H (4.8-10.8) K/ul RBC 4.94 (4.20-5.40) M/uL Hgb 13.6 (12.0-16.0) g/dl Hct 42.4 (37.0-47.0) % MCV 85.8 (80.0-100.0) fL MCH 27.5 (25.0-34.0) pg MCHC 32.1 (32.0-36.0) g/dL RDW Std Deviation 44.9 (36.4-46.3) fL RDW Coeff of Won 14.3 (11.5-14.5) % Plt Count 303 (130-400) K/uL MPV 9.7 (9.4-12.4) fL Immature Gran % (Auto) 0.3 % Neut % (Auto) 81.0 % Lymph % (Auto) 10.6 % Placer % (Auto) 7.0 % Eos % (Auto) 0.8 % Baso % (Auto) 0.3 % Neut # (Auto) 14.42 H (1.40-6.50) K/uL Lymph # (Auto) 1.89 (1.20-3.40) K/uL Placer # (Auto) 1.24 H (0.11-0.59) K/uL Eos # (Auto) 0.15 (0.00-0.50) K/uL Baso # (Auto) 0.06 (0.00-0.20) K/uL Immature Gran # (Auto) 0.06 (0.01-0.20) K/uL PT 10.7 (9.0-12.0) Seconds INR 1.0 (0.9-1.1) APTT 28.5 (21.0-31.0) Seconds PTT Ratio 1.0 D-Dimer 510 H* (0-500) ug/L FEU Sodium 139 (136-145) mmol/L Potassium 3.8 (3.5-5.1) mmol/L Chloride 106 (98-107) mmol/L Carbon Dioxide 27 (21-32) mmol/L Anion Gap 6 (3-11) BUN 19 (6-23) mg/dl Creatinine 0.62 (0.6-1.2) mg/dl Est Cr Clr Drug Dosing 112.8 ml/min Est GFR ( Amer) 116.8 ml/min Est GFR (Non-Af Amer) 100.8 ml/min BUN/Creatinine Ratio 30.6 H (10-20) Glucose 203 H (70-99(Fasting)) mg/dl Calcium 8.9 (8.6-10.3) mg/dl Total Bilirubin 0.3 (0.2-1.0) mg/dl AST 12 L (13-39) U/L ALT 17 (7-52) U/L Alkaline Phosphatase 120 H (34-104) U/L Troponin I High Sens 5.9 (0-14) pg/ml B-Natriuretic Peptide 185 H (0-100) pg/ml Total Protein 7.3 (6.0-8.3) gm/dl Albumin 3.8 (3.4-5.0) gm/dl Globulin 3.5 (2.5-4.0) gm/dl Albumin/Globulin Ratio 1.1 (0.9-2) Lipase 41 (11-82) U/L Procalcitonin < 0.05 (0-0.5) ng/ml SARS-CoV-2 (PCR) NEGATIVE (Negative) Influenza Type A (PCR) Negative (Neg) Influenza Type B (PCR) Negative (Neg) RSV (RT-PCR) Negative (Neg) Administered Medications Discontinued Medications Sodium Chloride (Nss) 1,000 mls @ 999 mls/hr IV .Q1H1M ONE Stop: 05/07/23 11:58 Last Infusion: 05/07/23 12:24 Dose: Infused Documented By: Admin: 05/07/23 11:13 Dose: 999 mls/hr Documented By: SOL Acetaminophen (Ofirmev) 1,000 mg in 100 mls @ 400 mls/hr IV NOW STA Stop: 05/07/23 11:49 Last Infusion: 05/07/23 11:58 Dose: Infused Documented By: Admin: 05/07/23 11:43 Dose: 400 mls/hr Documented By: SOL Ioversol (Optiray 320 500ml) 112 ml IV ONCE ONE Stop: 05/07/23 14:36 Last Admin: 05/07/23 14:37 Dose: 112 ml Documented By: VERA Nicotine (Nicotine 21 Mg/24 Hr Tdsy) 21 mg TD NOW STA Stop: 05/07/23 15:31 Last Admin: 05/07/23 15:39 Dose: 21 mg Documented By: AB Imaging Data Radiologist's Impression: Chest X-Ray 05/07/23 10:58 SINGLE VIEW CHEST CLINICAL HISTORY: Atypical chest pain. FINDINGS: An AP, portable, upright chest radiograph is compared to study dated 04/27/2023 and correlated with chest CT dated 07/30/2017. The cardiac silhouette is enlarged. There is prominence of the pulmonary vasculature and interstitial thickening. Atelectasis is seen at the lung bases. No large pleural effusion or pneumothorax is identify. The skeletal structures are osteopenic. The bony thorax is grossly intact. IMPRESSION: 1. Enlarged cardiac silhouette with prominence of the pulmonary vasculature and interstitial thickening. Correlate clinically for evidence of fluid overload/congestive change. A pneumonitis could appear similar. Radiographic follow-up resolution is recommended. 2. No large pleural effusion is identified. ACT 112: Negative or not required by law. Electronically signed by: Efren Nielsen M.D. 05/07/2023 11:52 AM Chest CTA 05/07/23 12:18 CT ANGIOGRAM OF THE CHEST CLINICAL HISTORY: Dyspnea. Elevated d-dimer. Left-sided chest wall pain. COMPARISON STUDY: Chest CT dated 07/30/2017. Chest x-ray dated 05/07/2023. TECHNIQUE: Following the IV administration of 112 cc of Optiray 320, CT angiogram of the chest was performed from the upper abdomen to the thoracic inlet utilizing the pulmonary embolus protocol. Images are reviewed in the axial, sagittal, and coronal planes. 3-D MIPS images are created and assessed. IV contrast was administered without complication. A dose lowering technique was utilized adhering to the principles of ALARA. CT DOSE: 946.85 mGy.cm FINDINGS: Thyroid: Imaged portions of the thyroid gland are normal in size and attenuation. Thoracic aorta: There is atherosclerotic calcification of the thoracic aorta, which is normal in caliber and demonstrates standard 3-vessel arch anatomy. There is no evidence of dissection. There is high-grade stenosis and a complete occlusion of the origin of the left internal carotid artery seen on image #177. Only trace flow is identified. There is moderate stenosis of the origin of the left subclavian artery. Pulmonary vasculature: The pulmonary trunk is normal in caliber. There are no filling defects identified in main, lobar, or segmental pulmonary branches to suggest pulmonary embolus. Heart: The heart is enlarged noting trace pericardial effusion. The coronary arteries are densely calcified. Lungs and pleural spaces: Intralobular septal thickening is seen throughout both lungs. No lobar consolidation or pleural effusion is identified. Foci of parenchymal scarring are seen in both lungs, with dependent atelectasis at the lung bases. The trachea and central airways are clear. A 4 mm left lower lobe pulmonary nodule image 132 is also seen in 2018. There are scattered calcified granulomas. Diffuse peribronchial thickening is observed. Mediastinum: There is mediastinal lymphadenopathy. A right paratracheal node on image #167 measures 2.5 x 1.7 cm. A subcarinal node on image #139 measures 4.0 x 2.0 cm. Lindsay: There are mildly enlarged hilar nodes. These measure up to 1.1 cm in short axis. Axillae: There is no axillary lymphadenopathy. Upper abdomen: There is a small hiatal hernia. Partially visualized upper abdominal viscera is within normal limits. Skeletal structures: The skeletal structures are osteopenic. No lytic or blastic bony lesions are seen. There are late subacute appearing right anterior rib fractures. There are early subacute appearing left anterolateral 6th through 8th rib fractures. IMPRESSION: 1. There is no evidence of pulmonary embolus in the main, lobar, or segmental pulmonary arteries. 2. There are early subacute appearing left anterolateral 6th through 8th rib fractures. Older subacute appearing rib fractures are seen on the right. Correlate clinically. 3. Cardiomegaly with evidence of congestive failure. 4. Diffuse peribronchial thickening suggests bronchitis/reactive airway disease. Correlate clinically. 5. There is no lobar consolidation or pleural effusion. 6. There are pathologically enlarged mediastinal lymph nodes as well as mildly enlarged hilar nodes. This is new from 07/30/2017. These are indeterminant and may be reactive. Neoplasm is not excluded. A follow-up chest CT in several months time is recommended for evaluation. 7. Advanced coronary artery atherosclerosis. 8. There is high-grade stenosis with near complete occlusion at the origin of the left internal carotid artery. Only trace flow is seen. There is also moderate stenosis at the origin of the left subclavian artery. 9. Additional findings as above. ACT 112: Positive. There are findings on this exam that require communication between the performing entity and the patient following Patient Test Result Information Act ([place] Act 112) guidelines. Electronically signed by: Efren Nielsen M.D. 05/07/2023 3:01 PM Discharge Plan Visit Data Chief Complaint: Cardiac Assessment Stated Complaint: CHEST PAIN,SOB, ED Provider: Edward Orellana ED Midlevel Provider: Megha Garcia Discharge Problem: Chest pain, Tobacco abuse, Type II diabetes mellitus, Dyspnea Patient Disposition: Admitted As Inpatient Forms Stand Alone Forms: [employer] Prescriptions Prescriptions: No Action aspirin [Aspir-81] 81 mg Tablet,Delayed Release (Dr/Ec) 162 mg PO DAILY Rx Instructions: 2 tabs atorvastatin 80 mg Tablet 80 mg PO DAILY Referrals Referrals: PCP,NO [Primary Care Provider] -
--- NOTE | 2023-05-07 13:09 | Electrocardiogram Report ---
Test Reason : Blood Pressure : / mmHG Vent. Rate : 082 BPM Atrial Rate : 082 BPM P-R Int : 158 ms QRS Dur : 100 ms QT Int : 390 ms P-R-T Axes : 012 036 031 degrees QTc Int : 455 ms Normal sinus rhythm Normal ECG When compared with ECG of 30-JUL-2017 21:42, No significant change was found Confirmed by Jose Muniz ([id number]) on 05/07/2023 1:09:21 PM Referred By: REFERRED SELF Confirmed By:Jose Muniz
[2023-05-07] MEDS ORDERED: OPTIRAY 320 500ml IV ONE (14:35)
--- NOTE | 2023-05-07 15:03 | CT Scan Report ---
CT ANGIOGRAM OF THE CHEST CLINICAL HISTORY: Dyspnea. Elevated d-dimer. Left-sided chest wall pain. COMPARISON STUDY: Chest CT dated 07/30/2017. Chest x-ray dated 05/07/2023. TECHNIQUE: Following the IV administration of 112 cc of Optiray 320, CT angiogram of the chest was pe rformed from the upper abdomen to the thoracic inlet utilizing the pulmonary embolus protocol. Images are reviewed in the axial, sagittal, and coronal planes. 3-D MIPS images are created and assessed. I V contrast was administered without complication. A dose lowering technique was utilized adhering to the principles of ALARA. CT DOSE: 946.85 mGy.cm FINDINGS: Thyroid: Imaged portions of the thyroid gland are normal in size and attenuation. Thoracic aorta: There is atherosclerotic calcification of the thoracic aorta, which is normal in marleny riaz and demonstrates standard 3-vessel arch anatomy. There is no evidence of dissection. There is hig h-grade stenosis and a complete occlusion of the origin of the left internal carotid artery seen on i mage #177. Only trace flow is identified. There is moderate stenosis of the origin of the left subcla vian artery. Pulmonary vasculature: The pulmonary trunk is normal in caliber. There are no filling defects identif ied in main, lobar, or segmental pulmonary branches to suggest pulmonary embolus. Heart: The heart is enlarged noting trace pericardial effusion. The coronary arteries are densely neel cified. Lungs and pleural spaces: Intralobular septal thickening is seen throughout both lungs. No lobar cons olidation or pleural effusion is identified. Foci of parenchymal scarring are seen in both lungs, wit h dependent atelectasis at the lung bases. The trachea and central airways are clear. A 4 mm left low er lobe pulmonary nodule image 132 is also seen in 2018. There are scattered calcified granulomas. Di ffuse peribronchial thickening is observed. Mediastinum: There is mediastinal lymphadenopathy. A right paratracheal node on image #167 measures 2 .5 x 1.7 cm. A subcarinal node on image #139 measures 4.0 x 2.0 cm. Lindsay: There are mildly enlarged hilar nodes. These measure up to 1.1 cm in short axis. Axillae: There is no axillary lymphadenopathy. Upper abdomen: There is a small hiatal hernia. Partially visualized upper abdominal viscera is within normal limits. Skeletal structures: The skeletal structures are osteopenic. No lytic or blastic bony lesions are see n. There are late subacute appearing right anterior rib fractures. There are early subacute appearing left anterolateral 6th through 8th rib fractures. IMPRESSION: 1. There is no evidence of pulmonary embolus in the main, lobar, or segmental pulmonary arteries. 2. There are early subacute appearing left anterolateral 6th through 8th rib fractures. Older subacut e appearing rib fractures are seen on the right. Correlate clinically. 3. Cardiomegaly with evidence of congestive failure. 4. Diffuse peribronchial thickening suggests bronchitis/reactive airway disease. Correlate clinically . 5. There is no lobar consolidation or pleural effusion. 6. There are pathologically enlarged mediastinal lymph nodes as well as mildly enlarged hilar nodes. This is new from 07/30/2017. These are indeterminant and may be reactive. Neoplasm is not excluded. A f ollow-up chest CT in several months time is recommended for evaluation. 7. Advanced coronary artery atherosclerosis. 8. There is high-grade stenosis with near complete occlusion at the origin of the left internal carot id artery. Only trace flow is seen. There is also moderate stenosis at the origin of the left subclav bárbara artery. 9. Additional findings as above. ACT 112: Positive. There are findings on this exam that require communication between the performing entity and the patient following Patient Test Result Information Act ([place] Act 112) guidelines. Electronically signed by: Efren Nielsen M.D. 05/07/2023 3:01 PM
[2023-05-07] MEDS ORDERED: NICOTINE 21 MG/24 HR TDSY TD STA (15:30)
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
[2023-05-07] MEDS ORDERED: ASPIRIN 81 MG CHEW PO STA (16:46)
[2023-05-07] MEDS ORDERED: DEXTROSE 50% 50 ML SYRINGE IV PRN (17:13)
[2023-05-07] MEDS ORDERED: GLUCAGON FOR INJ 1 MG VIAL SQ PRN (17:13)
[2023-05-07] MEDS ORDERED: POLYETHYLENE (MIRALAX) 17 GM PACK PO PRN (17:13)
[2023-05-07] MEDS ORDERED: GLUCOSE 10 TAB/TUBE PO PRN (17:13)
[2023-05-07] MEDS ORDERED: GLUCOSE 40% GEL 15 GM TUBE PO PRN (17:13)
[2023-05-07] MEDS ORDERED: ONDANSETRON INJ 2 MG/ML 2 ML VIAL IV PRN (17:13)
[2023-05-07] MEDS ORDERED: CARBOHYDRATES FOR HYPOGLYCEMIA PO PRN (17:13)
[2023-05-07] MEDS ORDERED: NITROGLYCERIN SL 0.4 MG/TAB TAB SL PRN (17:13)
[2023-05-07] MEDS ORDERED: SODIUM CHLORIDE 0.9% 500 ML IV ONE (17:16)
[2023-05-07] MEDS ORDERED: PROMETHAZINE HCL 12.5 MG in SODIUM CHLORIDE 0.9% 50 ML IV PRN (17:18)
[2023-05-07] MEDS: AZITHROMYCIN 500 MG in DEXTROSE 5% 250 ML IV SCH (18:25)
[2023-05-07] MEDS: ALBUT/IPRATROP 3MG/0.5MG NEB 3 ML VIAL NEB SCH (19:40)
[2023-05-07] MEDS ORDERED: INSULIN ASPART PER UNIT CHARGE SC SCH (21:00)
[2023-05-07] MEDS: HEPARIN SOD 5,000 UNIT/0.5 ML VIAL SQ SCH (21:04)
[2023-05-07] MEDS: LANTUS PER UNIT CHARGE SQ SCH (21:05)
[2023-05-08 04:47] LABS: Basophils # (auto) 0.03 K/uL (0.00-0.20); Basophils % (auto) 0.3 %; Eosinophils # (auto) 0.27 K/uL (0.00-0.50); Eosinophils % (auto) 2.3 %; Hematocrit (blood only) 38.3 % (37.0-47.0); Hemoglobin 12.1 g/dl (12.0-16.0); Immature Granulocytes # (auto) 0.04 K/uL (0.01-0.20); Immature Granulocytes % (auto) 0.3 %; Lymphocytes # (auto) 2.45 K/uL (1.20-3.40); Lymphocytes % (auto) 21.3 %; Mean Corpuscular Hemoglobin 27.3 pg (25.0-34.0); Mean Corpuscular Hgb Conc 31.6 g/dL (32.0-36.0); Mean Corpuscular Volume 86.3 fL (80.0-100.0); Mean Platelet Volume 9.7 fL (9.4-12.4); Monocytes # (auto) 1.28 K/uL (0.11-0.59); Monocytes % (auto) 11.1 %; Neutrophils # (auto) 7.42 K/uL (1.40-6.50); Neutrophils % (auto) 64.7 %; Platelet Count 241 K/uL (130-400); RDW Coefficient of Variation 14.3 % (11.5-14.5); RDW Standard Deviation 45.3 fL (36.4-46.3); Red Blood Count 4.44 M/uL (4.20-5.40); White Blood Count 11.49 K/ul (4.8-10.8)
[2023-05-08 05:04] LABS: BUN Creatinine Ratio 28.6 (10-20); Calcium 8.6 mg/dl (8.6-10.3); Chol HDL Ratio 2.9 (0-5); Creatinine Clr Calc Pharmacy 144.2 ml/min; Est GFR (African American) 126.2 ml/min; Est GFR (Non-African American) 108.9 ml/min
[2023-05-08] MEDS: INSULIN ASPART PER UNIT CHARGE SC SCH ×5 (05:07→21:33)
[2023-05-08 06:53] LABS: Appearance Urine Clear (Clear); Bilirubin Urine Negative (Negative); Blood Urine Negative (Negative); Color Urine Yellow; Glucose Urine UA 1+ (Negative); Ketones Urine Negative (Negative); Leukocyte Esterase Urine Negative (Negative); Nitrite Urine Negative (Negative); Protein Urine Negative (Negative); Specific Gravity Urine 1.025 (1.000-1.030); Urobilinogen Urine Negative (Negative)
--- NOTE | 2023-05-08 07:03 | Ultrasound Report ---
CAROTID ARTERY ULTRASOUND CLINICAL HISTORY: increased carotid disease from prior us COMPARISON STUDY: Carotid ultrasound March 01, 2019. CTA of the chest May 07, 2023. TECHNIQUE: Real-time, grayscale, and color Doppler sonography of the carotid and vertebral arteries w as performed. Images were viewed in the transverse and longitudinal planes. FINDINGS: There is moderate plaque within the proximal right internal carotid artery without elevated velocity to suggest a hemodynamically significant stenosis. There is extensive plaque within the lef t internal carotid artery. No flow is identified within the mid to distal left internal carotid arter y. This could be due to vessel occlusion or significant severe stenosis with trace flow. The bilatera l vertebrals are patent with antegrade flow. IMPRESSION: 1. Extensive plaque within the left internal carotid artery with no flow identified within the mid to distal left internal carotid artery. This could be due to vessel occlusion or severe stenosis with t race flow. CTA of the neck is recommended for further evaluation. 2. No evidence for a hemodynamically significant stenosis within the right internal carotid artery. ACT 112: Negative or not required by law. Electronically signed by: Attila Harrison M.D. 05/08/2023 7:01 AM
[2023-05-08 07:13] LABS: Estimated Average Glucose 148 mg/dl; Hemoglobin A1C 6.8 % (4.5-5.6)
[2023-05-08 07:18] LABS: Amphetamines+Metham, Urine Pos (Neg); Barbiturates, Urine Neg (Neg); Benzodiazepine, Urine Neg (Neg); Cocaine, Urine Neg (Neg); MDMA (Ecstacy), Urine Pos (Neg); Methadone, Urine Neg (Neg); Opiate, Urine Neg (Neg); Phencyclidine, Urine Neg (Neg)
[2023-05-08] MEDS: ALBUT/IPRATROP 3MG/0.5MG NEB 3 ML VIAL NEB SCH ×4 (07:41→19:35)
--- NOTE | 2023-05-08 07:54 | Hospitalist Progress Note ---
Date of Service May 08, 2023 Assessment & Plan (1) Chest pain: (2) CAD (coronary artery disease): Plan: Patient is 57 y/o F with PMH CAD s/p stent, HLD, DM II, COPD, tobacco use presented to ER with complaint of chest pain with inspiration In ER vitals stable. D-Dimer: 510. Initial HS troponin negative. EKG: sinus rhythm, no ST elevation CTA chest: No PE, Cardiomegaly with evidence of congestive failure, Advanced coronary artery atherosclerosis. R/O ACS. Risk factors: CAD, HLD, DM, obesity, tobacco use Trended troponin Echo ordered (read pending) LDL 72, continue atorvastatin 80 daily Continue aspirin Cardiology consulted and discussed with. Echo pending and discussed need to discuss w/ vasc. surg. occluded ICA DDX: bronchitis WBC: 17. Negative COVID-19, influenza, RSV PCR. Negative procalcitonin CTA chest: Diffuse peribronchial thickening suggests bronchitis/reactive airway disease. There is no lobar consolidation or pleural effusion. DuoNebs Incentive spirometry Zithromax (3) Abnormal CT scan, chest: Plan: Medistinal Lymph Nodes: CTA Chest: There are pathologically enlarged mediastinal lymph nodes as well as mildly enlarged hilar nodes. This is new from 07/30/2017. These are indeterminant and may be reactive. Neoplasm is not excluded. Will need follow-up chest CT in several months time is recommended for evaluation. Carotid artery stenosis: CTA Chest: There is high-grade stenosis with near complete occlusion at the origin of the left internal carotid artery. Only trace flow is seen. There is also moderate stenosis at the origin of the left subclavian artery. carotid Doppler to further assess obtained - 1. Extensive plaque within the left internal carotid artery with no flow identified within the mid to distal left internal carotid artery. This could be due to vessel occlusion or severe stenosis with trace flow. CTA of the neck is recommended for further evaluation. 2. No evidence for a hemodynamically significant stenosis within the right internal carotid artery. Pushed images to [facility] for review and discussed w/ vasc. surgery (Dr. Carroll) - Occluded Left ICA. Treat medically - ASA, statin, HTN control. Follow up with carotid doppler every 2-3 yrs. (4) Ribs, multiple fractures: Plan: CTA chest: subacute appearing left anterolateral 6th through 8th rib fractures. Older subacute appearing rib fractures are seen on the right History chest wall injury on dumpster several weeks ago Incentive spirometry (5) Type II diabetes mellitus: Plan: Current Hgb A1c 6.8% Previously on oral glycemic agents and self discontinued SSI (6) Dyslipidemia: Plan: Continue atorvastatin (7) COPD (chronic obstructive pulmonary disease): Plan: Previously prescribed inhalers Duonebs May need to consider restarting inhalers (8) Tobacco use: Plan: 1ppd Not interested in smoking cessation Nicotine patch DVT Prophylaxis Heparin SQ Full Code as per discussion with pt, however if poor prognosis does not want prolonged life support Does not follows with PCP for routine care Admission and Anticipated Discharge Date Admission Date: May 07, 2023 Subjective Pt seen in follow up of chest pain Currently sitting up in bed in NAD. Describes substernal pain w/ inspiration, overall improved since coming to the hospital No fever, chills, shortness of breath,abd. pain. Pt is a smoker. Bronchitis found on CT and pt started on Abx. Echo obtained (read pending) and cardiology consulted - discussed w/ cardiology - need eval by vasc surg. occlusion of ICA Images pushed to [facility] and discussed w/ vasc. surg - cont. ASA, statin, HTN control Review of Systems Review of Systems: All systems reviewed & are unremarkable except as noted in Subjective Physical Exam Physical Exam: General: WD/WN F in NAD Head: normo cephalic, atraumat ic Eyes: conjuncti va non-injected, a nicteric ENT: norm al inspection exte rnal ears, nose, m ucous membranes mo ist Neck: supple, trachea midline Sharee ngs: no respirator y distress, CTAB n o rhonchi/rales no jose armando Chest wall: +t enderness palpatio n left lateral low er ribs CV: RRR, + syst. murmur, no p retibial edema Abd : normal BS, soft, non-tender Ext: n o calf tenderness, moves extremities Neuro: A&O x 3, s peech fluent, no f acial asymmetry, m oves extremities S kin: warm, dry Results & Data Results & Data Vital Signs (Past 12 Hours) Vital Signs Temp Pulse Pulse Pulse Resp BP Pulse Ox 05/08/23 07:41 81 16 97 05/08/23 03:56 36.9 C 88 18 93/60 L 96 11/11/23 00:00 81 05/07/23 23:00 36.7 C 89 18 90/54 L 97 05/07/23 21:00 05/07/23 20:11 36.7 C 88 18 99/65 L 98 O2 Del Method 05/08/23 07:41 Room Air 05/08/23 03:56 Room Air 05/08/23 00:00 05/07/23 23:00 Room Air 05/07/23 21:00 Room Air 05/07/23 20:11 Room Air Laboratory Results 05/08/23 05/08/23 05/07/23 Range/Units 06:00 04:12 22:16 WBC 11.49 H (4.8-10.8) K/ul RBC 4.44 (4.20-5.40) M/uL Hgb 12.1 (12.0-16.0) g/dl Hct 38.3 (37.0-47.0) % MCV 86.3 (80.0-100.0) fL MCH 27.3 (25.0-34.0) pg MCHC 31.6 L (32.0-36.0) g/dL RDW Std Deviation 45.3 (36.4-46.3) fL RDW Coeff of Won 14.3 (11.5-14.5) % Plt Count 241 (130-400) K/uL MPV 9.7 (9.4-12.4) fL Immature Gran % (Auto) 0.3 % Neut % (Auto) 64.7 % Lymph % (Auto) 21.3 % Nelson % (Auto) 11.1 % Eos % (Auto) 2.3 % Baso % (Auto) 0.3 % Neut # (Auto) 7.42 H (1.40-6.50) K/uL Lymph # (Auto) 2.45 (1.20-3.40) K/uL Nelson # (Auto) 1.28 H (0.11-0.59) K/uL Eos # (Auto) 0.27 (0.00-0.50) K/uL Baso # (Auto) 0.03 (0.00-0.20) K/uL Immature Gran # (Auto) 0.04 (0.01-0.20) K/uL PT (9.0-12.0) Seconds INR (0.9-1.1) APTT (21.0-31.0) Seconds PTT Ratio D-Dimer (0-500) ug/L FEU Sodium 138 (136-145) mmol/L Potassium 4.0 (3.5-5.1) mmol/L Chloride 109 H (98-107) mmol/L Carbon Dioxide 23 (21-32) mmol/L Anion Gap 6 (3-11) BUN 14 (6-23) mg/dl Creatinine 0.49 L (0.6-1.2) mg/dl Est Cr Clr Drug Dosing 144.2 ml/min Est GFR ( Amer) 126.2 ml/min Est GFR (Non-Af Amer) 108.9 ml/min BUN/Creatinine Ratio 28.6 H (10-20) Glucose 150 H (70-99(Fasting)) mg/dl POC Glucose (70-99) mg/dl Estimat Average Glucose 148 mg/dl Hemoglobin A1c 6.8 H (4.5-5.6) % Calcium 8.6 (8.6-10.3) mg/dl Total Bilirubin (0.2-1.0) mg/dl AST (13-39) U/L ALT (7-52) U/L Alkaline Phosphatase (34-104) U/L Troponin I High Sens 8.5 6.4 (0-14) pg/ml B-Natriuretic Peptide (0-100) pg/ml Total Protein (6.0-8.3) gm/dl Albumin (3.4-5.0) gm/dl Globulin (2.5-4.0) gm/dl Albumin/Globulin Ratio (0.9-2) Triglycerides 78 (0-150) mg/dl Cholesterol 134 (0-200) mg/dl LDL Cholesterol, Calc 72 mg/dl VLDL Cholesterol, Calc 16 (0-30) mg/dl HDL Cholesterol 46 mg/dl Cholesterol/HDL Ratio 2.9 (0-5) Lipase (11-82) U/L Procalcitonin (0-0.5) ng/ml Urine Color Yellow Urine Appearance Clear (Clear) Urine pH 6.0 (4.5-7.5) Ur Specific Vista 1.025 (1.000-1.030) Urine Protein Negative (Negative) Urine Glucose (UA) 1+ H (Negative) Urine Ketones Negative (Negative) Urine Blood Negative (Negative) Urine Nitrite Negative (Negative) Urine Bilirubin Negative (Negative) Urine Urobilinogen Negative (Negative) Ur Leukocyte Esterase Negative (Negative) Urine Opiates Screen Neg (Neg) Ur Methadone, Qual Neg (Neg) Urine Barbiturates Neg (Neg) Ur Phencyclidine (PCP) Neg (Neg) U Amphetamines Confirm Pending U Amphetamin/Meth Scrn Pos H (Neg) U Methamphetamin Confrm Pending Urine MDEA Pending MDMA (Ecstasy) Screen Pos H (Neg) MDMA Pending Urine MDMA Pending U Benzodiazepines Scrn Neg (Neg) Ur Cocaine Metabolite Neg (Neg) U Marijuana (THC) Screen Pos H (Neg) U Marijuana THC Carboxy Pending Drug Screen Comment Pending SARS-CoV-2 (PCR) (Negative) Influenza Type A (PCR) (Neg) Influenza Type B (PCR) (Neg) RSV (RT-PCR) (Neg) 05/07/23 05/07/23 05/07/23 Range/Units 19:57 17:33 16:59 WBC (4.8-10.8) K/ul RBC (4.20-5.40) M/uL Hgb (12.0-16.0) g/dl Hct (37.0-47.0) % MCV (80.0-100.0) fL MCH (25.0-34.0) pg MCHC (32.0-36.0) g/dL RDW Std Deviation (36.4-46.3) fL RDW Coeff of Won (11.5-14.5) % Plt Count (130-400) K/uL MPV (9.4-12.4) fL Immature Gran % (Auto) % Neut % (Auto) % Lymph % (Auto) % Nelson % (Auto) % Eos % (Auto) % Baso % (Auto) % Neut # (Auto) (1.40-6.50) K/uL Lymph # (Auto) (1.20-3.40) K/uL Nelson # (Auto) (0.11-0.59) K/uL Eos # (Auto) (0.00-0.50) K/uL Baso # (Auto) (0.00-0.20) K/uL Immature Gran # (Auto) (0.01-0.20) K/uL PT (9.0-12.0) Seconds INR (0.9-1.1) APTT (21.0-31.0) Seconds PTT Ratio D-Dimer (0-500) ug/L FEU Sodium (136-145) mmol/L Potassium (3.5-5.1) mmol/L Chloride (98-107) mmol/L Carbon Dioxide (21-32) mmol/L Anion Gap (3-11) BUN (6-23) mg/dl Creatinine (0.6-1.2) mg/dl Est Cr Clr Drug Dosing ml/min Est GFR ( Amer) ml/min Est GFR (Non-Af Amer) ml/min BUN/Creatinine Ratio (10-20) Glucose (70-99(Fasting)) mg/dl POC Glucose 187 H 137 H (70-99) mg/dl Estimat Average Glucose mg/dl Hemoglobin A1c (4.5-5.6) % Calcium (8.6-10.3) mg/dl Total Bilirubin (0.2-1.0) mg/dl AST (13-39) U/L ALT (7-52) U/L Alkaline Phosphatase (34-104) U/L Troponin I High Sens 10.2 D (0-14) pg/ml B-Natriuretic Peptide (0-100) pg/ml Total Protein (6.0-8.3) gm/dl Albumin (3.4-5.0) gm/dl Globulin (2.5-4.0) gm/dl Albumin/Globulin Ratio (0.9-2) Triglycerides (0-150) mg/dl Cholesterol (0-200) mg/dl LDL Cholesterol, Calc mg/dl VLDL Cholesterol, Calc (0-30) mg/dl HDL Cholesterol mg/dl Cholesterol/HDL Ratio (0-5) Lipase (11-82) U/L Procalcitonin (0-0.5) ng/ml Urine Color Urine Appearance (Clear) Urine pH (4.5-7.5) Ur Specific Vista (1.000-1.030) Urine Protein (Negative) Urine Glucose (UA) (Negative) Urine Ketones (Negative) Urine Blood (Negative) Urine Nitrite (Negative) Urine Bilirubin (Negative) Urine Urobilinogen (Negative) Ur Leukocyte Esterase (Negative) Urine Opiates Screen (Neg) Ur Methadone, Qual (Neg) Urine Barbiturates (Neg) Ur Phencyclidine (PCP) (Neg) U Amphetamines Confirm U Amphetamin/Meth Scrn (Neg) U Methamphetamin Confrm Urine MDEA MDMA (Ecstasy) Screen (Neg) MDMA Urine MDMA U Benzodiazepines Scrn (Neg) Ur Cocaine Metabolite (Neg) U Marijuana (THC) Screen (Neg) U Marijuana THC Carboxy Drug Screen Comment SARS-CoV-2 (PCR) (Negative) Influenza Type A (PCR) (Neg) Influenza Type B (PCR) (Neg) RSV (RT-PCR) (Neg) 05/07/23 05/07/23 05/07/23 Range/Units 12:49 11:14 10:20 WBC 17.82 H (4.8-10.8) K/ul RBC 4.94 (4.20-5.40) M/uL Hgb 13.6 (12.0-16.0) g/dl Hct 42.4 (37.0-47.0) % MCV 85.8 (80.0-100.0) fL MCH 27.5 (25.0-34.0) pg MCHC 32.1 (32.0-36.0) g/dL RDW Std Deviation 44.9 (36.4-46.3) fL RDW Coeff of Won 14.3 (11.5-14.5) % Plt Count 303 (130-400) K/uL MPV 9.7 (9.4-12.4) fL Immature Gran % (Auto) 0.3 % Neut % (Auto) 81.0 % Lymph % (Auto) 10.6 % Nelson % (Auto) 7.0 % Eos % (Auto) 0.8 % Baso % (Auto) 0.3 % Neut # (Auto) 14.42 H (1.40-6.50) K/uL Lymph # (Auto) 1.89 (1.20-3.40) K/uL Nelson # (Auto) 1.24 H (0.11-0.59) K/uL Eos # (Auto) 0.15 (0.00-0.50) K/uL Baso # (Auto) 0.06 (0.00-0.20) K/uL Immature Gran # (Auto) 0.06 (0.01-0.20) K/uL PT 10.7 (9.0-12.0) Seconds INR 1.0 (0.9-1.1) APTT 28.5 (21.0-31.0) Seconds PTT Ratio 1.0 D-Dimer 510 H* (0-500) ug/L FEU Sodium 139 (136-145) mmol/L Potassium 3.8 (3.5-5.1) mmol/L Chloride 106 (98-107) mmol/L Carbon Dioxide 27 (21-32) mmol/L Anion Gap 6 (3-11) BUN 19 (6-23) mg/dl Creatinine 0.62 (0.6-1.2) mg/dl Est Cr Clr Drug Dosing 112.8 ml/min Est GFR ( Amer) 116.8 ml/min Est GFR (Non-Af Amer) 100.8 ml/min BUN/Creatinine Ratio 30.6 H (10-20) Glucose 203 H (70-99(Fasting)) mg/dl POC Glucose (70-99) mg/dl Estimat Average Glucose mg/dl Hemoglobin A1c (4.5-5.6) % Calcium 8.9 (8.6-10.3) mg/dl Total Bilirubin 0.3 (0.2-1.0) mg/dl AST 12 L (13-39) U/L ALT 17 (7-52) U/L Alkaline Phosphatase 120 H (34-104) U/L Troponin I High Sens 5.9 (0-14) pg/ml B-Natriuretic Peptide 185 H (0-100) pg/ml Total Protein 7.3 (6.0-8.3) gm/dl Albumin 3.8 (3.4-5.0) gm/dl Globulin 3.5 (2.5-4.0) gm/dl Albumin/Globulin Ratio 1.1 (0.9-2) Triglycerides (0-150) mg/dl Cholesterol (0-200) mg/dl LDL Cholesterol, Calc mg/dl VLDL Cholesterol, Calc (0-30) mg/dl HDL Cholesterol mg/dl Cholesterol/HDL Ratio (0-5) Lipase 41 (11-82) U/L Procalcitonin < 0.05 (0-0.5) ng/ml Urine Color Urine Appearance (Clear) Urine pH (4.5-7.5) Ur Specific Vista (1.000-1.030) Urine Protein (Negative) Urine Glucose (UA) (Negative) Urine Ketones (Negative) Urine Blood (Negative) Urine Nitrite (Negative) Urine Bilirubin (Negative) Urine Urobilinogen (Negative) Ur Leukocyte Esterase (Negative) Urine Opiates Screen (Neg) Ur Methadone, Qual (Neg) Urine Barbiturates (Neg) Ur Phencyclidine (PCP) (Neg) U Amphetamines Confirm U Amphetamin/Meth Scrn (Neg) U Methamphetamin Confrm Urine MDEA MDMA (Ecstasy) Screen (Neg) MDMA Urine MDMA U Benzodiazepines Scrn (Neg) Ur Cocaine Metabolite (Neg) U Marijuana (THC) Screen (Neg) U Marijuana THC Carboxy Drug Screen Comment SARS-CoV-2 (PCR) NEGATIVE (Negative) Influenza Type A (PCR) Negative (Neg) Influenza Type B (PCR) Negative (Neg) RSV (RT-PCR) Negative (Neg) Medications Administered Current Inpatient Medications Acetaminophen (Acetaminophen 325 Mg Tab) 650 mg PO Q4H PRN PRN Reason: Pain or Fever Stop: 06/06/23 17:12 Albuterol (Albut/Ipratrop 3mg/0.5mg Neb 3 Ml Vial) 3 ml NEB QIDR BUDDY; Protocol Stop: 06/06/23 18:59 Last Admin: 05/08/23 07:41 Dose: 3 ml Aspirin (Aspirin 81 Mg Ectab) 81 mg PO DAILY BUDDY Stop: 06/07/23 08:59 Atorvastatin Calcium (Atorvastatin 40 Mg Tab) 80 mg PO DAILY BUDDY Stop: 06/07/23 08:59 Dextrose (Dextrose 50% 50 Ml Syringe) 25 - 50 ml IV UD PRN; Protocol PRN Reason: Hypoglycemia Protocol Stop: 06/06/23 17:12 Glucagon (Glucagon For Inj 1 Mg Vial) 1 mg SQ UD PRN; Protocol PRN Reason: Hypoglycemia Protocol Stop: 06/06/23 17:12 Glucose (Glucose 10 Tab/Tube) 4 - 8 tab PO UD PRN; Protocol PRN Reason: Hypoglycemia Treatment Stop: 06/06/23 17:12 Glucose (Glucose 40% Gel 15 Gm Tube) 15 - 30 gm PO UD PRN; Protocol PRN Reason: Hypoglycemia Protocol Stop: 06/06/23 17:12 Heparin Sodium (Porcine) (Heparin Sod 5,000 Unit/0.5 Ml Vial) 5,000 units SQ Q12 [facility] Stop: 06/06/23 20:59 Last Admin: 05/07/23 21:04 Dose: 5,000 units Azithromycin 500 mg/ Dextrose 255 mls @ 125 mls/hr IV DAILY [facility] Stop: 05/14/23 17:29 Last Infusion: 05/07/23 21:05 Dose: Infused Promethazine HCl 12.5 mg/ (Sodium Chloride) 50.5 mls @ 202 mls/hr IV Q6H PRN PRN Reason: Nausea And Vomiting Stop: 06/06/23 17:17 Influenza Virus Vaccine Quadrival (Influenza Virus Quadrivalent Vaccine (Iiv4) 0.5 Ml Syr) 0.5 ml IM .ONCE ONE Stop: 05/08/23 08:01 Insulin Aspart (Insulin Aspart Per Unit Charge) 0 units SC Q6 [facility] Stop: 06/07/23 05:59 Last Admin: 05/08/23 05:07 Dose: Not Given Insulin Glargine (Lantus Per Unit Charge) 0 units SQ BID [facility]; Protocol Stop: 06/06/23 20:59 Last Admin: 05/07/23 21:05 Dose: Not Given Miscellaneous (Carbohydrates For Hypoglycemia ) 15 - 30 gm PO UD PRN PRN Reason: Hypoglycemia Protocol Stop: 06/06/23 17:12 Miscellaneous (Remove Nicoderm Patch) 1 each N/A DAILY@0859 [facility] Stop: 06/07/23 08:58 Nicotine (Nicotine 21 Mg/24 Hr Tdsy) 21 mg TD QAM [facility] Stop: 06/07/23 08:59 Nitroglycerin (Nitroglycerin Sl 0.4 Mg/Tab Tab) 0.4 mg SL Q5M PRN PRN Reason: Chest Pain Stop: 06/06/23 17:12 Polyethylene Glycol (Polyethylene (Miralax) 17 Gm Pack) 17 gm PO DAILY PRN PRN Reason: Constipation Stop: 06/06/23 17:12
[2023-05-08] MEDS ORDERED: INFLUENZA VIRUS QUADRIVALENT VACCINE (IIV4) 0.5 ML SYR IM ONE (08:00)
--- NOTE | 2023-05-08 08:50 | Cardiology Consultation ---
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 EKG without ischemic changes. Serial high-sensitivity troponin levels are normal. Patient reportedly has a history of CT and coronary stent performed in the town of [place], [place] but does not recall the name of the hospital. Since today is a Wednesday, even if we are able to elucidate which institution does, likely would not be able to obtain records until Wednesday. -The patient demonstrates a cough during my interview and examination with her. She believes that she had a injury to her chest 3 weeks ago, but the discomfort that she had sought care about started yesterday. -At present I think we have two alternative explanations other than angina in terms of chest wall pain from rib fractures, and aggravation of chest wall pain in the setting of cough with what appears to be a bronchitis/COPD exacerbation. -A transthoracic echocardiogram has been ordered and is pending. -Patient has been found to have high-grade occlusive disease of the left internal carotid artery. Need to have vascular surgery weigh in with regards to best approach. Arranging expedited outpatient assessment likely difficult due to the patient's insurance status. -Continue aspirin, atorvastatin. Agree with antibiotic therapy. History of Present Illness Attending Physician: Aiden Coats MD History of Present Illness Josye Rothman is a 57 year old female seen in cardiology consultation per the request of Yen Ohara PA-C for the evaluation of chest discomfort. Patient reportedly had a myocardial infarction with coronary stenting performed a year ago in [place]. She has had issues due to lack of insurance, and is followed intermittently with the [facility]. She reportedly discontinued her clopidogrel prematurely due to concerns of difficulty with her vision when she was outside in the sun. She reports that she has had left-sided chest discomfort. She had a recent chest injury while looking for items in a trash dumpster. Telemetry reveals sinus rhythm in the 80s. She did have a brief run of an accelerated junctional tachycardia with rates in the 90s at 738 this morning that lasted a few beats. EKG performed yesterday on arrival and again this morning reveals sinus rhythm Without repolarization changes to suggest ischemia. High-sensitivity troponin measurements are negative x4 thus far. A CT angiogram performed on presentation yesterday was negative for pulmonary embolism however there are findings suggestive of early subacute appearing left anterior lateral sixth through eighth rib fractures and old or subacute appearing rib fractures on the right. The heart silhouette was enlarged with suggestion of congestive heart failure per the radiology report. There is diffuse peribronchial thickening suggestive of bronchitis. Lymphadenopathy noted. Advanced coronary calcification noted. Suggestion of high-grade stenosis and near complete occlusion at the origin of the left internal carotid artery observed and moderate stenosis at the origin of the left subclavian artery. The patient has since had a carotid duplex that revealed extensive plaque within the left internal carotid artery with no flow identified in the mid to distal left internal carotid artery. Allergies Allergy/AdvReac Type Severity Reaction Status Date / Time ibuprofen AdvReac Intermediate RASH Verified 12/03/21 09:38 naproxen AdvReac Intermediate rash Verified 12/03/21 09:38 Home Medications Medication Instructions Recorded Confirmed Type aspirin 81 mg tablet,delayed 162 mg PO DAILY 05/07/23 05/07/23 History release atorvastatin 80 mg tablet 80 mg PO DAILY 05/07/23 05/07/23 History Patient History Medical History Tobacco use COPD (chronic obstructive pulmonary disease) CAD (coronary artery disease) Type II diabetes mellitus Dyslipidemia Sepsis Surgical History Status post incision and drainage bilateral buttocks S/P tubal ligation History of ankle surgery History of mandibular surgery S/P tonsillectomy Family History Uncle Colorectal cancer paternal Mother Ovarian cancer unsure if it was uterine cancer Sister Uterine cancer Denies family history of Breast cancer Social History Smoking Status: Heavy tobacco smoker Tobacco Type: Cigarettes Cigarettes Per Day: 10; Second Hand Exposure: No; Do You Dip or Chew Tobacco: No; Tobacco Cessation Education Requested by Patient: No Hx Alcohol Use: No Hx Substance Use: Yes Non-Prescribed Medications: Marijuana Preferred Language: Mongolian Communication Ability: Effective Visual Impairment: Limited Hearing Ability: Normal Survey Manager Required: No Beliefs That Will Affect Care: None marital status: Current Living Situation: Family Current Living Situation Comment: current occupational status: employed current occupation: C[employer] How many Children do You have: 5 How many Children do You have Comment: CHILDREN INVOLVED WITH CARE AND ABLE TO ASSIST. Feels Safe at Home: Yes Diet: regular during the past year weight has: decreased > 10 lbs Assistive Devices: Glasses Review of Systems Review of Systems: All systems reviewed & are unremarkable except as noted in HPI & below Physical Exam Constitutional: WD/WN, vitals as above Respiratory: + cough Auscultation: no crackles, no rales and no wheezes Cardiovascular: RRR, no murmur, no edema Gastrointestinal (Abdomen): normal bowel sounds, soft, nontender, no hepatosplenomegaly Results & Data Vital Signs (Past 12 Hours) Vital Signs Temp Pulse Pulse Pulse Resp BP Pulse Ox 05/08/23 07:56 36.8 C 81 18 113/73 97 05/08/23 07:41 81 16 97 05/08/23 03:56 36.9 C 88 18 93/60 L 96 05/08/23 00:00 81 05/07/23 23:00 36.7 C 89 18 90/54 L 97 05/07/23 21:00 O2 Del Method 05/08/23 07:56 Room Air 05/08/23 07:41 Room Air 05/08/23 03:56 Room Air 05/08/23 00:00 05/07/23 23:00 Room Air 05/07/23 21:00 Room Air Laboratory Results Cardiac Enzymes 05/07/23 05/07/23 05/07/23 Range/Units 10:20 12:49 16:59 AST 12 L (13-39) U/L Troponin I High Sens 5.9 10.2 D (0-14) pg/ml B-Natriuretic Peptide 185 H (0-100) pg/ml 05/07/23 05/08/23 Range/Units 22:16 04:12 AST (13-39) U/L Troponin I High Sens 6.4 8.5 (0-14) pg/ml B-Natriuretic Peptide (0-100) pg/ml Coagulation 05/07/23 05/07/23 Range/Units 10:20 12:49 PT 10.7 (9.0-12.0) Seconds APTT 28.5 (21.0-31.0) Seconds B-Natriuretic Peptide 185 H (0-100) pg/ml Lipids 05/08/23 Range/Units 04:12 Triglycerides 78 (0-150) mg/dl Cholesterol 134 (0-200) mg/dl HDL Cholesterol 46 mg/dl Cholesterol/HDL Ratio 2.9 (0-5) CBC 05/07/23 05/08/23 Range/Units 10:20 04:12 WBC 17.82 H 11.49 H (4.8-10.8) K/ul RBC 4.94 4.44 (4.20-5.40) M/uL Hgb 13.6 12.1 (12.0-16.0) g/dl Hct 42.4 38.3 (37.0-47.0) % Plt Count 303 241 (130-400) K/uL Neut # (Auto) 14.42 H 7.42 H (1.40-6.50) K/uL Lymph # (Auto) 1.89 2.45 (1.20-3.40) K/uL [place] # (Auto) 1.24 H 1.28 H (0.11-0.59) K/uL Eos # (Auto) 0.15 0.27 (0.00-0.50) K/uL Baso # (Auto) 0.06 0.03 (0.00-0.20) K/uL Comprehensive Metabolic Panel 05/07/23 05/08/23 Range/Units 10:20 04:12 Sodium 139 138 (136-145) mmol/L Potassium 3.8 4.0 (3.5-5.1) mmol/L Chloride 106 109 H (98-107) mmol/L Carbon Dioxide 27 23 (21-32) mmol/L BUN 19 14 (6-23) mg/dl Creatinine 0.62 0.49 L (0.6-1.2) mg/dl Glucose 203 H 150 H (70-99(Fasting)) mg/dl Calcium 8.9 8.6 (8.6-10.3) mg/dl AST 12 L (13-39) U/L ALT 17 (7-52) U/L Alkaline Phosphatase 120 H (34-104) U/L Total Protein 7.3 (6.0-8.3) gm/dl Albumin 3.8 (3.4-5.0) gm/dl Intake and Output 05/07/23 05/08/23 05/08/23 22:59 06:59 14:59 Intake Total 755 / 1855 Balance 755 / 1855 Intake: IV 755 / 1855 Azithromycin 500 mg In Dextrose 255 / 255 5% 250 ml @ 125 mls/hr IV DAILY [facility] Rx#:[id number] Sodium Chloride 0.9% 500 ml @ 500 / 500 999 mls/hr IV .Q31M ONE Rx#: [id number] Other: Weight 97.7 kg 100.2 kg Weight Measurement Method [facility] in [facility] (1) Chest pain Chest pain type: chest pain on breathing Qualified Code(s): R07.1 - Chest pain on breathing
[2023-05-08] MEDS: ASPIRIN 81 MG ECTAB PO SCH (09:56)
[2023-05-08] MEDS: ATORVASTATIN 40 MG TAB PO SCH (09:57)
[2023-05-08] MEDS: NICOTINE 21 MG/24 HR TDSY TD SCH (09:57)
[2023-05-08] MEDS: AZITHROMYCIN 500 MG in DEXTROSE 5% 250 ML IV SCH (10:38)
[2023-05-08] MEDS: HEPARIN SOD 5,000 UNIT/0.5 ML VIAL SQ SCH ×2 (10:44→21:38)
[2023-05-08] MEDS: LANTUS PER UNIT CHARGE SQ SCH (11:35)
[2023-05-08] MEDS: ACETAMINOPHEN 325 MG TAB PO PRN ×2 (14:54→21:36)
[2023-05-09 06:13] LABS: Hematocrit (blood only) 37.9 % (37.0-47.0); Hemoglobin 12.3 g/dl (12.0-16.0); Mean Corpuscular Hemoglobin 27.3 pg (25.0-34.0); Mean Corpuscular Hgb Conc 32.5 g/dL (32.0-36.0); Mean Platelet Volume 9.4 fL (9.4-12.4); Platelet Count 271 K/uL (130-400); RDW Coefficient of Variation 14.2 % (11.5-14.5); RDW Standard Deviation 43.4 fL (36.4-46.3); Red Blood Count 4.51 M/uL (4.20-5.40); White Blood Count 11.72 K/ul (4.8-10.8)
[2023-05-09 06:32] LABS: BUN Creatinine Ratio 34.7 (10-20); Creatinine Clr Calc Pharmacy 143.8 ml/min; Est GFR (African American) 126.2 ml/min; Est GFR (Non-African American) 108.9 ml/min; Phosphorus 4.3 mg/dl (2.5-4.9); Potassium 4.2 mmol/L (3.5-5.1)
[2023-05-09] MEDS: ALBUT/IPRATROP 3MG/0.5MG NEB 3 ML VIAL NEB SCH ×2 (07:18→11:33)
[2023-05-09] MEDS: ASPIRIN 81 MG ECTAB PO SCH (09:00)
[2023-05-09] MEDS: NICOTINE 21 MG/24 HR TDSY TD SCH (09:00)
[2023-05-09] MEDS: ATORVASTATIN 40 MG TAB PO SCH (09:00)
[2023-05-09] MEDS: AZITHROMYCIN 500 MG in DEXTROSE 5% 250 ML IV SCH (09:03)
[2023-05-09] MEDS: INSULIN ASPART PER UNIT CHARGE SC SCH (09:16)
[2023-05-09] MEDS: HEPARIN SOD 5,000 UNIT/0.5 ML VIAL SQ SCH (11:42)
--- NOTE | 2023-05-09 11:59 | Cardiology Progress Note ---
Date of Service May 09, 2023 Assessment & Plan (1) Chest pain: Plan: -Patient presents with history of chest pain on deep inspiration of 1 day duration. EKG without ischemic changes. Serial high-sensitivity troponin levels are normal. Patient reportedly has a history of MT and coronary stent performed in the town of [place], [place] but does not recall the name of the hospital. -Symptoms suggestive of chest wall pain in the setting of subacute anterior rib fractures, and cough related to COPD/bronchitis episode. -Continue aspirin, atorvastatin. -Patient with history of nonadherence to medications. -Although she was noted to have 2 brief episodes of atrial tachycardia, she is asymptomatic from that standpoint. And I think it is best to just focus on her maintaining adherence to aspirin and the atorvastatin to start off. -No further work-up for ischemic heart disease felt to be indicated at present. (2) Left carotid artery occlusion: Plan: -Dr Coats had reviewed the patient's case and images with [place] [facility] [place] the advised that this would be treated like a chronic occlusion with ongoing medication/risk factor modification. Continue aspirin, atorvastatin as noted. (3) Valvular heart disease: Plan: -Echocardiogram reveals moderate aortic stenosis and severe mitral regurgitation. The evaluation of the mitral regurgitation is somewhat technically limited on the present study. Significant mitral annular calcification however is present. When compared to previous echocardiogram dating back to 2019, moderate aortic stenosis was present at that time with valve indices similar to that noted on the present study from this admission. Mild to moderate mitral regurgitation was noted in 2019 and has progressed. -Clinically, patient is without congestive heart failure. The patient tells me she plans to stay in this area "for a little while longer ". I recommended that she reestablishes with [facility] and in turn with local cardiology. -Due to concerns with adherence, she is not an ideal candidate for surgical / percutaneous intervention for her valve disease. --Case discussed with Dr Coats. Tentative plan is for discharge today. Admission and Anticipated Discharge Date Admission Date: May 07, 2023 Subjective Patient seen in cardiology follow up. Denies cardiac complaints. Eager for discharge. Telemetry reveals SR in the 70s to 80s with PACs. Two brief runs of atrial tachycardia observed of 7 seconds in duration at 845 am and 9:45 am. Review of Systems Cardiovascular: no chest pain, no chest pain with activity, no dyspnea, no syncope and no edema Physical Exam Constitutional: WD/WN, vitals as above Respiratory: + cough Auscultation: no crackles, no rales and no wheezes Cardiovascular: Rate/Rhythm: regular rate and regular rhythm Heart Sounds: + murmur (2/6 systolic murmur) Gastrointestinal (Abdomen): normal bowel sounds, soft, nontender, no hepatosplenomegaly Results & Data Vital Signs (Past 12 Hours) Vital Signs Temp Pulse Pulse Resp BP Pulse Ox O2 Del Method 05/09/23 11:25 37.2 C 87 20 108/68 96 Room Air 05/09/23 07:50 37.0 C 84 18 117/75 96 Room Air 05/09/23 07:18 79 18 96 Room Air 05/09/23 06:00 89 05/09/23 03:50 36.8 C 83 15 101/65 96 Room Air 05/09/23 01:27 Room Air 05/09/23 01:26 84 05/09/23 00:30 36.6 C 78 20 91/57 L 98 Room Air Laboratory Results CBC 05/09/23 Range/Units 05:57 WBC 11.72 H (4.8-10.8) K/ul RBC 4.51 (4.20-5.40) M/uL Hgb 12.3 (12.0-16.0) g/dl Hct 37.9 (37.0-47.0) % Plt Count 271 (130-400) K/uL Comprehensive Metabolic Panel 05/09/23 Range/Units 05:57 Sodium 140 (136-145) mmol/L Potassium 4.2 (3.5-5.1) mmol/L Chloride 109 H (98-107) mmol/L Carbon Dioxide 24 (21-32) mmol/L BUN 17 (6-23) mg/dl Creatinine 0.49 L (0.6-1.2) mg/dl Glucose 150 H (70-99(Fasting)) mg/dl Calcium 9.0 (8.6-10.3) mg/dl Intake and Output 05/08/23 05/09/23 05/09/23 22:59 06:59 14:59 Intake Total 240 / 495 0 / 495 255 / 255 Balance 240 / 495 0 / 495 255 / 255 Intake: IV 255 / 255 Azithromycin 500 mg In Dextrose 255 / 255 5% 250 ml @ 125 mls/hr IV DAILY BUDDY Rx#:[id number] Oral 240 / 240 0 / 240 Other: Weight 99 kg Weight Measurement Method Built in [facility] (1) Chest pain Chest pain type: chest pain on breathing Qualified Code(s): R07.1 - Chest pain on breathing
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
--- NOTE | 2023-05-09 19:52 | Electrocardiogram Report ---
Test Reason : Blood Pressure : / mmHG Vent. Rate : 092 BPM Atrial Rate : 092 BPM P-R Int : 150 ms QRS Dur : 098 ms QT Int : 380 ms P-R-T Axes : 033 063 043 degrees QTc Int : 469 ms Normal sinus rhythm Normal ECG When compared with ECG of 07-MAY-2023 10:13, T wave amplitude has increased in Lateral leads Confirmed by Usman Bowers ([id number]) on 05/09/2023 7:52:46 PM Referred By: REFERRED SELF Confirmed By:Usman Bowers
--- OUTSIDE RECORDS SUMMARY | 2023-05-11 07:35 | External Medical Summary | Summary of Care ---
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 [address] [id number] [place], Nurse [facility] [address] [id number] Screening-pulmonary TB* Allergies Active Allergy Reactions Severity Noted Date Comments Ibuprofen Edema face/lips/tongue,Hives,Rash High 03/22/2014 Swelling of lips documented as of this encounter (statuses as of 12/04/2022) Medications Medication Sig Dispensed Refills Start Date End Date Status Mometasone Furoate 50 MCG/ACT nasal spray Administer 2 Sprays into nostril daily. 0 Active lisinopril (PRINIVIL) 5 MG Tablet TAKE 1 TABLET BY MOUTH DAILY 30 Tab 0 10/08/2016 Active celecoxib (CELEBREX) 200 MG Capsule TAKE 1 CAPSULE BY MOUTH DAILY 30 Cap 5 02/01/2017 Active albuterol (VENTOLIN HFA) 108 (90 BASE) MCG/ACT inhalerIndications: Reactive airway disease,Cough USE TWO PUFFS FOUR TIMES A DAY, DIRECTED 1 Inhaler 3 02/08/2017 Active EPINEPHrine, anaphylaxis, (EPI-PEN) 0.3 MG/0.3ML SOAJ injection For a severe reaction: Place orange end against the outer thigh, press firmly, hold in place for 10 seconds and go to the Emergency room. 2 Device 3 02/19/2017 Active gabapentin (NEURONTIN) 300 MG CapsuleIndications: Generalized OA Take 1 Cap by mouth 3 times a day. 30 Cap 5 02/19/2017 Active atorvaSTATin (LIPITOR) 40 MG Tablet Take 1 Tab by mouth daily. 30 Tab 5 02/19/2017 Active JANUVIA 50 MG TabletIndications:T ype 2 diabetes mellitus with hemoglobin A1c goal of less than 7.0% ([facility]) TAKE 1 TABLET EVERY DAY 30 Tab 5 04/06/2017 Active DULoxetine (CYMBALTA) 60 MG CPEP TAKE 1 CAP BY MOUTH DAILY. 30 Cap 6 04/05/2017 Active fluticasone Furoate (ARNUITY ELLIPTA) 100 MCG/ACT AEPB inhaler Inhale 1 Puff by mouth daily. 1 Inhaler 5 04/07/2017 Active One-A-Day Womens 50+ Oral Tablet Take by mouth daily . 0 Active Vitamin D (Cholecalciferol) 50 MCG (2000 UT) Oral Capsule Take by mouth daily . 0 Active Ensure Oral Liquid Take by mouth 2 times a day . Using with peanut butter powder for added protein 0 Active Vitamin C Adult Gummies 125 MG Oral Tablet Chewable (Ascorbic Acid) Take by mouth . 0 Acti ve Docusate Sodium 100 MG Oral Capsule (Colace) Take by mouth 100 mg in the morning AND 100 mg before bedtime. 0 Active documented as of this encounter (statuses as of 12/04/2022) Active Problems Problem Noted Date Rotator cuff syndrome of both shoulders 07/02/2016 Generalized OA 07/02/2016 Type 2 diabetes mellitus with hemoglobin A1c goal of less than 7.0% 04/28/2016 HTN, goal below 140/90 12/09/2015 Overview: Per HTN Protocol Obesity, morbid (more than 100 lbs over ideal weight or BMI > 40) 11/30/2012 Overview: bmi= 53.41 11/30/12 Urticaria 11/30/2012 OBESITY, UNSPECIFIED 05/05/2002 documented as of this encounter (statuses as of 12/04/2022) Resolved Problems Problem Noted Date Resolved Date Left tennis elbow 07/02/2016 02/23/2017 Obesity, morbid (more than 1 00 lbs over ideal weight or BMI > 40) 07/24/2013 02/23/2017 Overview: bmi= 54.03 07/24/13 Left wrist pain 07/24/2013 02/23/2017 Other chest pain 07/24/2013 02/23/2017 Hyperglycemia 07/24/2013 07/27/2013 Prediabetes 07/24/2013 02/23/2017 Dental disorder 03/03/2013 02/23/2017 CONJUNCTIVITIS OD 10/31/2002 02/23/2017 Vernal conjunctivitis 10/31/2002 02/23/2017 Tobacco use disorder 05/05/2002 11/30/2012 Allergic rhinitis 02/23/2017 Hypertension goal BP (blood pressure) < 140/80 12/12/2015 Overview: Per HTN Protocol documented as of this encounter (statuses as of 12/04/2022) Immunizations Name Administration Dates Next Due Hepatitis B, 20+ yrs 12/17/2016,06/18/2016,04/28 PPD 12/04/2022, 7,01/14/2017,01/07 Pneumococcal Polysaccharide PPV23 (Pneumovax) 03/03/2013 Seasonal Influenza, Quadriva lent, No Preserve, 6 Mons & Above, IM 03/27/2022,03/29/2017 Seasonal Influenza, Quadriva lent, No Preserve, IM 04/28/2016 Seasonal Influenza, Split, I IV3, With Preserve, Inj 04/05/2014,04/25/2013 TDAP (age 10 and older)(Boostrix) 03/03/2013 documented as of this encounter Social History Tobacco Use Types Packs/Day Years Used Date Smoking Tobacco: Every Day Cigarettes 1 35 Smokeless Tobacco: Never Comments:began at age 12 or 13, last tried to quit 1990 Alcohol Use Standard Drinks/Week Comments Yes 0 (1 standard drink = 0.6 oz pur e alcohol) occ Sex Assigned at Date Recorded Not on file Job Start Date Occupation Industry Not on file Not on file Not on file documented as of this encounter Patient Instructions * Patient Instructions* Vanessa Smith LPN - 12/04/2022 11:25 AM EDT PATIENT INSTRUCTIONS FOR TUBERCULOSIS TESTING Also known as: Purified Protein Derivative (PPD) IMPORTANT INFORMATION: Return to clinic on 12/06/22 after 1125 am but before 1125 am on 12/07/22 in order to have your PPD read. Whether you have active TB disease or simply test positive for TB infection, you must see a healthcare professional for evaluation and treatment. Tuberculosis (TB) is a disease that spreads through the air. It can cause serious health problems. TB is on the rise. To protect your health, get tested. Who Should Be Tested? Anyone can be exposed to TB. However, certain people are at higher risk for exposure, especially healthcare professionals, the homeless, and people coming from countries with high TB rates. People whose bodies are less able to fight off infections, such as the elderly and people with HIV and AIDS, are also more likely to get TB. If youre at risk for exposure, get tested regularly. The TB Skin Test The TB skin test tells you if the tuberculosis bacteria are in your body. Your healthcare professional places a small amount of solution under the skin with a needle to see if a reaction occurs. Keepin mind that although many people are infected with TB, very few develop TB disease. Getting Your TB Test Results Your test results will be evaluated during the next visit. In some cases, a second test may be doneto confirm results. What Do the Test Results Mean? Negative results mean you likely dont have the TB bacteria in your body. Positive results mean that you may have been infected with the TB bacteria. This doesnt necessarily mean you have active TB disease. More tests, such as chest x-rays, are needed to find out if youhave TB disease. [id number] [employer], [address] [place] [address], [place] [address]. All rights reserved. This information is not intended as a substitute for professional medical care. Always follow your healthcare professional's instructions. documented in this encounter Progress Notes * Vanessa Smith LPN - 12/04/2022 11:23 AM EDT Patient here for PPD administration. Patient verified by name and date of . Has patient ever had a positive PPD Screening Test? No Have you ever had a severe reaction to a PPD test? No Has patient ever had the BCG tuberculosis vaccine? No If the patient responds yes to any of the questions, they are NOT eligible for a PPD. DO NOT administer the PPD Screening Test and Notify the provider. Do you have a history of organ transplant or are you chronically immunosuppressed for any other reason? No Have you had any recent contact with someone who has TB? No Do you work in healthcare, in a mycobacteriology lab or in a correctional facility? No Do you have any history of injection drug use? No PPD administered per protocol in Left forearm at 1125 am on 12/04/2022. Patient instructed to return to clinic in 48-72 hours to have test read and was informed that failure to return within this time window invalidates the test results. documented in this encounter Plan of Treatment Scheduled Procedures Name Priority Associated Diagnoses Date/Ti me COLONOSCOPY FLEXIBLE PROXIMAL DIAGNOSTIC Recall History of colon polyps Health Maintenance Due Date Last Done Comments DISCUSS TOBACCO CESSATION (REFER TO SMARTSET #[id number]) 1966 COVID-19 Vaccine (#1) 04/03/1967 DIABETES-EYE EXAM 1984 Hepatitis C Screening 1984 Pneumococcal Vaccine: Pediatrics (0 to 5 Years) and At-Risk Patients (6 to 64 Years) (2 - PCV) 03/03/2014 03/03/2013 Zoster Vaccines (1 of 2) 2016 Mammogram 05/05/2017 05/05/2016 DIABETES-FOOT EXAM 10/01/2017 10/01/2016 Depression Screening, Annual for Pts 12 and Over 02/19/2018 02/19/2017 Albumin/Creatinine Ratio 08/17/2018 08/17/2017, 04/0 11/2016 HbA1c 07/18/2021 01/15/2021, 02/0 10/2019, 08/17/2017, Additional history exists GFR 01/15/2022 01/15/2021, 02/2 , 02/19/2017, Additional history exists COLONOSCOPY-EVERY 5 YRS AGES 18-100 03/10/2022 03/10/2017 DTaP,Tdap,and Td Vaccines (2 - Td or Tdap) 03/03/2023 03/03/2013, 04/21/2002 Lipid Panel 01/15/2026 01/15/2021, 07/30, 02/19/2017, Additional history exists Pap Smear 07/30/2026 07/30/2021, 04/0 11/2016, 08/22/2012 (Done elsewhere), Additional history exists Hepatitis B Completed 12/17/2016, 05/29, 04/28/2016 LUNG CANCER SCREENING - USE SMARTSET 38934 Completed 07/30/2017 Influenza Vaccine (FLU shot) Completed , 03/29/2017, 04/28/2016, Additional history exists GARDASIL-HPV IMMUNIZATION SERIES Aged Out No longer eligible based on patient's age to complete this topic MENINGOCOCCAL (MENACTRA/MENVEO) Aged Out No longer eligible based on patient's age to complete this topic documented as of this encounter Medical Devices Not on filedocumented as of this encounter Visit Diagnoses Diagnosis Screening-pulmonary TB- Primary Screening examination for pulmonary tuberculosis documented in this encounter Advance Directives Latest Code Status on File Code Status Date Activated Date Inactivated Comments Full Code 10/15/2021 8:25 AM 10/15/2021 2:26 PM This order reflects the patients wishes and were consensually agreed upon. Code Status History Code Status Date Activated Date Inactivated Comments Full Code 10/15/2021 6:59 AM 10/15/2021 8:25 AM This order reflects the patients wishes and were consensually agreed upon. 

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
--- OUTSIDE RECORDS SUMMARY | 2023-05-11 07:35 | External Medical Summary | Summary of Care ---
Author Name Unknown Organization [facility] Address [address] [place] [address] Phone [phone] Care Team Providers Care Paper Twister Tender Name Role Phone Medicine, [place] [facility] Primary Care Prov ider Encounter Details Date Type Department Care Team Description 12/28/2022 Orders Only Outcomes Research Department [address], [place] [id number] Vickie Cason CHRA [facility] Research Other*[id number] Allergies Active Allergy Reactions Severity Noted Date Comments Ibuprofen Edema face/lips/tongue,Hives,Rash High 03/22/2014 Swelling of lips documented as of this encounter (statuses as of 12/28/2022) Medications Medication Sig Dispensed Refills Start Date [...] hemoglobin A1c goal of less than 7.0% ([facility]) TAKE 1 TABLET EVERY DAY 30 Tab [...] as of this encounter (statuses as of 12/28/2022) Active Problems Problem Noted Date Rotator cuff [...] as of this encounter (statuses as of 12/28/2022) Resolved Problems Problem Noted Date Resolved Date [...] as of this encounter (statuses as of 12/28/2022) Immunizations Name Administration Dates Next Due Hepatitis [...] on file documented as of this encounter Plan of Treatment Scheduled Orders Name Type Priority Associated Diagnoses Orde r Schedule MYCODE INITIAL ADULT Lab Routine [facility] Research Other*[id number] Expected: 12/28/2022 (Approximate), Expires: 01/17/2024 Scheduled Procedures Name Priority Associated Diagnoses Date/Ti me COLONOSCOPY FLEXIBLE PROXIMAL DIAGNOSTIC Recall History of colon polyps Health Maintenance Due Date Last Done Comments DISCUSS TOBACCO CESSATION (REFER TO SMARTSET #3291) 1965 COVID-19 Vaccine (#1) 04/03/1967 DIABETES-EYE EXAM 1984 Hepatitis C Screening 1984 Pneumococcal Vaccine: Pediatrics (0 to 5 Years) and At-Risk Patients (6 to 64 Years) (2 - PCV) 03/03/2014 03/03/2013 Zoster Vaccines (1 of 2) 2016 Mammogram 05/05/2017 05/05/2016 DIABETES-FOOT EXAM 10/01/2017 10/01/2016 Depression Screening, Annual for Pts 12 and Over 02/19/2018 02/19/2017 Albumin/Creatinine Ratio 08/17/2018 08/17/2017, 040 11/2016 HbA1c 07/18/2021 01/15/2021, 02/0 10/2019, 08/17/2017, [...] 04/28/2016 LUNG CANCER SCREENING - USE SMARTSET [id number] Completed 07/30/2017 Influenza Vaccine (FLU shot) Completed , 03/29/2017, 04/28/2016, Additional history exists GARDASIL-HPV IMMUNIZATION SERIES Aged Out No longer eligible based on patient's age to complete this topic MENINGOCOCCAL (MENACTRA/MENVEO) Aged Out No longer eligible based on patient's age to complete this topic documented as of this encounter Medical Devices Not on filedocumented as of this encounter Visit Diagnoses Diagnosis [facility] Other*[id number] documented in this encounter Advance Directives Latest [...] and were consensually agreed upon. Care Teams Paper Twister Tender Relationship Specialty Start Date End Date Medicine, [place] [facility] [facility] [address] [address] PCP - General 07/14/21 documented as of this encounter
[2023-05-12 13:56] LABS: Amphetamine Urine, Confirm 1398 ng/mL (<250); MDA negative; MDEA negative; MDMA (Ecstasy) Urine, Confirm negative; Marijuana Quant, GCMS Urine 327 ng/mL (<5); Methamphetamine, Ur Confirm 9341 ng/mL (<250)
== END 2023-05-09 13:01 | disposition home or self-care (01) ==
LOC: ED 09:59 → 2N 09:59 → SUATTDRO 15:54 → 2N 16:58